=== PATIENT | male | born 2000 | race Caucasian/White ===

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

== ENCOUNTER 2019-03-16 20:12 | Emergency (ER) | payer MEDICAID ==
[2019-03-16 20:30] LABS: BILIRUBIN,URINE NEGATIVE (NEGATIVE); GLUCOSE, URINE (UA) NEGATIVE (NEGATIVE); KETONES,URINE (UA) TRACE mg/dL (NEGATIVE); LEUKOCYTE ESTERASE, URINE NEGATIVE (NEGATIVE); NITRITE,URINE NEGATIVE (NEGATIVE); OCCULT BLOOD,URINE NEGATIVE (NEGATIVE); PH,URINE 6.5 PH (5.0-7.5); PROTEIN,URINE TRACE mg/dL (NEGATIVE); UROBILINOGEN,URINE 0.2 (NORMAL) E.U./dL (NORMAL)
[2019-03-16 20:32] LABS: CLARITY,URINE CLEAR (CLEAR)
--- NOTE | 2019-03-16 20:47 | ED Physician Documentation ---
PD HPI BACK PAIN - Stated complaint Stated Complaint: BACK PX - Chief complaint Chief Complaint: Back Pain - History obtained from History obtained from: Patient - History of Present Illness Timing - onset: Other (Is a 18-year-old with 3 years of right flank pain. Is worse with motion. He thinks he has been losing weight with it and had a single episode of hematuria with it the other night. He has a lot of anxiety problems and it was only after significant coaxing that he sought medical attention for this. He is never seen a doctor for it before.) Review of Systems Constitutional: denies: Fever, Chills Nose: reports: Reviewed and negative Cardiac: reports: Reviewed and negative Respiratory: reports: Reviewed and negative GI: reports: Abdominal Pain. denies: Nausea, Vomiting, Constipation, Diarrhea PD PAST MEDICAL HISTORY - Past Medical History Past Medical History: No - Past Surgical History Past Surgical History: No - Present Medications Home Medications: Ambulatory Orders Medication Instructions Recorded Confirmed Cyclobenzaprine [Flexeril] 10 mg PO TID PRN #20 tablet 03/16/19 Ibuprofen [Motrin] 800 mg PO Q8H PRN #30 tablet 03/16/19 - Allergies Allergies/Adverse Reactions: Allergies Allergy/AdvReac Type Severity Reaction Status Date / Time No Known Drug Allergies Allergy Verified 03/16/19 20:17 - Social History Does the pt smoke?: Yes Smoking Status: Current every day smoker Does the pt drink ETOH?: No Does the pt have substance abuse?: No - Immunizations Immunizations are current?: Yes - POLST Patient has POLST: No PD ED PE NORMAL - Vitals Vital signs reviewed: Yes - General General: Alert and oriented X 3, No acute distress - Cardiac Cardiac: RRR, No murmur - Respiratory Respiratory: No respiratory distress, Clear bilaterally - Abdomen Abdomen: Normal bowel sounds, Soft, Non tender - Back Back: No spinal TTP, Other (Mod R flank TTP, no skin chgs) - Derm Derm: Normal color, Warm and dry - Extremities Extremities: No edema, No calf tenderness / cord - Neuro Neuro: Alert and oriented X 3, 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, Normal speech Results - Vitals Vitals: Vital Signs - 24 hr 03/16/19 03/16/19 03/16/19 20:15 20:17 21:37 Temperature 37.0 C Heart Rate 121 H 121 H 80 Respiratory 18 18 16 Rate Blood Pressure 137/78 H 137/78 H 119/68 O2 Saturation 98 98 97 Oxygen O2 Source Room air - Labs Labs: Laboratory Tests 03/16/19 03/16/19 03/16/19 20:20 20:50 20:50 WBC 7.7 RBC 4.68 L Hgb 14.7 Hct 42.5 MCV 90.8 MCH 31.4 H MCHC 34.6 RDW 13.0 Plt Count 252 MPV 9.0 Neut # (Auto) 4.4 Lymph # (Auto) 2.4 [place] # (Auto) 0.6 Eos # (Auto) 0.2 Baso # (Auto) 0.1 Absolute Nucleated RBC 0.00 Nucleated RBC % 0.0 Sodium 138 Potassium 3.6 Chloride 99 L Carbon Dioxide 31 Anion Gap 8.0 BUN 13 Creatinine 0.6 Estimated GFR (MDRD) 174 Glucose 116 H Calcium 9.3 Total Bilirubin 0.2 AST 19 ALT 15 Alkaline Phosphatase 75 Total Protein 7.0 Albumin 4.4 Globulin 2.6 Albumin/Globulin Ratio 1.7 Lipase 28 Urine Color YELLOW Urine Clarity CLEAR Urine pH 6.5 Ur Specific [place] 1.020 Urine Protein TRACE Urine Glucose (UA) NEGATIVE Urine Ketones TRACE Urine Occult Blood NEGATIVE Urine Nitrite NEGATIVE Urine Bilirubin NEGATIVE Urine Urobilinogen 0.2 (NORMAL) Ur Leukocyte Esterase NEGATIVE Ur Microscopic Review NOT INDICATED Urine Culture Comments NOT INDICATED - Rads (name of study) CT KUB Radiology: EMP read contemporaneously (Schmorls node low T spine. otherwise NAD) Departure - Departure Disposition: 01 Home, Self Care Clinical Impression: Back pain, Schmorl's node Condition: Good Record reviewed to determine appropriate education?: Yes Instructions: ED Neck Back Pain General Prescriptions: Cyclobenzaprine [Flexeril] 10 mg PO TID PRN #20 tablet PRN Reason: Spasms Ibuprofen [Motrin] 800 mg PO Q8H PRN #30 tablet PRN Reason: PAIN &/OR FEVER Comments: Your CAT scan does show Schmorl's nodes in the lower thoracic spine. These can cause pain and may be causing her chronic mid back pain. No other serious abnormalities were noted on the CAT scan or labs. Follow-up with your primary care physician, next available appointment for further evaluation and treatment. Return for new or worsening symptoms. Discharge Date/Time: 03/16/19 21:37
[2019-03-16 20:55] LABS: BASOPHILS # (AUTO) 0.1 10^3/uL (0.0-0.1); BASOPHILS % (AUTO) 0.8 %; EOSINOPHILS # (AUTO) 0.2 10^3/uL (0.0-0.7); EOSINOPHILS % (AUTO) 2.8 %; HGB - HEMOGLOBIN 14.7 g/dL (14.0-18.0); LYMPHOCYTES # (AUTO) 2.4 10^3/uL (1.5-3.5); LYMPHOCYTES % (AUTO) 31.4 %; MEAN CORPUSCULAR HEMOGLOBIN 31.4 pg (27.0-31.0); MEAN CORPUSCULAR HGB CONC 34.6 g/dL (32.0-36.0); MEAN CORPUSCULAR VOLUME 90.8 fL (80.0-94.0); MONOCYTES # (AUTO) 0.6 10^3/uL (0.0-1.0); MONOCYTES % (AUTO) 7.9 %; NEUTROPHILS # (AUTO) 4.4 10^3/uL (1.5-6.6); NEUTROPHILS % (AUTO) 57.1 %; PLT - PLATELET COUNT 252 10^3/uL (130-450); RED BLOOD COUNT 4.68 10^6/uL (4.70-6.10); WHITE BLOOD COUNT 7.7 x10^3/uL (4.8-10.8)
[2019-03-16 21:08] LABS: ALBUMIN 4.4 g/dL (3.2-5.5); ALBUMIN/GLOBULIN RATIO 1.7 (1.0-2.2); BILIRUBIN,TOTAL 0.2 mg/dL (0.2-1.0); CALCIUM 9.3 mg/dL (8.5-10.3); CREATININE 0.6 mg/dL (0.6-1.2)
--- NOTE | 2019-03-16 21:16 | CT Report ---
Reason: R flank pain Procedure Date: 03/16/2019 Accession Number: [id number] / [id number] Procedure: CT - Abdomen/Pelvis WO CPT Code: FULL RESULT: EXAM: CT ABDOMEN AND PELVIS (CT KUB) EXAM DATE: 03/16/2019 09:04 PM. CLINICAL HISTORY: R flank pain. Chronic lower back pain for multiple years. Blood in urine today. COMPARISONS: None. TECHNIQUE: Routine axial helical CT imaging was performed through the abdomen and pelvis without IV contrast. Reconstructions: Coronal and sagittal. In accordance with CT protocol optimization, one or more of the following dose reduction techniques were utilized for this exam: automated exposure control, adjustment of mA and/or KV based on patient size, or use of iterative reconstructive technique. FINDINGS: Lung Bases: Unremarkable. Right Kidney/Ureter: No stones, hydronephrosis, or hydroureter. No perinephric fat stranding. Left Kidney/Ureter: No stones, hydronephrosis, or hydroureter. No perinephric fat stranding. Other Solid Organs: Punctate right adrenal calcification. Remainder of abdominal organs are unremarkable on noncontrast imaging. Gallbladder/Bile Ducts: Contracted gallbladder. Peritoneal Cavity: Stomach is distended with ingested contents. Normal appendix inferior to cecum. Pelvic Organs: No bladder stones or wall thickening. Noncontrast images of the visualized pelvic organs are unremarkable. Vasculature: Unremarkable. Other: Lower thoracic spine Schmorl's nodes. IMPRESSION: 1. No urinary tract stones or obstruction. No source for hematuria demonstrated on noncontrast imaging. If persistent clinical concern, consider CT IVP. 2. Normal appendix. RADIA
[2019-03-16] MEDS ORDERED: CYCLOBENZAPRINE 10 MG TABLET PO STA (21:17)
[2019-03-16 21:38] VITALS: BP 119/68
== END 2019-03-16 21:37 | disposition home or self-care (01) ==
LOC: ED 20:12
DX: M54.9 Dorsalgia, unspecified (principal); M51.44 Schmorl's nodes, thoracic region; F41.9 Anxiety disorder, unspecified; F17.200 Nicotine dependence, unspecified, uncomplicated
CPT/HCPCS: 36415; 74176; 80053; 81003; 83690; 85025; 99283; A9270; 81001; 87086

== ENCOUNTER 2020-03-20 22:04 | Outpatient (CLI) | payer MEDICAID | END 2020-03-20 23:59 | disposition critical access hospital (66) | LOC: EMS 22:04 | PROVIDERS: ATTEND Surgery | DX: R45.851 Suicidal ideations (principal) | CPT/HCPCS: A0425; A0429; A0999 ==

== ENCOUNTER 2020-03-20 22:33 | Emergency (ER) | payer MEDICAID ==
[2020-03-20 22:51] LABS: MUDS CUTOFF CONCENTRATIONS CUTOFF CONC BELOW:
[2020-03-20 22:58] LABS: BILIRUBIN,URINE NEGATIVE (NEGATIVE); GLUCOSE, URINE (UA) NEGATIVE (NEGATIVE); KETONES,URINE (UA) TRACE mg/dL (NEGATIVE); LEUKOCYTE ESTERASE, URINE NEGATIVE (NEGATIVE); NITRITE,URINE NEGATIVE (NEGATIVE); OCCULT BLOOD,URINE NEGATIVE (NEGATIVE); PROTEIN,URINE 30 mg/dL (NEGATIVE); UROBILINOGEN,URINE 1 (NORMAL) E.U./dL (NORMAL)
[2020-03-20 22:59] LABS: BASOPHILS % (AUTO) 0.5 %; EOSINOPHILS # (AUTO) 0.1 10^3/uL (0.0-0.7); EOSINOPHILS % (AUTO) 1.2 %; HGB - HEMOGLOBIN 15.9 g/dL (14.0-18.0); LYMPHOCYTES # (AUTO) 2.1 10^3/uL (1.5-3.5); LYMPHOCYTES % (AUTO) 27.7 %; MEAN CORPUSCULAR HEMOGLOBIN 30.8 pg (27.0-31.0); MEAN CORPUSCULAR HGB CONC 34.3 g/dL (32.0-36.0); MEAN CORPUSCULAR VOLUME 89.7 fL (80.0-94.0); MEAN PLATELET VOLUME 10.5 fL (7.4-11.4); MONOCYTES # (AUTO) 0.6 10^3/uL (0.0-1.0); MONOCYTES % (AUTO) 8.4 %; NEUTROPHILS # (AUTO) 4.6 10^3/uL (1.5-6.6); NEUTROPHILS % (AUTO) 61.8 %; PLT - PLATELET COUNT 251 10^3/uL (130-450); RED BLOOD COUNT 5.16 10^6/uL (4.70-6.10); RED CELL DISTRIBUTION WIDTH 11.9 % (12.0-15.0); WHITE BLOOD COUNT 7.4 x10^3/uL (4.8-10.8)
[2020-03-20 23:02] LABS: AMPHETAMINE SCREEN,URINE NEGATIVE (NEGATIVE); BENZODIAZEPINES SCREEN, URINE NEGATIVE (NEGATIVE); COCAINE SCREEN URINE NEGATIVE (NEGATIVE); METHADONE SCREEN, URINE NEGATIVE (NEGATIVE); METHAMPHETAMINES SCREEN, URINE NEGATIVE (NEGATIVE); OPIATE SCREEN, URINE NEGATIVE (NEGATIVE); OXYCODONE SCREEN, URINE NEGATIVE (NEGATIVE); PROPOXYPHENE SCREEN, URINE NEGATIVE (NEGATIVE); TRICYCLIC ANTIDEPRESSANT,URINE NEGATIVE (NEGATIVE)
[2020-03-20 23:07] LABS: CLARITY,URINE CLEAR (CLEAR)
[2020-03-20 23:08] LABS: BACTERIA,URINE None Seen /HPF (None Seen); CASTS, URINE 3-5 Hyaline Casts /LPF; MUCUS,URINE Moderate Strands; RBC,URINE None Seen /HPF (0-5); SQUAMOUS EPITHELIAL CELL,UR NONE SEEN (<= Few)
[2020-03-20 23:15] LABS: ACETAMINOPHEN < 10 ug/mL (10-30); ALBUMIN 4.9 g/dL (3.2-5.5); ALKALINE PHOSPHATASE 83 IU/L (42-121); ALT ALANINE AMINOTRANSFERASE 15 IU/L (10-60); AST ASPARTATE AMINOTRANSFERASE 19 IU/L (10-42); BILIRUBIN,TOTAL 0.7 mg/dL (0.2-1.0); CALCIUM 9.8 mg/dL (8.5-10.3); CARBON DIOXIDE - CO2 26 mmol/L (21-32); CHLORIDE 104 mmol/L (101-111); CREATININE 0.7 mg/dL (0.6-1.2); GLUCOSE 122 mg/dL (70-100); LIPASE 22 U/L (22-51); SALICYLATE < 6.0 mg/dL; SODIUM 140 mmol/L (135-145); TOTAL PROTEIN 7.4 g/dL (6.7-8.2)
--- NOTE | 2020-03-20 23:30 | ED Physician Documentation ---
PD HPI MHE - Stated complaint Stated Complaint: SI - Chief complaint Chief Complaint: MHE - History obtained from History obtained from: Patient, Police - History of Present Illness Primary symptom: Suicidal ideation Timing - onset: Today (tonight) Pain level max: 0 Pain level now: 0 Contributing factors: Money Recently seen: Not recently seen - Additional information Additional information: brought to ED by police. Per written police report, patient approached the officer yelling "kill me, kill me". The report also indicates patient told the officer he feels his antidepressants "are not working", and "Rodolfo said he is tired of it all. Rodolfo said he is too scared to hurt himself." Patient is calm and cooperative in ED on my H+P. He says he is in a "new environment" and he feels that the friends he was with katherine did not recognize his distress and that they seemed indifferent to his increasing anxiety and stress. Patient tells me he has been more stressed recently because of being out of work (due to the COVID pandemic), which has caused him to have difficulty having money to feed himself. He says he has had to borrow from friends but recently has obtained some money but now his friends will not drive him to the [place] to buy food. Patient says he became increasingly upset about this tonight, began hyperventilating, and says he does not remember anything about running up to a police judge. He denies SI/HI/AH/VH at this time. He says he has been taking his antidepressant as prescribed. Review of Systems Cardiac: reports: Reviewed and negative Respiratory: reports: Reviewed and negative GI: reports: Reviewed and negative Psychiatric: reports: Anxiety. denies: Depressed, Suicidal (denies), Hallucinations, Delusions PD PAST MEDICAL HISTORY - Past Medical History Cardiovascular: None Respiratory: Asthma Neuro: None Endocrine/Autoimmune: None GI: None : None HEENT: None Psych: Depression, Anxiety Musculoskeletal: None Derm: None - Past Surgical History Past Surgical History: No - Present Medications Home Medications: Ambulatory Orders Medication Instructions Recorded Confirmed Duloxetine HCl 60 mg PO DAILY 03/21/20 03/21/20 - Allergies Allergies/Adverse Reactions: Allergies Allergy/AdvReac Type Severity Reaction Status Date / Time No Known Drug Allergies Allergy Verified 03/21/20 00:55 - Social History Does the pt smoke?: Yes Smoking Status: Current every day smoker Does the pt drink ETOH?: No Does the pt have substance abuse?: No Substance Use and Type: Marijuana - Immunizations Immunizations are current?: Yes - POLST Patient has POLST: No PD ED PE NORMAL - Vitals Vital signs reviewed: Yes - General General: Alert and oriented X 3, No acute distress, Well developed/nourished - HEENT HEENT: PERRL, EOMI - Neck Neck: Supple, no meningeal sign - Cardiac Cardiac: RRR, No murmur - Respiratory Respiratory: No respiratory distress, Clear bilaterally - Neuro Neuro: Alert and oriented X 3 Eye Opening: Spontaneous Motor: Obeys Commands Verbal: Oriented GCS Score: 15 - Psych Psych: Normal mood, Normal affect Results - Vitals Vitals: Vital Signs - 24 hr 03/20/20 03/20/20 03/21/20 22:43 22:46 00:46 Temperature 37.0 C 37.7 C H 36.8 C Heart Rate 104 H 120 H 92 Respiratory 20 16 Rate Blood Pressure 136/86 H 127/76 O2 Saturation 98 97 03/21/20 03:57 Temperature 36.7 C Heart Rate 90 Respiratory 16 Rate Blood Pressure 129/86 H O2 Saturation 100 Oxygen O2 Source Room air - Labs Labs: Laboratory Tests 03/20/20 03/20/20 03/20/20 21:44 21:44 22:53 WBC RBC Hgb Hct MCV MCH MCHC RDW Plt Count MPV Neut # (Auto) Lymph # (Auto) [place] # (Auto) Eos # (Auto) Baso # (Auto) Absolute Nucleated RBC Nucleated RBC % Sodium Potassium Chloride Carbon Dioxide Anion Gap BUN Creatinine Estimated GFR (MDRD) Glucose Calcium Total Bilirubin AST ALT Alkaline Phosphatase Total Protein Albumin Globulin Albumin/Globulin Ratio Lipase TSH Urine Color YELLOW Urine Clarity CLEAR Urine pH 7.0 Ur Specific [place] 1.025 Urine Protein 30 H Urine Glucose (UA) NEGATIVE Urine Ketones TRACE Urine Occult Blood NEGATIVE Urine Nitrite NEGATIVE Urine Bilirubin NEGATIVE Urine Urobilinogen 1 (NORMAL) Ur Leukocyte Esterase NEGATIVE Urine RBC None Seen Urine WBC 0-3 Ur Squamous Epith Cells NONE SEEN Urine Bacteria None Seen Urine Casts 3-5 Hyaline Casts Urine Mucus Moderate Strands Ur Microscopic Review INDICATED Urine Culture Comments NOT INDICATED Salicylates Urine Opiates Screen NEGATIVE Cancelled Ur Oxycodone Screen NEGATIVE Cancelled Urine Methadone Screen NEGATIVE Cancelled Ur Propoxyphene Screen NEGATIVE Cancelled Acetaminophen Ur Barbiturates Screen NEGATIVE Cancelled Ur Tricyclics Screen NEGATIVE Cancelled Ur Phencyclidine Scrn NEGATIVE Cancelled Ur Amphetamine Screen NEGATIVE Cancelled U Methamphetamines Scrn NEGATIVE Cancelled U Benzodiazepines Scrn NEGATIVE Cancelled Urine Cocaine Screen NEGATIVE Cancelled U Cannabinoids Screen POSITIVE H Cancelled Ethyl Alcohol < 5.0 03/20/20 03/20/20 03/20/20 22:53 22:53 22:53 WBC 7.4 RBC 5.16 Hgb 15.9 Hct 46.3 MCV 89.7 MCH 30.8 MCHC 34.3 RDW 11.9 L Plt Count 251 MPV 10.5 Neut # (Auto) 4.6 Lymph # (Auto) 2.1 [place] # (Auto) 0.6 Eos # (Auto) 0.1 Baso # (Auto) 0.0 Absolute Nucleated RBC 0.00 Nucleated RBC % 0.0 Sodium 140 Potassium 3.4 L Chloride 104 Carbon Dioxide 26 Anion Gap 10.0 BUN 12 Creatinine 0.7 Estimated GFR (MDRD) 144 Glucose 122 H Calcium 9.8 Total Bilirubin 0.7 AST 19 ALT 15 Alkaline Phosphatase 83 Total Protein 7.4 Albumin 4.9 Globulin 2.5 Albumin/Globulin Ratio 2.0 Lipase 22 TSH 1.19 Urine Color Urine Clarity Urine pH Ur Specific [place] Urine Protein Urine Glucose (UA) Urine Ketones Urine Occult Blood Urine Nitrite Urine Bilirubin Urine Urobilinogen Ur Leukocyte Esterase Urine RBC Urine WBC Ur Squamous Epith Cells Urine Bacteria Urine Casts Urine Mucus Ur Microscopic Review Urine Culture Comments Salicylates < 6.0 Urine Opiates Screen Ur Oxycodone Screen Urine Methadone Screen Ur Propoxyphene Screen Acetaminophen < 10 L Ur Barbiturates Screen Ur Tricyclics Screen Ur Phencyclidine Scrn Ur Amphetamine Screen U Methamphetamines Scrn U Benzodiazepines Scrn Urine Cocaine Screen U Cannabinoids Screen Ethyl Alcohol PD MEDICAL DECISION MAKING - ED course Complexity details: reviewed results, re-evaluated patient, considered differential, d/w patient ED course: MHP consulted and patient cleared for discharge home. He is able to contract for safety, demonstrates good insight regarding goals and need to return if he has thoughts of hurting self or others. Departure - Departure Disposition: 01 Home, Self Care Clinical Impression: Anxiety Condition: Good Instructions: ED Stress React Discharge Date/Time: 03/21/20 04:18
[2020-03-20 23:32] LABS: BUN - BLOOD UREA NITROGEN 12 mg/dL (6-20)
[2020-03-21 03:58] VITALS: BP 129/86
== END 2020-03-21 04:18 | disposition home or self-care (01) ==
LOC: EDUNIT# → ED 22:33
DX: F41.9 Anxiety disorder, unspecified (principal); F17.200 Nicotine dependence, unspecified, uncomplicated
CPT/HCPCS: 36415; 80048; 80053; 80306; 80307; 80320; 80329; 81001; 81003; 83690; 84443; 85025; 87086; 93005; 99283; 99284

== ENCOUNTER 2021-05-20 15:32 | Emergency (ER) | payer MEDICAID ==
[2021-05-20 15:44] VITALS: BP 122/85
--- NOTE | 2021-05-20 16:09 | ED Physician Documentation ---
History of Present Illness - Stated complaint Stated Complaint: UNABLE TO SLEEP - Chief complaint Chief Complaint: General - History obtained from History obtained from: Patient - Additonal information Additional information: 20-year-old gentleman is a homeless male with chronic back pain. He was referred to physical therapy for same but due to social determinants of health and lack of transportation he has never been able to go. He says he has chronic pain in his neck and back and it causes his legs to shake. Because of that he cannot sleep. States he has not slept in 4 days, thinks it is mostly because of the pain but also had a recent personal loss. No SI or HI. Review of Systems Constitutional: denies: Fever, Chills Eyes: reports: Reviewed and negative Ears: reports: Reviewed and negative Nose: reports: Reviewed and negative Throat: reports: Reviewed and negative Cardiac: reports: Reviewed and negative Respiratory: reports: Reviewed and negative PD PAST MEDICAL HISTORY - Past Medical History Respiratory: Asthma Psych: Depression, Anxiety - Past Surgical History Past Surgical History: No - Present Medications Home Medications: Ambulatory Orders Medication Instructions Recorded Confirmed DULoxetine [Cymbalta] 30 mg PO DAILY 05/20/21 05/20/21 Fluoxetine HCl [Prozac] 20 mg PO DAILY 05/20/21 05/20/21 HYDROcod/ACETAM 5/325 [[place] 5/325] 1 - 2 tab PO Q6H PRN #7 tablet 05/20/21 Propranolol [Inderal] 10 mg PO BID 05/20/21 05/20/21 hydrOXYzine HCL [Hydroxyzine HCl] 25 mg PO DAILY 05/20/21 05/20/21 - Allergies Allergies/Adverse Reactions: Allergies Allergy/AdvReac Type Severity Reaction Status Date / Time No Known Drug Allergies Allergy Verified 05/20/21 15:44 - Social History Does the pt smoke?: Yes Smoking Status: Current every day smoker Does the pt drink ETOH?: No Does the pt have substance abuse?: No - Immunizations Immunizations are current?: Yes - POLST Patient has POLST: No PD ED PE NORMAL - Vitals Vital signs reviewed: Yes - General General: Alert and oriented X 3, No acute distress - HEENT HEENT: Atraumatic, PERRL - Neck Neck: Supple, no meningeal sign, No bony TTP - Back Back: No CVA TTP, No spinal TTP - Derm Derm: Normal color, Warm and dry - Extremities Extremities: No edema, No calf tenderness / cord - Neuro Neuro: Alert and oriented X 3, No motor deficit, No sensory deficit, Normal speech Eye Opening: Spontaneous Motor: Obeys Commands Verbal: Oriented GCS Score: 15 - Psych Psych: Normal mood, Normal affect Results - Vitals Vitals: Vital Signs - 24 hr 05/20/21 15:35 Temperature 36.7 C Heart Rate 119 H Respiratory 18 Rate Blood Pressure 122/85 H O2 Saturation 95 Oxygen O2 Source Room air PD MEDICAL DECISION MAKING - ED course ED course: 20-year-old gentleman with insomnia due to chronic pain. 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 Discussed with him that I could give him either a few painkillers or some sleeping medicine. He asked for both. I discussed that standard of care is not to give both together and he is understanding. Offered to have him talk to the psychiatric social worker supervisor given his social issues which she declined. I am prescribing a short course of short-acting opioid pain medication for this patient. I have reviewed the patients HOUSE SUPERVISOR and no concerning findings were noted. I have discussed that the opioids are for short term therapy only, and will not be refilled from the ED. Departure - Departure Disposition: 01 Home, Self Care Clinical Impression: Back pain Qualifiers: Back pain location: low back pain Chronicity: chronic Back pain laterality: bilateral Sciatica presence: without sciatica Qualified Code(s): M54.5 - Low back pain Condition: Good Record reviewed to determine appropriate education?: Yes Instructions: ED Chronic Pain Management, ED Neck Back Pain General Prescriptions: HYDROcod/ACETAM 5/325 [[place] 5/325] 1 - 2 tab PO Q6H PRN #7 tablet PRN Reason: Pain Comments: I am prescribing a short course of narcotic pain medication for you. These are potentially dangerous and addictive medications that should be used carefully. These medications may constipate you. Take an [id number] stool softener (docusate) twice daily with plenty of water while taking these medications. If you go 24 hours without a bowel movement, take [id number] miralax, per package instructions. Do not drink or drive while taking these medications. If you received narcotic or sedating medications while in the emergency department, do not drive for 24 hours. Store this medication in a safe, secure place and out of reach of children. It is a violation of federal law to give or sell this medication to another person or to use in a manner other than prescribed. The ED will not refill narcotic prescriptions, including prescriptions lost or stolen. To dispose of unwanted medications: 1. [facility] at [address] in [place] has a medication drop box. They accept prescription medications (in pill form) Tuesday through Tuesday 9:00 a.m. to 5:00 p.m. 2. The [facility] accepts prescription medications (in pill form only) for disposal year round. Call for more information. 3. Contact the [facility] for the next [facility] sponsored prescription drug collection event. , [phone], or [phone]; Note that many narcotic pain relievers also contain Tylenol/acetaminophen. Please ensure that your total dose of acetaminophen from all sources does not exceed 3 g (3000 mg) per day.
== END 2021-05-20 16:12 | disposition home or self-care (01) ==
LOC: ED 15:32 → SUPCPDRO 15:32 → ED 16:12
DX: M54.5 Low back pain (principal); G89.29 Other chronic pain; F17.200 Nicotine dependence, unspecified, uncomplicated; Z59.0 Homelessness
CPT/HCPCS: 99282; 99283

== ENCOUNTER 2021-05-26 16:43 | Emergency (ER) | payer MEDICAID ==
[2021-05-26] MEDS ORDERED: BUPRENORPHINE 0.3 MG/ML VIAL IM ONE (20:01)
[2021-05-26] MEDS ORDERED: ONDANSETRON 4 MG/2 ML VIAL IM STA (20:02)
--- NOTE | 2021-05-26 20:05 | ED Physician Documentation ---
History of Present Illness - Stated complaint Stated Complaint: WITHDRAWLS - Chief complaint Chief Complaint: General - History obtained from History obtained from: Patient - History of Present Illness Timing: How many days ago (2) Pain level max: 6 Pain level now: 6 - Additonal information Additional information: 20-year-old male presents to the emergency department stating that he is going through narcotic withdrawals. He states he has been using fentanyl 4-5 times daily for the past several months. Last used 2 days ago. Nothing makes it better or worse. Has had some nausea and vomiting. No fevers. Some chills. Does have abdominal cramping. Patient states that he wants to go to detox tomorrow, but not tonight. He states that he will self refer to the crisis center in [place] tomorrow. Review of Systems Ten Systems: 10 systems reviewed and negative Constitutional: denies: Fever, Chills Nose: denies: Rhinorrhea / runny nose, Congestion Respiratory: denies: Cough, Wheezing GI: reports: Abdominal Pain (Crampy, diffuse), Nausea, Vomiting, Diarrhea Skin: denies: Rash Musculoskeletal: denies: Neck pain, Back pain Neurologic: denies: Headache PD PAST MEDICAL HISTORY - Past Medical History Cardiovascular: None Respiratory: Asthma Neuro: None Endocrine/Autoimmune: None GI: None : None HEENT: None Psych: Depression, Anxiety Musculoskeletal: None Derm: None - Past Surgical History Past Surgical History: No - Present Medications Home Medications: Ambulatory Orders Medication Instructions Recorded Confirmed DULoxetine [Cymbalta] 30 mg PO DAILY 05/20/21 05/20/21 Fluoxetine HCl [Prozac] 20 mg PO DAILY 05/20/21 05/20/21 HYDROcod/ACETAM 5/325 [[place] 5/325] 1 - 2 tab PO Q6H PRN #7 tablet 05/20/21 Propranolol [Inderal] 10 mg PO BID 05/20/21 05/20/21 hydrOXYzine HCL [Hydroxyzine HCl] 25 mg PO DAILY 05/20/21 05/20/21 - Allergies Allergies/Adverse Reactions: Allergies Allergy/AdvReac Type Severity Reaction Status Date / Time No Known Drug Allergies Allergy Verified 05/26/21 17:21 - Social History Does the pt smoke?: Yes Smoking Status: Current every day smoker Does the pt drink ETOH?: No Does the pt have substance abuse?: No - Immunizations Immunizations are current?: Yes - POLST Patient has POLST: No PD ED PE NORMAL - Vitals Vital signs reviewed: Yes - General General: Alert and oriented X 3, No acute distress, Well developed/nourished - HEENT HEENT: PERRL, Moist mucous membranes - Neck Neck: Supple, no meningeal sign - Cardiac Cardiac: RRR, Strong equal pulses - Respiratory Respiratory: No respiratory distress, Clear bilaterally - Abdomen Abdomen: Soft, Non tender, Non distended - Derm Derm: Warm and dry - Extremities Extremities: No edema - Neuro Neuro: Alert and oriented X 3 - Psych Psych: Normal mood, Normal affect Results - Vitals Vitals: Vital Signs - 24 hr 05/26/21 05/26/21 05/26/21 17:14 18:30 20:31 Temperature 36.9 C 36.6 C Heart Rate 108 H 86 86 Respiratory 20 16 12 Rate Blood Pressure 129/83 H 120/74 122/78 O2 Saturation 99 98 100 Oxygen O2 Source Room air PD MEDICAL DECISION MAKING - ED course Complexity details: considered differential, d/w patient ED course: Patient does not want any further work-up at this time. Given a dose of buprenorphine. Referred him to the detox facility in [place]. He does not want to go tonight. He has not suicidal or homicidal. Patient states that his family is supportive of him going to detox and he will call tomorrow. Patient counseled regarding signs and symptoms for which I believe and urgent re- evaluation would be necessary. Patient with good understanding of and agreement to plan and is comfortable going home at this time This document was made in part using voice recognition software. While efforts are made to proofread this document, sound alike and grammatical errors may occur. Departure - Departure Disposition: 01 Home, Self Care Clinical Impression: Narcotic withdrawal Condition: Good Instructions: ED Narcotic Abuse Follow-Up: LIT JORGENSEN PA-C [Primary Care Provider] - Comments: Please call the [facility] stabilization facility tomorrow for detox. They are [place] at [facility] [place] [address]. Their phone number is [phone]. Return if you worsen. Discharge Date/Time: 05/26/21 20:35
[2021-05-26 20:32] VITALS: BP 122/78
== END 2021-05-26 20:35 | disposition home or self-care (01) ==
LOC: ED 16:43
DX: F11.23 Opioid dependence with withdrawal (principal); F17.200 Nicotine dependence, unspecified, uncomplicated
CPT/HCPCS: 96372; 99283; 99284; J0592

== ENCOUNTER 2021-05-29 15:00 | Emergency (ER) | payer MEDICAID ==
[2021-05-29 15:07] VITALS: BP 170/99
== END 2021-05-29 18:02 | disposition left against medical advice (07) ==
LOC: ED 15:00
DX: Z53.21 Procedure and treatment not carried out due to patient leaving prior to being seen by health care provider (principal)

== ENCOUNTER 2021-06-03 17:56 | Emergency (ER) | payer MEDICAID ==
[2021-06-03 18:49] LABS: BASOPHILS # (AUTO) 0.1 10^3/uL (0.0-0.1); BASOPHILS % (AUTO) 0.7 %; EOSINOPHILS # (AUTO) 0.1 10^3/uL (0.0-0.7); EOSINOPHILS % (AUTO) 1.7 %; HGB - HEMOGLOBIN 14.1 g/dL (14.0-18.0); LYMPHOCYTES # (AUTO) 2.1 10^3/uL (1.5-3.5); LYMPHOCYTES % (AUTO) 28.6 %; MEAN CORPUSCULAR HEMOGLOBIN 31.1 pg (27.0-31.0); MEAN CORPUSCULAR HGB CONC 33.6 g/dL (32.0-36.0); MEAN CORPUSCULAR VOLUME 92.5 fL (80.0-94.0); MONOCYTES # (AUTO) 0.7 10^3/uL (0.0-1.0); MONOCYTES % (AUTO) 9.2 %; NEUTROPHILS # (AUTO) 4.3 10^3/uL (1.5-6.6); NEUTROPHILS % (AUTO) 59.7 %; PLT - PLATELET COUNT 250 10^3/uL (130-450); RED BLOOD COUNT 4.54 10^6/uL (4.70-6.10); RED CELL DISTRIBUTION WIDTH 12.3 % (12.0-15.0); WHITE BLOOD COUNT 7.2 x10^3/uL (4.8-10.8)
[2021-06-03] MEDS ORDERED: SODIUM CHLORIDE 0.9% 1,000 ML IV STA (18:58)
[2021-06-03 19:01] LABS: ALBUMIN 4.5 g/dL (3.2-5.5); BILIRUBIN,TOTAL 0.8 mg/dL (0.2-1.0); CALCIUM 9.1 mg/dL (8.5-10.3); CREATININE 0.7 mg/dL (0.6-1.2); POTASSIUM 3.4 mmol/L (3.5-5.0); TOTAL PROTEIN 6.8 g/dL (6.7-8.2)
--- NOTE | 2021-06-03 19:01 | XRAY Report ---
PROCEDURE: Chest 1 View X-Ray INDICATIONS: Chest pain TECHNIQUE: One view of the chest was acquired. COMPARISON: CT abdomen pelvis 03/16/2019. FINDINGS: Surgical changes and devices: None. Lungs and pleura: No acute consolidation. There is a small nodular opacity projecting over the later al left lung base measuring up to 1.9 cm. No pleural effusions or pneumothorax. Mediastinum: Mediastinal contours appear normal. Heart size is normal. Bones and chest wall: No suspicious bony lesions. Overlying soft tissues appear unremarkable. IMPRESSION: 1. No acute consolidation. 2. Small nodular opacity projecting laterally over the left lung base. The finding is nonspecific and may represent a possible nipple shadow but a pulmonary nodule cannot be excluded. No discrete correl ate visualized in the lung bases on the prior abdominal CT. Consider follow-up PA and lateral study w ith nipple markers for further evaluation. Reviewed by: Willem Torres MD on 06/03/2021 7:00 PM PDT Approved by: Willem Torres MD on 06/03/2021 7:00 PM PDT Station ID: [id number]
--- NOTE | 2021-06-03 19:16 | ED Physician Documentation ---
History of Present Illness - Stated complaint Stated Complaint: ELEVATED HEART RATE, HEADACHE,CP - Chief complaint Chief Complaint: General - Additonal information Additional information: 20-year-old male presents to the emergency department for evaluation of tachycardia. He reports that for much of the last 3 months he has noted that his heart rate is consistently higher than 100. He denies any has chest pain but sometimes has some shortness of air. He does have a history of fentanyl abuse and was seen in this ER for similar about 1 week ago. He did enter into a detox and was started on Suboxone. He is supposed to be take 1.5 strips daily sublingually. He states that he feels better now that he is on the Suboxone but his elevated heart rates are causing him to be anxious. Because he has restless leg syndrome and chronic low back pain he takes trazodone and methocarbamol. He read some literature that stated duloxetine should not be taken with trazodone so he has not taken that for a few days. He decided this afternoon to smoke some cannabis to see if it would relax him and improve his heart rate but his heart rate only got higher. He denies any fainting episodes, no leg pain or headaches. Review of Systems Constitutional: denies: Fever, Chills Eyes: reports: Reviewed and negative Ears: reports: Reviewed and negative Nose: reports: Reviewed and negative Throat: reports: Reviewed and negative Cardiac: reports: Palpitations. denies: Chest pain / pressure, Pedal edema, Calf pain Respiratory: denies: Dyspnea, Cough, Hemoptysis, Wheezing : reports: Reviewed and negative Skin: reports: Reviewed and negative Musculoskeletal: reports: Reviewed and negative Neurologic: reports: Reviewed and negative PD PAST MEDICAL HISTORY - Past Medical History Past Medical History: Yes Cardiovascular: None Respiratory: Asthma Neuro: None Endocrine/Autoimmune: None GI: None : None HEENT: None Psych: Depression, Anxiety, Panic attacks Musculoskeletal: None Derm: None - Past Surgical History Past Surgical History: No - Present Medications Home Medications: Ambulatory Orders Medication Instructions Recorded Confirmed DULoxetine [Cymbalta] 30 mg PO DAILY 05/20/21 06/03/21 hydrOXYzine HCL [Hydroxyzine HCl] 25 mg PO DAILY 05/20/21 06/03/21 Buprenorphine HCl/Naloxone HCl 2 film DAILY 06/03/21 06/03/21 [Suboxone 8 mg-2 mg Sl Film] Trazodone HCl 100 mg QPM 06/03/21 06/03/21 clonazePAM [Clonazepam] 0.5 mg PO DAILY 06/03/21 06/03/21 methocarbamoL [Methocarbamol] 500 mg Q8H PRN 06/03/21 06/03/21 - Allergies Allergies/Adverse Reactions: Allergies Allergy/AdvReac Type Severity Reaction Status Date / Time No Known Drug Allergies Allergy Verified 06/03/21 18:18 - Social History Does the pt smoke?: Yes Smoking Status: Current every day smoker Does the pt drink ETOH?: No Does the pt have substance abuse?: Yes Substance Use and Type: Marijuana, Other - Immunizations Immunizations are current?: Yes - POLST Patient has POLST: No PD ED PE EXPANDED - General General: Alert, No acute distress - Cardiac Cardiac: Tachy, Murmur Present, Radial strong equal, Pedal strong equal, Cap refill < 2 sec - Respiratory Respiratory: Clear to ausultation patrica. No: Distress, Labored - Abdomen Abdomen: Normal Bowel sounds. No: Tender to palpation - Neuro Neuro: Alert and Oriented X 3, CNII-XII intact - GCS Eye Opening: Spontaneous Motor: Obeys Commands Verbal: Oriented Total: 15 Results - Vitals Vitals: Vital Signs - 24 hr 06/03/21 06/03/21 06/03/21 18:18 18:56 19:36 Temperature 37.4 C Heart Rate 127 H 128 H 109 H Respiratory 18 24 15 Rate Blood Pressure 151/84 H 166/84 H 118/62 O2 Saturation 96 98 98 Oxygen O2 Source Room air - EKG (time done) 1821 Rate: Rate (enter#) (120) Rhythm: Sinus tachycardia [place]: Normal Intervals: Normal IL. No: Prolonged QT Ischemia: Non specific changes Compare to prior EKG: Changed from prior EKG (now showing sinus tachycardia) Computer interpretation: Agree with computer - Labs Labs: Laboratory Tests 06/03/21 06/03/21 06/03/21 18:40 18:40 18:40 WBC 7.2 RBC 4.54 L Hgb 14.1 Hct 42.0 MCV 92.5 MCH 31.1 H MCHC 33.6 RDW 12.3 Plt Count 250 MPV 10.0 Neut # (Auto) 4.3 Lymph # (Auto) 2.1 [place] # (Auto) 0.7 Eos # (Auto) 0.1 Baso # (Auto) 0.1 Absolute Nucleated RBC 0.00 Nucleated RBC % 0.0 D-Dimer Sodium 138 Potassium 3.4 L Chloride 98 L Carbon Dioxide 31 Anion Gap 9.0 BUN 11 Creatinine 0.7 Estimated GFR (MDRD) 142 Glucose 106 H Calcium 9.1 Total Bilirubin 0.8 AST 13 ALT 18 Alkaline Phosphatase 69 Troponin I High Sens < 2.3 L Total Protein 6.8 Albumin 4.5 Globulin 2.3 Albumin/Globulin Ratio 2.0 Lipase 35 06/03/21 19:23 WBC RBC Hgb Hct MCV MCH MCHC RDW Plt Count MPV Neut # (Auto) Lymph # (Auto) [place] # (Auto) Eos # (Auto) Baso # (Auto) Absolute Nucleated RBC Nucleated RBC % D-Dimer < 200.0 L Sodium Potassium Chloride Carbon Dioxide Anion Gap BUN Creatinine Estimated GFR (MDRD) Glucose Calcium Total Bilirubin AST ALT Alkaline Phosphatase Troponin I High Sens Total Protein Albumin Globulin Albumin/Globulin Ratio Lipase - Rads (name of study) CXR Radiology: Final report received (no acute process) PD MEDICAL DECISION MAKING - ED course Complexity details: reviewed results, re-evaluated patient, considered differential, d/w patient ED course: 20-year-old male presents the emergency department for evaluation of his elevated heart rate. He reports has been consistently elevated for a number of months. This gentleman does have a history of substance abuse including fentanyl for which she was recently started on Suboxone last week. He also endorses cannabis use today. He also unfortunately has a number of medications that he takes for various disorders that include insomnia, restless leg, anxiety and depression. Today his EKG does show sinus tachycardia. His screening labs are unrevealing. High-sensitivity troponin is negative. Chest x-ray is without any acute focal findings. I suspect a component of his tachycardia is related to anxiety. Certainly polypharmacy could be contributing as well. Patient will be discharged to follow-up with his primary care provider. I have encouraged him to discuss closely the number of medications that he takes and attempt to limit them. He may benefit from being placed on propanolol. He wou ld also benefit from an outpatient Holter monitor as well as an echocardiogram. Emergent return precautions were discussed for worsening symptoms. Departure - Departure Disposition: Home, Self Care Clinical Impression: Tachycardia, Polypharmacy Condition: Stable Record reviewed to determine appropriate education?: Yes Follow-Up: LIT JORGENSEN PA-C [Primary Care Provider] - Comments: Rodolfo you are seen in the ER today for concerns of an elevated heart rate. While your heart rate has been elevated it seems to vary between the high 90s in the low 120s. Your rhythm is what we call the sinus tachycardia. Your screening labs do not show any worrisome findings. You are not having a heart attack and your chest x-ray does not show a collapsed lung or pneumonia. I suspect that the cause of your elevated heart rate is due to substance use, smoking, anxiety as well as the number of medications that you take to control some of the symptoms. At this time it is important that you discuss your medications with your primary care provider. It may be helpful for you to have your medications tailored to you specifically. You would also benefit from an outpatient echocardiogram or a Holter monitor to monitor your heart rate and heart function over the long-term. At any point you develop fevers, have chest pain, shortness of air or have fainting episodes please return to the ER for a second look.
[2021-06-03] MEDS ORDERED: LORazepam 2 MG/ML VIAL IVP STA (19:18)
[2021-06-03 20:02] VITALS: BP 118/61
== END 2021-06-03 20:02 | disposition home or self-care (01) ==
LOC: ED 17:56
DX: R00.0 Tachycardia, unspecified (principal); F41.9 Anxiety disorder, unspecified; F19.90 Other psychoactive substance use, unspecified, uncomplicated; G25.81 Restless legs syndrome; M54.5 Low back pain; G89.29 Other chronic pain; F17.200 Nicotine dependence, unspecified, uncomplicated
CPT/HCPCS: 36415; 71045; 80053; 83690; 84484; 85025; 85379; 93005; 96374; 99284; J2060

== ENCOUNTER 2021-07-03 22:00 | Outpatient (CLI) | payer MEDICAID | END 2021-07-03 22:01 | disposition critical access hospital (66) | LOC: EMS 22:00 | DX: T14.90XA Injury, unspecified, initial encounter (principal); V47.5XXA Car driver injured in collision with fixed or stationary object in traffic accident, initial encounter; Y93.89 Activity, other specified; Y92.414 Local residential or business street as the place of occurrence of the external cause | CPT/HCPCS: A0425; A0427; A0999 ==

== ENCOUNTER 2021-07-03 22:28 | Emergency (ER) | payer MEDICAID ==
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
[2021-07-03] MEDS ORDERED: MORPHINE 2 MG/ML CARPUJECT IVP STA (22:46)
[2021-07-03] MEDS ORDERED: SODIUM CHLORIDE 0.9% 1,000 ML IV STA (22:46)
[2021-07-03 22:52] LABS: BASOPHILS # (AUTO) 0.1 10^3/uL (0.0-0.1); BASOPHILS % (AUTO) 0.6 %; EOSINOPHILS # (AUTO) 0.1 10^3/uL (0.0-0.7); HCT - HEMATOCRIT 42.8 % (42.0-52.0); HGB - HEMOGLOBIN 14.5 g/dL (14.0-18.0); LYMPHOCYTES # (AUTO) 1.8 10^3/uL (1.5-3.5); LYMPHOCYTES % (AUTO) 18.4 %; MEAN CORPUSCULAR HEMOGLOBIN 30.9 pg (27.0-31.0); MEAN CORPUSCULAR HGB CONC 33.9 g/dL (32.0-36.0); MEAN CORPUSCULAR VOLUME 91.3 fL (80.0-94.0); MEAN PLATELET VOLUME 10.5 fL (7.4-11.4); MONOCYTES # (AUTO) 0.8 10^3/uL (0.0-1.0); MONOCYTES % (AUTO) 7.9 %; NEUTROPHILS # (AUTO) 6.9 10^3/uL (1.5-6.6); NEUTROPHILS % (AUTO) 70.7 %; PLT - PLATELET COUNT 288 10^3/uL (130-450); RED BLOOD COUNT 4.69 10^6/uL (4.70-6.10); RED CELL DISTRIBUTION WIDTH 12.2 % (12.0-15.0); WHITE BLOOD COUNT 9.7 x10^3/uL (4.8-10.8)
[2021-07-03 23:02] LABS: ALBUMIN 4.5 g/dL (3.2-5.5); ALBUMIN/GLOBULIN RATIO 1.7 (1.0-2.2); ALKALINE PHOSPHATASE 69 IU/L (42-121); ALT ALANINE AMINOTRANSFERASE 16 IU/L (10-60); AST ASPARTATE AMINOTRANSFERASE 26 IU/L (10-42); BILIRUBIN,TOTAL 0.7 mg/dL (0.2-1.0); BUN - BLOOD UREA NITROGEN 14 mg/dL (6-20); CALCIUM 9.7 mg/dL (8.5-10.3); CARBON DIOXIDE - CO2 23 mmol/L (21-32); CHLORIDE 108 mmol/L (101-111); CREATININE 0.8 mg/dL (0.6-1.2); ETOH - ETHANOL < 5.0 mg/dL; GFR - MDRD 122 (>89); GLUCOSE 158 mg/dL (70-100); LIPASE 32 U/L (22-51); POTASSIUM 3.1 mmol/L (3.5-5.0); SODIUM 144 mmol/L (135-145); TOTAL PROTEIN 7.1 g/dL (6.7-8.2)
[2021-07-03] MEDS ORDERED: IOPAMIDOL-300 100 ML VIAL IVP ONE (23:31)
[2021-07-03] MEDS ORDERED: IOPAMIDOL-300 100 ML VIAL ONE (23:36)
[2021-07-04] MEDS ORDERED: TETANUS/DIPHTHERIA/PERTUSSIS 0.5 ML SYRINGE IM ONE (00:01)
[2021-07-04] MEDS ORDERED: HYDROmorphone 1 MG/ML CARPUJECT IVP STA ×2 (00:07→01:13)
[2021-07-04] MEDS ORDERED: BUFFERED LIDOCAINE 10 ML SYRINGE SUBQ STA (00:15)
[2021-07-04] MEDS ORDERED: SODIUM CHLORIDE 0.9% 500 ML IV STA (00:54)
[2021-07-04 01:06] VITALS: BP 138/82
[2021-07-04 02:07] LABS: B. PARAPERTUSSIS- RESP PCR PAN NOT DETECTED; B. PERTUSSIS- RESP PCR PANEL NOT DETECTED; C. PNEUMONIAE- RESP PCR PANEL NOT DETECTED; CORONAVIRUS 229E-RESP PCR NOT DETECTED; CORONAVIRUS HKU1-RESP PCR NOT DETECTED; CORONAVIRUS NL63-RESP PCR NOT DETECTED; CORONAVIRUS OC43-RESP PCR NOT DETECTED; HUMAN METAPNEUMOVIRUS NOT DETECTED; INFLUENZA A- RESP PCR PANEL NOT DETECTED; INFLUENZA B - RESP PCR PANEL NOT DETECTED; M. PNEUMONIAE- RESP PCR PANEL NOT DETECTED; PARAINFLUENZA VIRUS 1 NOT DETECTED; PARAINFLUENZA VIRUS 2 NOT DETECTED; PARAINFLUENZA VIRUS 3 NOT DETECTED; PARAINFLUENZA VIRUS 4 NOT DETECTED; RHINOVIRUS/ENTEROVIRUS NOT DETECTED; RSV- RESP PCR PANEL NOT DETECTED; SARS-CoV-2 -RESP PCR PANEL NOT DETECTED
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
== END 2021-07-04 01:30 | disposition short-term general hospital (02) ==
LOC: EDUNIT# → ED 22:28 → SUPCPDRO 22:28 → ED 07-04 01:30
DX: S12.490A Other displaced fracture of fifth cervical vertebra, initial encounter for closed fracture (principal); S12.691A Other nondisplaced fracture of seventh cervical vertebra, initial encounter for closed fracture; S51.022A Laceration with foreign body of left elbow, initial encounter; S20.219A Contusion of unspecified front wall of thorax, initial encounter; S30.1XXA Contusion of abdominal wall, initial encounter; V48.5XXA Car driver injured in noncollision transport accident in traffic accident, initial encounter; Y92.410 Unspecified street and highway as the place of occurrence of the external cause; Z23 Encounter for immunization; Z20.822 Contact with and (suspected) exposure to COVID-19; F17.200 Nicotine dependence, unspecified, uncomplicated
CPT/HCPCS: 0202U; 36415; 70450; 71260; 72125; 73080; 74177; 80053; 80320; 83690; 85025; 90471; 90715; 96374; 96375; 96376; 99284; 99285; J1170; Q9967

== ENCOUNTER 2021-11-17 10:46 | Emergency (ER) | payer MEDICAID ==
[2021-11-17 10:55] VITALS: BP 132/73
[2021-11-17 12:33] LABS: BASOPHILS # (AUTO) 0.1 10^3/uL (0.0-0.1); BASOPHILS % (AUTO) 0.7 %; EOSINOPHILS % (AUTO) 0.6 %; HCT - HEMATOCRIT 48.9 % (42.0-52.0); HGB - HEMOGLOBIN 16.6 g/dL (14.0-18.0); LYMPHOCYTES # (AUTO) 1.5 10^3/uL (1.5-3.5); LYMPHOCYTES % (AUTO) 22.7 %; MEAN CORPUSCULAR HEMOGLOBIN 30.4 pg (27.0-31.0); MEAN CORPUSCULAR HGB CONC 33.9 g/dL (32.0-36.0); MEAN CORPUSCULAR VOLUME 89.6 fL (80.0-94.0); MEAN PLATELET VOLUME 10.2 fL (7.4-11.4); MONOCYTES # (AUTO) 0.8 10^3/uL (0.0-1.0); MONOCYTES % (AUTO) 11.8 %; NEUTROPHILS # (AUTO) 4.3 10^3/uL (1.5-6.6); NEUTROPHILS % (AUTO) 64.1 %; PLT - PLATELET COUNT 346 10^3/uL (130-450); RED BLOOD COUNT 5.46 10^6/uL (4.70-6.10); RED CELL DISTRIBUTION WIDTH 12.3 % (12.0-15.0); WHITE BLOOD COUNT 6.8 x10^3/uL (4.8-10.8)
[2021-11-17 12:52] LABS: ACETAMINOPHEN < 10 ug/mL (10-30); ALBUMIN 4.9 g/dL (3.2-5.5); ALBUMIN/GLOBULIN RATIO 1.6 (1.0-2.2); ALKALINE PHOSPHATASE 81 IU/L (42-121); ALT ALANINE AMINOTRANSFERASE 14 IU/L (10-60); AST ASPARTATE AMINOTRANSFERASE 18 IU/L (10-42); BILIRUBIN,TOTAL 0.6 mg/dL (0.2-1.0); BUN - BLOOD UREA NITROGEN 12 mg/dL (6-20); CALCIUM 9.9 mg/dL (8.5-10.3); CARBON DIOXIDE - CO2 27 mmol/L (21-32); CHLORIDE 99 mmol/L (101-111); CREATININE 0.9 mg/dL (0.6-1.2); ETOH - ETHANOL < 5.0 mg/dL; GFR - MDRD 107 (>89); GLUCOSE 110 mg/dL (70-100); LIPASE 29 U/L (22-51); POTASSIUM 3.4 mmol/L (3.5-5.0); SALICYLATE < 6.0 mg/dL; SODIUM 139 mmol/L (135-145); TOTAL PROTEIN 7.9 g/dL (6.7-8.2)
== END 2021-11-17 13:28 | disposition left against medical advice (07) ==
LOC: ED 10:46
DX: Z53.21 Procedure and treatment not carried out due to patient leaving prior to being seen by health care provider (principal)
CPT/HCPCS: 36415; 80053; 80307; 80320; 80329; 83690; 84443; 85025

== ENCOUNTER 2021-11-30 21:20 | Outpatient (CLI) | payer MEDICAID | END 2021-11-30 21:21 | disposition critical access hospital (66) | LOC: EMS 21:20 | DX: T40.2X2A Poisoning by other opioids, intentional self-harm, initial encounter (principal) | CPT/HCPCS: A0425; A0427; A0999 ==

== ENCOUNTER 2021-11-30 21:49 | Emergency (ER) | payer MEDICAID ==
--- NOTE | 2021-11-30 22:16 | ED Physician Documentation ---
History of Present Illness - Stated complaint Stated Complaint: OVERDOSE - Chief complaint Chief Complaint: General - History obtained from History obtained from: Patient, EMS - Additonal information Additional information: Patient comes emergency department chief complaint of "I overdosed on fent- percs". The patient has history of opiate abuse and states that tonight, he does feel like sleeping. He states that he took 1 Fent-Perc (fentanyl+Percocet) tablet at 1500 and then another half tab at 1600. Patient states that by around 1999, he still had not gotten the effect he was aiming for, so he took another 1-1/2 tabs. Patient states that sometime after that he must have "passed out". Medics state that the father told them that the patient was unresponsive, and breathing shallowly. When they arrived, the patient was still breathing on his own, but respirations were slow and shallow and so they gave him Narcan. The patient responded very well and was awake and talking. The patient is able to answer questions, despite being drowsy, and states that he was not trying to commit suicide. He states that he actually does not use opiates as much as he used to, and that he used to take 10 Fent-Perc tabs per day, but now is down to 4-5. He has had 3 tablets this evening and no others earlier. Patient does note that he took his methocarbamol and antidepressant earlier in the day. No other drugs. No alcohol. No other complaints at this time. Review of Systems Ten Systems: 10 systems reviewed and negative Constitutional: reports: Reviewed and negative Eyes: reports: Reviewed and negative Ears: reports: Reviewed and negative Nose: reports: Reviewed and negative Throat: reports: Reviewed and negative Cardiac: reports: Reviewed and negative Respiratory: reports: Reviewed and negative GI: reports: Reviewed and negative : reports: Reviewed and negative Skin: reports: Reviewed and negative Musculoskeletal: reports: Reviewed and negative Neurologic: reports: Altered mental status, Unresponsive Psychiatric: reports: Reviewed and negative Endocrine: reports: Reviewed and negative Immunocompromised: reports: Reviewed and negative PD PAST MEDICAL HISTORY - Past Medical History Cardiovascular: None Respiratory: Asthma Neuro: None Endocrine/Autoimmune: None GI: None : None HEENT: None Psych: Depression, Anxiety, Panic attacks Musculoskeletal: None Derm: None - Past Surgical History Past Surgical History: No - Present Medications Home Medications: Ambulatory Orders Medication Instructions Recorded Confirmed DULoxetine [Cymbalta] 30 mg PO DAILY 05/20/21 07/03/21 hydrOXYzine HCL [Hydroxyzine HCl] 25 mg PO DAILY 05/20/21 07/03/21 Buprenorphine HCl/Naloxone HCl 2 film DAILY 06/03/21 07/03/21 [Suboxone 8 mg-2 mg Sl Film] Trazodone HCl 100 mg QPM 06/03/21 07/03/21 clonazePAM [Clonazepam] 0.5 mg PO DAILY 06/03/21 07/03/21 methocarbamoL [Methocarbamol] 500 mg Q8H PRN 06/03/21 07/03/21 - Allergies Allergies/Adverse Reactions: Allergies Allergy/AdvReac Type Severity Reaction Status Date / Time No Known Drug Allergies Allergy Verified 11/17/21 10:51 - Social History Does the pt smoke?: Yes Smoking Status: Current every day smoker Does the pt drink ETOH?: No Does the pt have substance abuse?: Yes - Immunizations Immunizations are current?: Yes - POLST Patient has POLST: No PD ED PE NORMAL - Vitals Vital signs reviewed: Yes - General General: No acute distress, Other (The patient is drowsy, and dozes off occasionally during conversation, but is actually able to answer questions coherently and fairly briskly. He gives a consistent history. 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 He gives a coherent and consistent history and answers questions appropriately.) - Psych Psych: Normal mood, Normal affect Results - Vitals Vitals: Oxygen O2 Source Room air PD MEDICAL DECISION MAKING - ED course Complexity details: considered differential, d/w patient ED course: The patient had been given Narcan in route and had responded fairly well. As he was still quite drowsy, we did observe him in the emergency department. However, by the time of arrival, it had already been 2 hours since his last ingestion of the Fent-Perc, and pt was easily arousable. Pt's condition steadily improved in the ED, and he was deemed stable for d/c. He was dispensed IN Narcan from the ED, and was counseled regarding its use, as well as the need to get help with his drug use and the availability of resources. We have discussed the usual indications for return. Departure - Departure Disposition: 01 Home, Self Care Clinical Impression: Opiate abuse, continuous Condition: Stable Instructions: ED Narcotic Abuse Comments: You have been observed in the emergency department tonight, and found to be heavily drowsy, but breathing well and able to be aroused. You have been treated with a dose of Narcan this evening by EMS, as well as when here in the emergency department. You have also been dispensed a Narcan nasal spray [facility], and should keep this on hand to use if you feel you have taken too much of the opiates. Friends or family should also know where you keep this medication in case you need it. However, most ideally would be for you to get help with your drug use and overcome the habit, as it is detrimental to your health and life, and also put you at risk of . Please consider seeking help in this regard. Discharge Date/Time: 12/01/21 01:06
[2021-11-30] MEDS ORDERED: NALOXONE 0.4 MG/ML VIAL IVP STA (22:43)
[2021-11-30] MEDS ORDERED: NALOXONE HCL NASAL SPRAY KIT NAS STA (23:47)
[2021-12-01] MEDS ORDERED: NALOXONE HCL NASAL SPRAY KIT NAS ONE (00:04)
[2021-12-01 00:59] VITALS: BP 123/81
== END 2021-12-01 01:06 | disposition home or self-care (01) ==
LOC: EDUNIT# → ED 21:49
DX: F11.188 Opioid abuse with other opioid-induced disorder (principal); T40.411A Poisoning by fentanyl or fentanyl analogs, accidental (unintentional), initial encounter; T40.2X1A Poisoning by other opioids, accidental (unintentional), initial encounter; R41.82 Altered mental status, unspecified; F17.200 Nicotine dependence, unspecified, uncomplicated
CPT/HCPCS: 96374; 99283; 99284; G2215

== ENCOUNTER 2022-11-22 15:45 | Outpatient (CLI) | payer MEDICAID | END 2022-11-22 15:46 | disposition critical access hospital (66) | LOC: EMS 15:45 | DX: R20.0 Anesthesia of skin (principal) | CPT/HCPCS: A0425; A0429; A0999 ==

== ENCOUNTER 2022-11-22 16:07 | Emergency (ER) | payer MEDICAID ==
[2022-11-22 16:19] VITALS: BP 144/91
--- OUTSIDE RECORDS SUMMARY | 2022-11-22 16:22 | EXTERNAL MEDICAL SUMMARY RPT | Continuity of Care Document ---
:2000 Author Organization [place] Address [address] [place] [address] Phone Care Team Providers Name Role Phone LienSilvia solis Unavailable Unavailable Allergies and Intolerances date description facility type (no date) No Known Drug Allergies [facility] ([facility] own) Encounters No information. Functional Status No information. Immunizations No information. Medications date description facility 2022-10-22 00:00 Sulfamethoxazole-Trimethoprim [facility] 2022-10-22 00:00 Amoxicillin-Pot Clavulanate [facility] Problems date description facility 2022-10-22 00:00 Cellulitis [facility] Procedures date description facility 2022-10-22 00:00 CT facial bones w [facility] Results/Labs test date author facility value unit interpret ation Result panel 1 (unknown) (no date[facility] Result panel 2 (unknown) (no date) (unknown[facility]) Result panel 3 (unknown) (no date) (unknown[facility]) Result panel 4 (unknown) (no date) (unknown[facility]) Result panel 5 (unknown) (no date) (unknown[facility]) Result panel 6 (unknown) (no date) (unknown[facility]) Result panel 7 (unknown) (no date) (unknown[facility]) Result panel 8 (unknown) (no date) (unknown[facility]) Result panel 9 (unknown) (no date) (unknown[facility]) Result panel 10 (unknown) (no date) (unknown[facility]) Result panel 11 (unknown) (no date) (unknown[facility]) Result panel 12 (unknown) (no date) (unknown[facility]) Result panel 13 (unknown) (no date) (unknown[facility]) Result panel 14 (unknown) (no date) (unknown[facility]) Result panel 15 (unknown) (no date) (unknown[facility]) Result panel 16 (unknown) (no date) (unknown[facility]) Result panel 17 (unknown) (no date) (unknown[facility]) Result panel 18 (unknown) (no date) (unknown[facility]) Result panel 19 (unknown) (no date) (unknown[facility]) Result panel 20 (unknown) (no date) (unknown[facility]) Result panel 21 (unknown) (no date) (unknown[facility]) Result panel 22 (unknown) (no date) (unknown[facility]) Result panel 23 (unknown) (no date) (unknown[facility]) Result panel 24 (unknown) (no date) (unknown[facility]) Result panel 25 (unknown) (no date) (unknown[facility]) Result panel 26 (unknown) (no date) (unknown[facility]) Result panel 27 (unknown) (no date) (unknown[facility]) Result panel 28 (unknown) (no date) (unknown[facility]) Result panel 29 (unknown) (no date) (unknown[facility]) Result panel 30 (unknown) (no date) (unknown[facility]) Result panel 31 (unknown) (no date) (unknown[facility]) Result panel 32 (unknown) (no date) (unknown[facility]) Result panel 33 (unknown) (no date) (unknown[facility]) Result panel 34 (unknown) (no date) (unknown[facility]) Result panel 35 (unknown) (no date) (unknown[facility]) Result panel 36 (unknown) (no date) (unknown[facility]) Result panel 37 (unknown) (no date) (unknown[facility]) Result panel 38 (unknown) (no date) (unknown[facility]) Result panel 39 (unknown) (no date) (unknown[facility]) Result panel 40 (unknown) (no date) (unknown[facility]) Result panel 41 (unknown) (no date) (unknown[facility]) Result panel 42 (unknown) (no date) (unknown[facility]) Result panel 43 (unknown) (no date) (unknown[facility]) Result panel 44 (unknown) (no date) (unknown[facility]) Result panel 45 (unknown) (no date) (unknown[facility]) Result panel 46 (unknown) (no date) (unknown[facility]) Result panel 47 (unknown) (no date) (unknown[facility]) Result panel 48 (unknown) (no date) (unknown[facility]) Result panel 49 (unknown) (no date) (unknown[facility]) Result panel 50 (unknown) (no date) (unknown[facility]) Result panel 51 (unknown) (no date) (unknown[facility]) Result panel 52 (unknown) (no date) (unknown[facility]) Result panel 53 (unknown) (no date) (unknown[facility]) Result panel 54 (unknown) (no date) (unknown[facility]) Result panel 55 (unknown) (no date) (unknown[facility]) Result panel 56 (unknown) (no date) (unknown[facility]) Result panel 57 (unknown) (no date) (unknown[facility]) Result panel 58 (unknown) (no date) (unknown[facility]) Result panel 59 (unknown) (no date) (unknown[facility]) Result panel 60 (unknown) (no date) (unknown[facility]) Result panel 61 (unknown) (no date) (unknown[facility]) Result panel 62 (unknown) (no date) (unknown[facility]) Result panel 63 (unknown) (no date) (unknown[facility]) Result panel 64 (unknown) (no date) (unknown[facility]) Result panel 65 (unknown) (no date) (unknown[facility]) Result panel 66 (unknown) (no date) (unknown[facility]) Result panel 67 (unknown) (no date) (unknown[facility]) Result panel 68 (unknown) (no date) (unknown[facility]) Result panel 69 (unknown) (no date) (unknown[facility]) Result panel 70 (unknown) (no date) (unknown[facility]) Result panel 71 (unknown) (no date) (unknown[facility]) Result panel 72 (unknown) (no date) (unknown[facility]) Result panel 73 (unknown) (no date) (unknown[facility]) Result panel 74 (unknown) (no date) (unknown[facility]) Result panel 75 (unknown) (no date) (unknown[facility]) Result panel 76 (unknown) (no date) (unknown[facility]) Result panel 77 (unknown) (no date) (unknown[facility]) Result panel 78 (unknown) (no date) (unknown[facility]) Result panel 79 (unknown) (no date) (unknown[facility]) Result panel 80 (unknown) (no date) (unknown[facility]) Result panel 81 (unknown) (no date) (unknown[facility]) Result panel 82 (unknown) (no date) (unknown[facility]) Result panel 83 (unknown) (no date) (unknown[facility]) Result panel 84 (unknown) (no (unknown) (unknown) (no value) (units (unk nown) date) unknown) (unknown) (no (unknown) (unknown) [id number] (units (unkno wn) date) unknown) (unknown) (no (unknown) (unknown) 10/22/22 (units (unkno wn) date) unknown) (unknown) (no (unknown) (unknown) [address] [place] [address] (units (unknown) date) unknown) (unknown) (no (unknown) (unknown) Accession (units (unkn own) date) Number: unknown) [id number] (unknown) (no (unknown) (unknown) After the (units (unkn own) date) administration of unknown) intravenous contrast, 2.5 mm axial sections (unknown) (no (unknown) (unknown) Age/Sex: 21 / M (units (unknown) date) Date of Service: unknown) (unknown) (no (unknown) (unknown) DEBBIE Martinez (units ( unknown) date) [id number] unknown) (unknown) (no (unknown) (unknown) Approved by: (units (u nknown) date) da Ballesteros M.D. on 10/22/2022 at 20:04 (unknown) (no (unknown) (unknown) Bones: Facial (units ( unknown) date) bones appear unknown) intact, without fractures, erosions, or (unknown) (no (unknown) (unknown) COMPARISON: (units (un known) date) None. unknown) (unknown) (no (unknown) (unknown) CT Scan Report (units (unknown) date) unknown) (unknown) (no (unknown) (unknown) : 2000 (units (unknown) date) Acct:[id number] unknown) (unknown) (no (unknown) (unknown) FINDINGS: (units (unkn own) date) unknown) (unknown) (no (unknown) (unknown) IMPRESSION: (units (un known) date) Nonspecific soft unknown) tissue edema in the right periorbital region. No (unknown) (no (unknown) (unknown) INDICATIONS: ? (units (unknown) date) donell orbital unknown) edema/ cellulitis, (unknown) (no (unknown) (unknown) Image quality: (units (unknown) date) Excellent. unknown) (unknown) (no (unknown) (unknown) [facility] (units (unknown) date) unknown) (unknown) (no (unknown) (unknown) Loc: ED (units (unkno wn) date) unknown) (unknown) (no (unknown) (unknown) Ordering (units (unkno wn) date) Provider: unknown) Cricket Carbajal MD (unknown) (no (unknown) (unknown) PROCEDURE: CT (units ( unknown) date) FACIAL BONES W unknown) CON (unknown) (no (unknown) (unknown) Patient: (units (unkno wn) date) Rodolfo Ackerman unknown) MR#: [id number] (unknown) (no (unknown) (unknown) Postsurgical (units (u nknown) date) changes in the unknown) cervical spine are partially imaged. Dental (unknown) (no (unknown) (unknown) Procedure: CT (units ( unknown) date) facial bones w unknown) con (unknown) (no (unknown) (unknown) Signed (units (unkno wn) date) unknown) (unknown) (no (unknown) (unknown) Sinuses: (units (unkno wn) date) Paranasal sinuses unknown) are aerated without fluid levels, mucosal (unknown) (no (unknown) (unknown) Soft tissues: (units ( unknown) date) Nonspecific soft unknown) tissue edema is seen in the subcutaneous (unknown) (no (unknown) (unknown) TECHNIQUE: (units (unk nown) date) unknown) (unknown) (no (unknown) (unknown) Vascular: (units (unkn own) date) Visualized unknown) vascular structures appear patent throughout. Bony (unknown) (no (unknown) (unknown) Visualized (units (unk nown) date) portions of the unknown) skull base and auditory canals also appear normal. (unknown) (no (unknown) (unknown) acquired from (units ( unknown) date) the unknown) (unknown) (no (unknown) (unknown) collection or (units ( unknown) date) abscess. No unknown) enlarged lymph nodes. (unknown) (no (unknown) (unknown) destruction. (units (u nknown) date) unknown) (unknown) (no (unknown) (unknown) disease is (units (unk nown) date) unknown) (unknown) (no (unknown) (unknown) fluid (units (unkno wn) date) unknown) (unknown) (no (unknown) (unknown) foramina and (units (u nknown) date) canals appear unknown) normal. (unknown) (no (unknown) (unknown) intraorbital (units (u nknown) date) edema. No focal unknown) fluid collection or abscess. (unknown) (no (unknown) (unknown) kV according to (units (unknown) date) patient size. unknown) (unknown) (no (unknown) (unknown) mA and/or (units (unkn own) date) unknown) (unknown) (no (unknown) (unknown) mid-neck to the (units (unknown) date) frontal sinuses, unknown) with coronal and sagittal reformats. For (unknown) (no (unknown) (unknown) mucoceles. (units (unk nown) date) Mastoid air cells unknown) are aerated. (unknown) (no (unknown) (unknown) noted. (units (unkno wn) date) unknown) (unknown) (no (unknown) (unknown) radiation dose (units (unknown) date) unknown) (unknown) (no (unknown) (unknown) reduction, the (units (unknown) date) following was unknown) used: automated exposure control, adjustment of (unknown) (no (unknown) (unknown) right face just (units (unknown) date) inferior to the unknown) orbit. No intraorbital edema is seen. No (unknown) (no (unknown) (unknown) thickening, or (units (unknown) date) unknown) (unknown) (no (unknown) (unknown) tissues at the (units (unknown) date) unknown) (unknown) (no (unknown) (unknown) vascular (units (unkno wn) date) unknown) Result panel 85 (unknown) (no date) (unknown) (unknown) 0 /ul (unkn own) (unknown) (no date) (unknown) (unknown) 0 /ul (unkn own) (unknown) (no date) (unknown) (unknown) 0.1 % (unkn own) (unknown) (no date) (unknown) (unknown) 0.3 % (unkn own) (unknown) (no date) (unknown) (unknown) 11.2 % (unkn own) (unknown) (no date) (unknown) (unknown) 11.2 x10 3/ul (unkn own) (unknown) (no date) (unknown) (unknown) 13.1 % (unkn own) (unknown) (no date) (unknown) (unknown) 13.7 g/dl (unkn own) (unknown) (no date) (unknown) (unknown) 1300 /ul (unkn own) (unknown) (no date) (unknown) (unknown) 246 x10 3/ul (unkn own) (unknown) (no date) (unknown) (unknown) 30.1 pg (unkn own) (unknown) (no date) (unknown) (unknown) 34.6 % (unkn own) (unknown) (no date) (unknown) (unknown) 39.7 % (unkn own) (unknown) (no date) (unknown) (unknown) 4.56 x10 6/ul (unkn own) (unknown) (no date) (unknown) (unknown) 7.2 % (unkn own) (unknown) (no date) (unknown) (unknown) 800 /ul (unkn own) (unknown) (no date) (unknown) (unknown) 81.2 % (unkn own) (unknown) (no date) (unknown) (unknown) 87.1 fl (unkn own) (unknown) (no date) (unknown) (unknown) 9100 /ul (unkn own) Result panel 86 (unknown) (no date) (unknown) (unknown) > 60 ml/min (unkn own) (unknown) (no date) (unknown) (unknown) > 60 ml/min (unkn own) (unknown) (no date) (unknown) (unknown) 0.55 mg/dl (unkn own) (unknown) (no date) (unknown) (unknown) 0.7 mg/dl (unkn own) (unknown) (no date) (unknown) (unknown) 1.3 (units unknown) (unknown) (unknown) (no date) (unknown) (unknown) 1.4 (units unknown) (unknown) (unknown) (no date) (unknown) (unknown) 104 u/l (unkn own) (unknown) (no date) (unknown) (unknown) 12 mg/dl (unkn own) (unknown) (no date) (unknown) (unknown) 133 mmol/l (unkn own) (unknown) (no date) (unknown) (unknown) 16.3 seconds (unkn own) (unknown) (no date) (unknown) (unknown) 169 mg/dl (unkn own) (unknown) (no date) (unknown) (unknown) 169 mg/dl (unkn own) (unknown) (no date) (unknown) (unknown) 2.8 mmol/l (unkn own) (unknown) (no date) (unknown) (unknown) 21.8 (units unknown) (unknown) (unknown) (no date) (unknown) (unknown) 22 iu/l (unkn own) (unknown) (no date) (unknown) (unknown) 26 mmol/l (unkn own) (unknown) (no date) (unknown) (unknown) 27 seconds (unkn own) (unknown) (no date) (unknown) (unknown) 27 seconds (unkn own) (unknown) (no date) (unknown) (unknown) 3.3 g/dl (unkn own) (unknown) (no date) (unknown) (unknown) 3.5 mmol/l (unkn own) (unknown) (no date) (unknown) (unknown) 32 iu/l (unkn own) (unknown) (no date) (unknown) (unknown) 4.3 g/dl (unkn own) (unknown) (no date) (unknown) (unknown) 7.6 g/dl (unkn own) (unknown) (no date) (unknown) (unknown) 77 u/l (unkn own) (unknown) (no date) (unknown) (unknown) 9.2 mg/dl (unkn own) (unknown) (no date) (unknown) (unknown) 95 mmol/l (unkn own) Result panel 87 (unknown) (no date) (unknown) (unknown) > 60 ml/min (unkn own) (unknown) (no date) (unknown) (unknown) > 60 ml/min (unkn own) (unknown) (no date) (unknown) (unknown) 0.13 ng/ml (unkn own) (unknown) (no date) (unknown) (unknown) 0.13 ng/ml (unkn own) (unknown) (no date) (unknown) (unknown) 0.55 mg/dl (unkn own) (unknown) (no date) (unknown) (unknown) 0.7 mg/dl (unkn own) (unknown) (no date) (unknown) (unknown) 1.3 (units unknown) (unknown) (unknown) (no date) (unknown) (unknown) 104 u/l (unkn own) (unknown) (no date) (unknown) (unknown) 12 mg/dl (unkn own) (unknown) (no date) (unknown) (unknown) 133 mmol/l (unkn own) (unknown) (no date) (unknown) (unknown) 169 mg/dl (unkn own) (unknown) (no date) (unknown) (unknown) 169 mg/dl (unkn own) (unknown) (no date) (unknown) (unknown) 21.8 (units unknown) (unknown) (unknown) (no date) (unknown) (unknown) 22 iu/l (unkn own) (unknown) (no date) (unknown) (unknown) 26 mmol/l (unkn own) (unknown) (no date) (unknown) (unknown) 3.3 g/dl (unkn own) (unknown) (no date) (unknown) (unknown) 3.5 mmol/l (unkn own) (unknown) (no date) (unknown) (unknown) 32 iu/l (unkn own) (unknown) (no date) (unknown) (unknown) 4.3 g/dl (unkn own) (unknown) (no date) (unknown) (unknown) 7.6 g/dl (unkn own) (unknown) (no date) (unknown) (unknown) 77 u/l (unkn own) (unknown) (no date) (unknown) (unknown) 9.2 mg/dl (unkn own) (unknown) (no date) (unknown) (unknown) 95 mmol/l (unkn own) Result panel 88 (unknown) (no (unknown) (unknown) (no value) (units (unk nown) date) unknown) (unknown) (no (unknown) (unknown) [id number] (units (unkno wn) date) unknown) (unknown) (no (unknown) (unknown) 10 mg PO BID Qty: (units (unknown) date) 30 0RF unknown) (unknown) (no (unknown) (unknown) 10/22/22 10/22/22 (units (unknown) date) 10/22/22 unknown) Range/Units (unknown) (no (unknown) (unknown) 10/22/22 17:00 (units (unknown) date) unknown) (unknown) (no (unknown) (unknown) 10/22/22 17:23 (units (unknown) date) unknown) (unknown) (no (unknown) (unknown) 10/22/22 19:16 (units (unknown) date) unknown) (unknown) (no (unknown) (unknown) 10/22/22 (units (unkno wn) date) Range/Units unknown) (unknown) (no (unknown) (unknown) 10/22/22 (units (unkno wn) date) unknown) (unknown) (no (unknown) (unknown) 16:46 (units (unkno wn) date) unknown) (unknown) (no (unknown) (unknown) 17:00 17:00 17:00 (units (unknown) date) unknown) (unknown) (no (unknown) (unknown) 17:00 (units (unkno wn) date) unknown) (unknown) (no (unknown) (unknown) 20 mg PO DAILY (units (unknown) date) Qty: 30 0RF unknown) (unknown) (no (unknown) (unknown) 8 point review of (units (unknown) date) systems is unknown) negative except for those stated above and HPI (unknown) (no (unknown) (unknown) ABDOMEN: Soft, (units (unknown) date) nontender. unknown) Normoactive bowel sounds all 4 quadrants. No (unknown) (no (unknown) (unknown) ALT (<50) IU/L (units (unknown) date) unknown) (unknown) (no (unknown) (unknown) ALT 22 (<50) IU/L (units (unknown) date) unknown) (unknown) (no (unknown) (unknown) APTT (26-36) (units (u nknown) date) SECONDS unknown) (unknown) (no (unknown) (unknown) APTT 27 (26-36) (units (unknown) date) SECONDS unknown) (unknown) (no (unknown) (unknown) AST (17-59) IU/L (units (unknown) date) unknown) (unknown) (no (unknown) (unknown) AST 32 (17-59) (units (unknown) date) IU/L unknown) (unknown) (no (unknown) (unknown) Age/Sex: 21 / M (units (unknown) date) unknown) (unknown) (no (unknown) (unknown) Albumin (3.5-5.0) (units (unknown) date) g/dL unknown) (unknown) (no (unknown) (unknown) Albumin 4.3 (units (un known) date) (3.5-5.0) g/dL unknown) (unknown) (no (unknown) (unknown) Albumin/Globulin (units (unknown) date) Ratio (1.0-2.8) unknown) (unknown) (no (unknown) (unknown) Albumin/Globulin (units (unknown) date) Ratio 1.3 unknown) (1.0-2.8) (unknown) (no (unknown) (unknown) Alkaline (units (unkno wn) date) Phosphatase unknown) (38-126) U/L (unknown) (no (unknown) (unknown) Alkaline (units (unkno wn) date) Phosphatase 104 unknown) (38-126) U/L (unknown) (no (unknown) (unknown) Allergies (units (unkn own) date) unknown) (unknown) (no (unknown) (unknown) Allergy/AdvReac (units (unknown) date) Type Severity unknown) Reaction Status Date / Time (unknown) (no (unknown) (unknown) Ampicillin (units (unk nown) date) Sodium/Sulbactam unknown) (Sodium 3 gm/ Sodium Chloride) 100 mls @ 200 mls/hr (unknown) (no (unknown) (unknown) Anxiety (units (unkno wn) date) unknown) (unknown) (no (unknown) (unknown) At this time (units (u nknown) date) differential unknown) includes orbital cellulitis although I think unlikely (unknown) (no (unknown) (unknown) BUN (9-20) mg/dL (units (unknown) date) unknown) (unknown) (no (unknown) (unknown) BUN 12 (9-20) (units ( unknown) date) mg/dL unknown) (unknown) (no (unknown) (unknown) BUN/Creatinine (units (unknown) date) Ratio (6-22) unknown) (unknown) (no (unknown) (unknown) BUN/Creatinine (units (unknown) date) Ratio 21.8 (6-22) unknown) (unknown) (no (unknown) (unknown) Baso # (Auto) (units ( unknown) date) (0-100) /uL unknown) (unknown) (no (unknown) (unknown) Baso # (Auto) 0 (units (unknown) date) (0-100) /uL unknown) (unknown) (no (unknown) (unknown) Baso % (Auto) (units ( unknown) date) (0-2) % unknown) (unknown) (no (unknown) (unknown) Baso % (Auto) 0.3 (units (unknown) date) (0-2) % unknown) (unknown) (no (unknown) (unknown) Blood Culture (units ( unknown) date) Stat unknown) (unknown) (no (unknown) (unknown) Blood Pressure (units (unknown) date) 130/59 L 10/22/22 unknown) 16:46 (unknown) (no (unknown) (unknown) Blood Pressure (units (unknown) date) 130/59 L unknown) (unknown) (no (unknown) (unknown) CARDIOVASCULAR: (units (unknown) date) Denies chest pain, unknown) palpitations (unknown) (no (unknown) (unknown) CARDIOVASCULAR: (units (unknown) date) Regular rate and unknown) rhythm without murmurs, rubs or gallops. (unknown) (no (unknown) (unknown) CT facial bones w (units (unknown) date) con Stat unknown) (unknown) (no (unknown) (unknown) Calcium (units (unkno wn) date) (8.4-10.2) mg/dL unknown) (unknown) (no (unknown) (unknown) Calcium 9.2 (units (un known) date) (8.4-10.2) mg/dL unknown) (unknown) (no (unknown) (unknown) Carbon Dioxide (units (unknown) date) (22-32) mmol/L unknown) (unknown) (no (unknown) (unknown) Carbon Dioxide 26 (units (unknown) date) (22-32) mmol/L unknown) (unknown) (no (unknown) (unknown) Chief complaint: (units (unknown) date) Skin/Abscess/Forei unknown) gn Body (unknown) (no (unknown) (unknown) Chloride (98-107) (units (unknown) date) mmol/L unknown) (unknown) (no (unknown) (unknown) Chloride 95 L (units ( unknown) date) (98-107) mmol/L unknown) (unknown) (no (unknown) (unknown) Complete Blood (units (unknown) date) Count AUTO DIFF unknown) Stat (unknown) (no (unknown) (unknown) Comprehensive (units ( unknown) date) Metabolic Panel unknown) Stat (unknown) (no (unknown) (unknown) Course (units (unkno wn) date) unknown) (unknown) (no (unknown) (unknown) Creatinine (units (unk nown) date) (0.66-1.25) mg/dL unknown) (unknown) (no (unknown) (unknown) Creatinine 0.55 L (units (unknown) date) (0.66-1.25) mg/dL unknown) (unknown) (no (unknown) (unknown) : 2000 (units (unknown) date) Acct:[id number] unknown) (unknown) (no (unknown) (unknown) Date of Service: (units (unknown) date) 10/22/22 unknown) (unknown) (no (unknown) (unknown) Departure (units (unkn own) date) unknown) (unknown) (no (unknown) (unknown) Depression (units (unk nown) date) unknown) (unknown) (no (unknown) (unknown) Discharge Plan (units (unknown) date) unknown) (unknown) (no (unknown) (unknown) Discontinued (units (u nknown) date) Medications unknown) (unknown) (no (unknown) (unknown) ED Orders (units (unkn own) date) unknown) (unknown) (no (unknown) (unknown) ER Physician: (units ( unknown) date) Silvia Langston unknown) D.O. (unknown) (no (unknown) (unknown) EXTREMITIES: (units (u nknown) date) Normal range of unknown) motion, no clubbing or edema. Neurovascularly (unknown) (no (unknown) (unknown) Emergency Report (units (unknown) date) unknown) (unknown) (no (unknown) (unknown) Eos # (Auto) (units (u nknown) date) (0-450) /uL unknown) (unknown) (no (unknown) (unknown) Eos # (Auto) 0 (units (unknown) date) (0-450) /uL unknown) (unknown) (no (unknown) (unknown) Eos % (Auto) (units (u nknown) date) (2-4) % unknown) (unknown) (no (unknown) (unknown) Eos % (Auto) 0.1 (units (unknown) date) L (2-4) % unknown) (unknown) (no (unknown) (unknown) Estimated GFR > (units (unknown) date) 60 (>60) mL/min unknown) (unknown) (no (unknown) (unknown) Estimated GFR (units ( unknown) date) (>60) mL/min unknown) (unknown) (no (unknown) (unknown) Exam (units (unkno wn) date) unknown) (unknown) (no (unknown) (unknown) GASTROINTESTINAL: (units (unknown) date) Denies nausea, unknown) vomiting (unknown) (no (unknown) (unknown) GENERAL: Alert (units (unknown) date) thin 21-year-old unknown) male (unknown) (no (unknown) (unknown) GENERAL: Denies (units (unknown) date) chills,fever unknown) (unknown) (no (unknown) (unknown) General (units (unkno wn) date) unknown) (unknown) (no (unknown) (unknown) Globulin (units (unkno wn) date) (1.7-4.1) g/dL unknown) (unknown) (no (unknown) (unknown) Globulin 3.3 (units (u nknown) date) (1.7-4.1) g/dL unknown) (unknown) (no (unknown) (unknown) Glucose (70-100) (units (unknown) date) mg/dL unknown) (unknown) (no (unknown) (unknown) Glucose 169 H (units ( unknown) date) (70-100) mg/dL unknown) (unknown) (no (unknown) (unknown) HEENT: Denies (units ( unknown) date) throat pain unknown) (unknown) (no (unknown) (unknown) HEENT: Head (units (un known) date) atraumatic,EOMI, unknown) pupils reactive, face symmetric, moist mucous (unknown) (no (unknown) (unknown) HPI - (units (unkno wn) date) Skin/Abscess/Forei unknown) gn Bdy (unknown) (no (unknown) (unknown) HPI narrative: (units (unknown) date) unknown) (unknown) (no (unknown) (unknown) Hct (41-53) % (units ( unknown) date) unknown) (unknown) (no (unknown) (unknown) Hct 39.7 L (units (unk nown) date) (41-53) % unknown) (unknown) (no (unknown) (unknown) He does not use (units (unknown) date) IV drugs. He has unknown) no difficulty breathing or speaking. Never (unknown) (no (unknown) (unknown) He is given IV (units (unknown) date) fluids antibiotics unknown) in the ED. CT confirms probable cellulitis. (unknown) (no (unknown) (unknown) Hgb (13.5-17.5) (units (unknown) date) g/dL unknown) (unknown) (no (unknown) (unknown) Hgb 13.7 (units (unkno wn) date) (13.5-17.5) g/dL unknown) (unknown) (no (unknown) (unknown) History of (units (unk nown) date) Present Illness unknown) (unknown) (no (unknown) (unknown) INR (0.9-1.3) (units ( unknown) date) unknown) (unknown) (no (unknown) (unknown) INR 1.4 H (units (unkn own) date) (0.9-1.3) unknown) (unknown) (no (unknown) (unknown) IV NOW ONE (units (unk nown) date) unknown) (unknown) (no (unknown) (unknown) Initial Vital (units ( unknown) date) Signs unknown) (unknown) (no (unknown) (unknown) Initial Vital (units ( unknown) date) Signs: unknown) (unknown) (no (unknown) (unknown) [facility] (units (unknown) date) [address] unknown) [place] [address] (unknown) (no (unknown) (unknown) Lab Data (units (unkno wn) date) unknown) (unknown) (no (unknown) (unknown) Lab Results (units (un known) date) unknown) (unknown) (no (unknown) (unknown) Labs: (units (unkno wn) date) unknown) (unknown) (no (unknown) (unknown) Lactate (0.7-2.1) (units (unknown) date) mmol/L unknown) (unknown) (no (unknown) (unknown) Lactate (Lactic (units (unknown) date) Acid) Stat unknown) (unknown) (no (unknown) (unknown) Lactate 2.8 H (units ( unknown) date) (0.7-2.1) mmol/L unknown) (unknown) (no (unknown) (unknown) Last Admin: (units (un known) date) 10/22/22 19:17 unknown) Dose: 1,000 mls/hr (unknown) (no (unknown) (unknown) Limitations: no (units (unknown) date) limitations unknown) (unknown) (no (unknown) (unknown) Lipase (23-300) (units (unknown) date) U/L unknown) (unknown) (no (unknown) (unknown) Lipase 77 (units (unkn own) date) (23-300) U/L unknown) (unknown) (no (unknown) (unknown) Lipase Stat (units (un known) date) unknown) (unknown) (no (unknown) (unknown) Lymph # (Auto) (units (unknown) date) (8807-9791) /uL unknown) (unknown) (no (unknown) (unknown) Lymph # (Auto) (units (unknown) date) 1300 ([id number]) unknown) /uL (unknown) (no (unknown) (unknown) Lymph % (Auto) (units (unknown) date) (25-40) % unknown) (unknown) (no (unknown) (unknown) Lymph % (Auto) (units (unknown) date) 11.2 L (25-40) % unknown) (unknown) (no (unknown) (unknown) MCH (26-34) PG (units (unknown) date) unknown) (unknown) (no (unknown) (unknown) MCH 30.1 (26-34) (units (unknown) date) PG unknown) (unknown) (no (unknown) (unknown) MCHC (30-36) % (units (unknown) date) unknown) (unknown) (no (unknown) (unknown) MCHC 34.6 (30-36) (units (unknown) date) % unknown) (unknown) (no (unknown) (unknown) MCV (80-100) fL (units (unknown) date) unknown) (unknown) (no (unknown) (unknown) MCV 87.1 (80-100) (units (unknown) date) fL unknown) (unknown) (no (unknown) (unknown) MDM - (units (unkno wn) date) Skin/Abscess/Forei unknown) gn Bdy (unknown) (no (unknown) (unknown) MDM Narrative (units ( unknown) date) unknown) (unknown) (no (unknown) (unknown) MUSCULOSKELETAL: (units (unknown) date) Denies extremity unknown) pain, injury (unknown) (no (unknown) (unknown) Medical History (units (unknown) date) (Reviewed 10/22/22 unknown) @ 19:27 by Silvia Langston DO) (unknown) (no (unknown) (unknown) Medical decision (units (unknown) date) making narrative: unknown) (unknown) (no (unknown) (unknown) Medication (units (unk nown) date) Instructions unknown) Recorded (unknown) (no (unknown) (unknown) Mode of arrival: (units (unknown) date) Ambulatory unknown) (unknown) (no (unknown) (unknown) [place] # (Auto) (units ( unknown) date) (0-900) /uL unknown) (unknown) (no (unknown) (unknown) [place] # (Auto) 800 (units (unknown) date) (0-900) /uL unknown) (unknown) (no (unknown) (unknown) [place] % (Auto) (units ( unknown) date) (3-14) % unknown) (unknown) (no (unknown) (unknown) [place] % (Auto) 7.2 (units (unknown) date) (3-14) % unknown) (unknown) (no (unknown) (unknown) NEUROLOGIC: (units (un known) date) Denies weakness, unknown) dizziness, headache, numbness (unknown) (no (unknown) (unknown) NEUROLOGICAL: (units ( unknown) date) Alert and oriented unknown) x4 (unknown) (no (unknown) (unknown) Narrative: (units (unk nown) date) unknown) (unknown) (no (unknown) (unknown) Neut # (Auto) (units ( unknown) date) (7938-0654) /uL unknown) (unknown) (no (unknown) (unknown) Neut # (Auto) (units ( unknown) date) 9100 H (1640-5393) unknown) /uL (unknown) (no (unknown) (unknown) Neut % (Auto) (units ( unknown) date) (50-75) % unknown) (unknown) (no (unknown) (unknown) Neut % (Auto) (units ( unknown) date) 81.2 H (50-75) % unknown) (unknown) (no (unknown) (unknown) No Action (units (unkn own) date) unknown) (unknown) (no (unknown) (unknown) No Known Drug (units ( unknown) date) Allergies Allergy unknown) Verified 04/07/21 19:37 (unknown) (no (unknown) (unknown) Ordered: (units (unkno wn) date) unknown) (unknown) (no (unknown) (unknown) Orders (units (unkno wn) date) unknown) (unknown) (no (unknown) (unknown) Oxygen Delivery (units (unknown) date) Method 10/22/22 unknown) 16:46 (unknown) (no (unknown) (unknown) Oxygen Delivery (units (unknown) date) Method Room Air unknown) (unknown) (no (unknown) (unknown) PT (10.1-12.7) (units (unknown) date) SECONDS unknown) (unknown) (no (unknown) (unknown) PT 16.3 H (units (unkn own) date) (10.1-12.7) unknown) SECONDS (unknown) (no (unknown) (unknown) Palpitations (units (u nknown) date) unknown) (unknown) (no (unknown) (unknown) Partial (units (unkno wn) date) Thromboplastin unknown) Time Stat (unknown) (no (unknown) (unknown) Patient History (units (unknown) date) unknown) (unknown) (no (unknown) (unknown) Patient has a (units ( unknown) date) mildly elevated unknown) lactate of 2.8 mildly cardiac of 102 of (unknown) (no (unknown) (unknown) Patient is a (units (u nknown) date) 21-year-old male unknown) history of ethanol abuse she smokes regularly (unknown) (no (unknown) (unknown) Patient: (units (unkno wn) date) Rodolfo Ackerman unknown) MR#: [id number] (unknown) (no (unknown) (unknown) Plt Count (units (unkn own) date) (150-400) X103/uL unknown) (unknown) (no (unknown) (unknown) Plt Count 246 (units ( unknown) date) (150-400) X103/uL unknown) (unknown) (no (unknown) (unknown) Potassium (units (unkn own) date) (3.4-5.1) mmol/L unknown) (unknown) (no (unknown) (unknown) Potassium 3.5 (units ( unknown) date) (3.4-5.1) mmol/L unknown) (unknown) (no (unknown) (unknown) Prescriptions: (units (unknown) date) unknown) (unknown) (no (unknown) (unknown) Previous Rx's (units ( unknown) date) unknown) (unknown) (no (unknown) (unknown) Procalcitonin (units ( unknown) date) (<0.5) ng/mL unknown) (unknown) (no (unknown) (unknown) Procalcitonin (units ( unknown) date) 0.13 (<0.5) ng/mL unknown) (unknown) (no (unknown) (unknown) Procalcitonin (units ( unknown) date) Stat unknown) (unknown) (no (unknown) (unknown) Prothrombin Time (units (unknown) date) INR Stat unknown) (unknown) (no (unknown) (unknown) Pulse Oximetry 97 (units (unknown) date) 10/22/22 16:46 unknown) (unknown) (no (unknown) (unknown) Pulse Oximetry 97 (units (unknown) date) unknown) (unknown) (no (unknown) (unknown) Pulse Rate 102 H (units (unknown) date) 10/22/22 16:46 unknown) (unknown) (no (unknown) (unknown) Pulse Rate 102 H (units (unknown) date) unknown) (unknown) (no (unknown) (unknown) RBC (4.5-5.9) (units ( unknown) date) X106/uL unknown) (unknown) (no (unknown) (unknown) RBC 4.56 (units (unkno wn) date) (4.5-5.9) X106/uL unknown) (unknown) (no (unknown) (unknown) RDW (11.6-14.8) % (units (unknown) date) unknown) (unknown) (no (unknown) (unknown) RDW 13.1 (units (unkno wn) date) (11.6-14.8) % unknown) (unknown) (no (unknown) (unknown) RESPIRATORY: (units (u nknown) date) Breath sounds unknown) equal bilaterally, no wheezes rales or rhonchi. (unknown) (no (unknown) (unknown) RESPIRATORY: (units (u nknown) date) Denies dyspnea, unknown) cough, wheezing (unknown) (no (unknown) (unknown) Related Data (units (u nknown) date) unknown) (unknown) (no (unknown) (unknown) Respiratory Rate (units (unknown) date) 18 10/22/22 16:46 unknown) (unknown) (no (unknown) (unknown) Respiratory Rate (units (unknown) date) 18 unknown) (unknown) (no (unknown) (unknown) Result diagrams: (units (unknown) date) unknown) (unknown) (no (unknown) (unknown) Review of Systems (units (unknown) date) unknown) (unknown) (no (unknown) (unknown) SKIN: Facial (units (u nknown) date) erythema over unknown) bridge of nose mostly on the right side inferior (unknown) (no (unknown) (unknown) SKIN: See HPI (units ( unknown) date) unknown) (unknown) (no (unknown) (unknown) Signed By: (units (unk nown) date) unknown) (unknown) (no (unknown) (unknown) Sinus tachycardia (units (unknown) date) unknown) (unknown) (no (unknown) (unknown) Smoking Status: (units (unknown) date) Current every day unknown) smoker (unknown) (no (unknown) (unknown) Social History (units (unknown) date) (Reviewed 10/22/22 unknown) @ 19:27 by Silvia Langston DO) (unknown) (no (unknown) (unknown) Sodium (137-145) (units (unknown) date) mmol/L unknown) (unknown) (no (unknown) (unknown) Sodium 133 L (units (u nknown) date) (137-145) mmol/L unknown) (unknown) (no (unknown) (unknown) Sodium Chloride (units (unknown) date) (Normal Saline unknown) 0.9%) 1,000 mls @ 1,000 mls/hr IV BOLUS ONE (unknown) (no (unknown) (unknown) Source: patient (units (unknown) date) unknown) (unknown) (no (unknown) (unknown) Stated complaint: (units (unknown) date) Facial swelling unknown) (unknown) (no (unknown) (unknown) Stop: 10/22/22 (units (unknown) date) 18:21 unknown) (unknown) (no (unknown) (unknown) Stop: 10/22/22 (units (unknown) date) 19:21 unknown) (unknown) (no (unknown) (unknown) Stop: 10/22/22 (units (unknown) date) 20:19 unknown) (unknown) (no (unknown) (unknown) Stop: 10/22/22 (units (unknown) date) 20:20 unknown) (unknown) (no (unknown) (unknown) Substance Use (units ( unknown) date) Type: marijuana, unknown) heroin, methamphetamine and other (unknown) (no (unknown) (unknown) Temperature 98.7 (units (unknown) date) F 10/22/22 16:46 unknown) (unknown) (no (unknown) (unknown) Temperature 98.7 (units (unknown) date) F unknown) (unknown) (no (unknown) (unknown) Time Seen by (units (u nknown) date) Provider: 10/22/22 unknown) 19:10 (unknown) (no (unknown) (unknown) Total Bilirubin (units (unknown) date) (0.2-1.3) mg/dL unknown) (unknown) (no (unknown) (unknown) Total Bilirubin (units (unknown) date) 0.7 (0.2-1.3) unknown) mg/dL (unknown) (no (unknown) (unknown) Total Protein (units ( unknown) date) (6.3-8.2) g/dL unknown) (unknown) (no (unknown) (unknown) Total Protein 7.6 (units (unknown) date) (6.3-8.2) g/dL unknown) (unknown) (no (unknown) (unknown) Vancomycin HCl (units (unknown) date) (Vancomycin) 750 unknown) mg in 150 mls @ 150 mls/hr IV NOW ONE (unknown) (no (unknown) (unknown) Vital Signs - 8 (units (unknown) date) hr unknown) (unknown) (no (unknown) (unknown) Vital Signs (units (un known) date) unknown) (unknown) (no (unknown) (unknown) Vital signs: (units (u nknown) date) unknown) (unknown) (no (unknown) (unknown) WBC (4.5-11.0) (units (unknown) date) X103/uL unknown) (unknown) (no (unknown) (unknown) WBC 11.2 H (units (unk nown) date) (4.5-11.0) X103/uL unknown) (unknown) (no (unknown) (unknown) [Embedded Image (units (unknown) date) Not Available] unknown) (unknown) (no (unknown) (unknown) alcohol intake (units (unknown) date) frequency: 0-2 unknown) drinks per day (unknown) (no (unknown) (unknown) at this time, (units ( unknown) date) sinusitis, unknown) (unknown) (no (unknown) (unknown) difficulty seeing (units (unknown) date) feels like his unknown) nose is congested. He denies any dental pain. (unknown) (no (unknown) (unknown) fluoxetine 20 mg (units (unknown) date) capsule 20 mg PO unknown) DAILY #30 caps 04/07/21 (unknown) (no (unknown) (unknown) fluoxetine 20 mg (units (unknown) date) capsule unknown) (unknown) (no (unknown) (unknown) guarding or (units (un known) date) rebound. unknown) (unknown) (no (unknown) (unknown) happened before. (units (unknown) date) unknown) (unknown) (no (unknown) (unknown) intact (units (unkno wn) date) unknown) (unknown) (no (unknown) (unknown) leukocytosis of (units (unknown) date) 11.2 an obvious unknown) cellulitis on his face. No airway compromise. (unknown) (no (unknown) (unknown) membranes (units (unkn own) date) unknown) (unknown) (no (unknown) (unknown) nose beginning to (units (unknown) date) go up into the unknown) orbital area and forehead. No eye pain no (unknown) (no (unknown) (unknown) orbital area does (units (unknown) date) not go around full unknown) periorbital region (unknown) (no (unknown) (unknown) presenting today (units (unknown) date) with facial unknown) redness and swelling. Mostly over the bridge of (unknown) (no (unknown) (unknown) propranolol 10 mg (units (unknown) date) tablet 10 mg PO unknown) BID #30 tabs 04/07/21 (unknown) (no (unknown) (unknown) propranolol 10 mg (units (unknown) date) tablet unknown) (unknown) (no (unknown) (unknown) tobacco type: (units ( unknown) date) cigarettes unknown) Result panel 89 (unknown) (no (unknown) (unknown) (no value) (units (unk nown) date) unknown) (unknown) (no (unknown) (unknown) *Continue to take (units (unknown) date) medications as unknown) directed (unknown) (no (unknown) (unknown) *Follow up with (units (unknown) date) your primary care unknown) provider in 2-3 days or call [phone] (unknown) (no (unknown) (unknown) *Return to ER if (units (unknown) date) you should have unknown) [such as] [or] any new, worsening or concerning (unknown) (no (unknown) (unknown) *What to do: (units (u nknown) date) unknown) (unknown) (no (unknown) (unknown) *You have been (units (unknown) date) diagnosed with unknown) cellulitis (unknown) (no (unknown) (unknown) [id number] (units (unkno wn) date) unknown) (unknown) (no (unknown) (unknown) 10 mg PO BID Qty: (units (unknown) date) 30 0RF unknown) (unknown) (no (unknown) (unknown) 10/22/22 10/22/22 (units (unknown) date) 10/22/22 unknown) Range/Units (unknown) (no (unknown) (unknown) 10/22/22 17:00 (units (unknown) date) unknown) (unknown) (no (unknown) (unknown) 10/22/22 17:23 (units (unknown) date) unknown) (unknown) (no (unknown) (unknown) 10/22/22 19:16 (units (unknown) date) unknown) (unknown) (no (unknown) (unknown) 10/22/22 (units (unkno wn) date) Range/Units unknown) (unknown) (no (unknown) (unknown) 10/22/22 (units (unkno wn) date) unknown) (unknown) (no (unknown) (unknown) 16:46 (units (unkno wn) date) unknown) (unknown) (no (unknown) (unknown) 17:00 17:00 17:00 (units (unknown) date) unknown) (unknown) (no (unknown) (unknown) 17:00 (units (unkno wn) date) unknown) (unknown) (no (unknown) (unknown) 20 mg PO DAILY (units (unknown) date) Qty: 30 0RF unknown) (unknown) (no (unknown) (unknown) 8 point review of (units (unknown) date) systems is unknown) negative except for those stated above and HPI (unknown) (no (unknown) (unknown) ? (units (unkno wn) date) unknown) (unknown) (no (unknown) (unknown) ABDOMEN: Soft, (units (unknown) date) nontender. unknown) Normoactive bowel sounds all 4 quadrants. No (unknown) (no (unknown) (unknown) ALT (<50) IU/L (units (unknown) date) unknown) (unknown) (no (unknown) (unknown) ALT 22 (<50) IU/L (units (unknown) date) unknown) (unknown) (no (unknown) (unknown) APTT (26-36) (units (u nknown) date) SECONDS unknown) (unknown) (no (unknown) (unknown) APTT 27 (26-36) (units (unknown) date) SECONDS unknown) (unknown) (no (unknown) (unknown) AST (17-59) IU/L (units (unknown) date) unknown) (unknown) (no (unknown) (unknown) AST 32 (17-59) (units (unknown) date) IU/L unknown) (unknown) (no (unknown) (unknown) Accession Number: (units (unknown) date) [id number] ?? unknown) (unknown) (no (unknown) (unknown) Acct:[id number] (units (unknown) date) unknown) (unknown) (no (unknown) (unknown) Activity (units (unkno wn) date) Restrictions/Addit unknown) ional Instructions: (unknown) (no (unknown) (unknown) After the (units (unkno wn) date) administration of unknown) intravenous contrast, 2.5 mm axial sections acquired (unknown) (no (unknown) (unknown) Age/Sex: 21 / M (units (unknown) date) unknown) (unknown) (no (unknown) (unknown) Albumin (3.5-5.0) (units (unknown) date) g/dL unknown) (unknown) (no (unknown) (unknown) Albumin 4.3 (units (un known) date) (3.5-5.0) g/dL unknown) (unknown) (no (unknown) (unknown) Albumin/Globulin (units (unknown) date) Ratio (1.0-2.8) unknown) (unknown) (no (unknown) (unknown) Albumin/Globulin (units (unknown) date) Ratio 1.3 unknown) (1.0-2.8) (unknown) (no (unknown) (unknown) Alkaline (units (unkno wn) date) Phosphatase unknown) (38-126) U/L (unknown) (no (unknown) (unknown) Alkaline (units (unkno wn) date) Phosphatase 104 unknown) (38-126) U/L (unknown) (no (unknown) (unknown) Allergies (units (unkn own) date) unknown) (unknown) (no (unknown) (unknown) Allergy/AdvReac (units (unknown) date) Type Severity unknown) Reaction Status Date / Time (unknown) (no (unknown) (unknown) Ampicillin (units (unk nown) date) Sodium/Sulbactam unknown) (Sodium 3 gm/ Sodium Chloride) 100 mls @ 200 mls/hr (unknown) (no (unknown) (unknown) Anxiety (units (unkno wn) date) unknown) (unknown) (no (unknown) (unknown) Approved by: (units (u nknown) date) Dylan Malik unknownAshlyn Perry on 10/22/2022 at 20:04? (unknown) (no (unknown) (unknown) At this time (units (u nknown) date) differential unknown) includes orbital cellulitis although I think unlikely (unknown) (no (unknown) (unknown) BUN (9-20) mg/dL (units (unknown) date) unknown) (unknown) (no (unknown) (unknown) BUN 12 (9-20) (units ( unknown) date) mg/dL unknown) (unknown) (no (unknown) (unknown) BUN/Creatinine (units (unknown) date) Ratio (6-22) unknown) (unknown) (no (unknown) (unknown) BUN/Creatinine (units (unknown) date) Ratio 21.8 (6-22) unknown) (unknown) (no (unknown) (unknown) Baso # (Auto) (units ( unknown) date) (0-100) /uL unknown) (unknown) (no (unknown) (unknown) Baso # (Auto) 0 (units (unknown) date) (0-100) /uL unknown) (unknown) (no (unknown) (unknown) Baso % (Auto) (units ( unknown) date) (0-2) % unknown) (unknown) (no (unknown) (unknown) Baso % (Auto) 0.3 (units (unknown) date) (0-2) % unknown) (unknown) (no (unknown) (unknown) Blood Culture (units ( unknown) date) Stat unknown) (unknown) (no (unknown) (unknown) Blood Pressure (units (unknown) date) 130/59 L 10/22/22 unknown) 16:46 (unknown) (no (unknown) (unknown) Blood Pressure (units (unknown) date) 130/59 L unknown) (unknown) (no (unknown) (unknown) Bones:? Facial (units (unknown) date) bones appear unknown) intact, without fractures, erosions, or (unknown) (no (unknown) (unknown) CARDIOVASCULAR: (units (unknown) date) Denies chest pain, unknown) palpitations (unknown) (no (unknown) (unknown) CARDIOVASCULAR: (units (unknown) date) Regular rate and unknown) rhythm without murmurs, rubs or gallops. (unknown) (no (unknown) (unknown) COMPARISON:? (units (u nknown) date) None. unknown) (unknown) (no (unknown) (unknown) CT Scan Report (units (unknown) date) unknown) (unknown) (no (unknown) (unknown) CT facial bones w (units (unknown) date) con Stat unknown) (unknown) (no (unknown) (unknown) CT facial: (units (unk nown) date) unknown) (unknown) (no (unknown) (unknown) Calcium (units (unkno wn) date) (8.4-10.2) mg/dL unknown) (unknown) (no (unknown) (unknown) Calcium 9.2 (units (un known) date) (8.4-10.2) mg/dL unknown) (unknown) (no (unknown) (unknown) Carbon Dioxide (units (unknown) date) (22-32) mmol/L unknown) (unknown) (no (unknown) (unknown) Carbon Dioxide 26 (units (unknown) date) (22-32) mmol/L unknown) (unknown) (no (unknown) (unknown) Cellulitis (units (unk nown) date) unknown) (unknown) (no (unknown) (unknown) Chief complaint: (units (unknown) date) Skin/Abscess/Forei unknown) gn Body (unknown) (no (unknown) (unknown) Chloride (98-107) (units (unknown) date) mmol/L unknown) (unknown) (no (unknown) (unknown) Chloride 95 L (units ( unknown) date) (98-107) mmol/L unknown) (unknown) (no (unknown) (unknown) Clinical (units (unkno wn) date) Impression: unknown) (unknown) (no (unknown) (unknown) Complete Blood (units (unknown) date) Count AUTO DIFF unknown) Stat (unknown) (no (unknown) (unknown) Comprehensive (units ( unknown) date) Metabolic Panel unknown) Stat (unknown) (no (unknown) (unknown) Course (units (unkno wn) date) unknown) (unknown) (no (unknown) (unknown) Creatinine (units (unk nown) date) (0.66-1.25) mg/dL unknown) (unknown) (no (unknown) (unknown) Creatinine 0.55 L (units (unknown) date) (0.66-1.25) mg/dL unknown) (unknown) (no (unknown) (unknown) : 2000 (units (unknown) date) Acct:[id number] unknown) (unknown) (no (unknown) (unknown) : 2000 (units (unknown) date) unknown) (unknown) (no (unknown) (unknown) Date of Service: (units (unknown) date) 10/22/22 unknown) (unknown) (no (unknown) (unknown) Departure (units (unkn own) date) unknown) (unknown) (no (unknown) (unknown) Depression (units (unk nown) date) unknown) (unknown) (no (unknown) (unknown) Discharge Plan (units (unknown) date) unknown) (unknown) (no (unknown) (unknown) Discontinued (units (u nknown) date) Medications unknown) (unknown) (no (unknown) (unknown) Documented By: (units (unknown) date) KLS unknown) (unknown) (no (unknown) (unknown) ED Orders (units (unkn own) date) unknown) (unknown) (no (unknown) (unknown) ER Physician: (units ( unknown) date) Silvia Langston unknown) D.O. (unknown) (no (unknown) (unknown) EXTREMITIES: (units (u nknown) date) Normal range of unknown) motion, no clubbing or edema. Neurovascularly (unknown) (no (unknown) (unknown) Emergency Report (units (unknown) date) unknown) (unknown) (no (unknown) (unknown) Eos # (Auto) (units (u nknown) date) (0-450) /uL unknown) (unknown) (no (unknown) (unknown) Eos # (Auto) 0 (units (unknown) date) (0-450) /uL unknown) (unknown) (no (unknown) (unknown) Eos % (Auto) (units (u nknown) date) (2-4) % unknown) (unknown) (no (unknown) (unknown) Eos % (Auto) 0.1 (units (unknown) date) L (2-4) % unknown) (unknown) (no (unknown) (unknown) Estimated GFR > (units (unknown) date) 60 (>60) mL/min unknown) (unknown) (no (unknown) (unknown) Estimated GFR (units ( unknown) date) (>60) mL/min unknown) (unknown) (no (unknown) (unknown) Exam (units (unkno wn) date) unknown) (unknown) (no (unknown) (unknown) FINDINGS:? (units (unk nown) date) unknown) (unknown) (no (unknown) (unknown) GASTROINTESTINAL: (units (unknown) date) Denies nausea, unknown) vomiting (unknown) (no (unknown) (unknown) GENERAL: Alert (units (unknown) date) thin 21-year-old unknown) male (unknown) (no (unknown) (unknown) GENERAL: Denies (units (unknown) date) chills,fever unknown) (unknown) (no (unknown) (unknown) General (units (unkno wn) date) unknown) (unknown) (no (unknown) (unknown) Globulin (units (unkno wn) date) (1.7-4.1) g/dL unknown) (unknown) (no (unknown) (unknown) Globulin 3.3 (units (u nknown) date) (1.7-4.1) g/dL unknown) (unknown) (no (unknown) (unknown) Glucose (70-100) (units (unknown) date) mg/dL unknown) (unknown) (no (unknown) (unknown) Glucose 169 H (units ( unknown) date) (70-100) mg/dL unknown) (unknown) (no (unknown) (unknown) HEENT: Denies (units ( unknown) date) throat pain unknown) (unknown) (no (unknown) (unknown) HEENT: Head (units (un known) date) atraumatic,EOMI, unknown) pupils reactive, face symmetric, moist mucous (unknown) (no (unknown) (unknown) HPI - (units (unkno wn) date) Skin/Abscess/Forei unknown) gn Bdy (unknown) (no (unknown) (unknown) HPI narrative: (units (unknown) date) unknown) (unknown) (no (unknown) (unknown) Hct (41-53) % (units ( unknown) date) unknown) (unknown) (no (unknown) (unknown) Hct 39.7 L (units (unk nown) date) (41-53) % unknown) (unknown) (no (unknown) (unknown) He does not use (units (unknown) date) IV drugs. He has unknown) no difficulty breathing or speaking. Never (unknown) (no (unknown) (unknown) He is given IV (units (unknown) date) fluids antibiotics unknown) in the ED. CT confirms probable cellulitis. (unknown) (no (unknown) (unknown) Hgb (13.5-17.5) (units (unknown) date) g/dL unknown) (unknown) (no (unknown) (unknown) Hgb 13.7 (units (unkno wn) date) (13.5-17.5) g/dL unknown) (unknown) (no (unknown) (unknown) History of (units (unk nown) date) Present Illness unknown) (unknown) (no (unknown) (unknown) IMPRESSION:? (units (u nknown) date) Nonspecific soft unknown) tissue edema in the right periorbital region.? No (unknown) (no (unknown) (unknown) INDICATIONS:? ? (units (unknown) date) donell orbital unknown) edema/ cellulitis, (unknown) (no (unknown) (unknown) INR (0.9-1.3) (units ( unknown) date) unknown) (unknown) (no (unknown) (unknown) INR 1.4 H (units (unkn own) date) (0.9-1.3) unknown) (unknown) (no (unknown) (unknown) IV NOW ONE (units (unk nown) date) unknown) (unknown) (no (unknown) (unknown) Image quality:? (units (unknown) date) Excellent.? unknown) (unknown) (no (unknown) (unknown) Imaging Data (units (u nknown) date) unknown) (unknown) (no (unknown) (unknown) Initial Vital (units ( unknown) date) Signs unknown) (unknown) (no (unknown) (unknown) Initial Vital (units ( unknown) date) Signs: unknown) (unknown) (no (unknown) (unknown) Instructions: DI (units (unknown) date) for Cellulitis -- unknown) Adult (unknown) (no (unknown) (unknown) [facility] (units (unknown) date) [address] unknown) [place] [address] (unknown) (no (unknown) (unknown) Lab Data (units (unkno wn) date) unknown) (unknown) (no (unknown) (unknown) Lab Results (units (un known) date) unknown) (unknown) (no (unknown) (unknown) Labs: (units (unkno wn) date) unknown) (unknown) (no (unknown) (unknown) Lactate (0.7-2.1) (units (unknown) date) mmol/L unknown) (unknown) (no (unknown) (unknown) Lactate (Lactic (units (unknown) date) Acid) Stat unknown) (unknown) (no (unknown) (unknown) Lactate 2.8 H (units ( unknown) date) (0.7-2.1) mmol/L unknown) (unknown) (no (unknown) (unknown) Last Admin: (units (un known) date) 10/22/22 19:17 unknown) Dose: 1,000 mls/hr (unknown) (no (unknown) (unknown) Last Admin: (units (un known) date) 10/22/22 19:41 unknown) Dose: 200 mls/hr (unknown) (no (unknown) (unknown) Limitations: no (units (unknown) date) limitations unknown) (unknown) (no (unknown) (unknown) Lipase (23-300) (units (unknown) date) U/L unknown) (unknown) (no (unknown) (unknown) Lipase 77 (units (unkn own) date) (23-300) U/L unknown) (unknown) (no (unknown) (unknown) Lipase Stat (units (un known) date) unknown) (unknown) (no (unknown) (unknown) Loc: ED (units (unkno wn) date) unknown) (unknown) (no (unknown) (unknown) Lymph # (Auto) (units (unknown) date) (3200-8965) /uL unknown) (unknown) (no (unknown) (unknown) Lymph # (Auto) (units (unknown) date) 1300 (1670-0895) unknown) /uL (unknown) (no (unknown) (unknown) Lymph % (Auto) (units (unknown) date) (25-40) % unknown) (unknown) (no (unknown) (unknown) Lymph % (Auto) (units (unknown) date) 11.2 L (25-40) % unknown) (unknown) (no (unknown) (unknown) MCH (26-34) PG (units (unknown) date) unknown) (unknown) (no (unknown) (unknown) MCH 30.1 (26-34) (units (unknown) date) PG unknown) (unknown) (no (unknown) (unknown) MCHC (30-36) % (units (unknown) date) unknown) (unknown) (no (unknown) (unknown) MCHC 34.6 (30-36) (units (unknown) date) % unknown) (unknown) (no (unknown) (unknown) MCV (80-100) fL (units (unknown) date) unknown) (unknown) (no (unknown) (unknown) MCV 87.1 (80-100) (units (unknown) date) fL unknown) (unknown) (no (unknown) (unknown) MDM - (units (unkno wn) date) Skin/Abscess/Forei unknown) gn Bdy (unknown) (no (unknown) (unknown) MDM Narrative (units ( unknown) date) unknown) (unknown) (no (unknown) (unknown) MR#: [id number] (units (unknown) date) unknown) (unknown) (no (unknown) (unknown) MUSCULOSKELETAL: (units (unknown) date) Denies extremity unknown) pain, injury (unknown) (no (unknown) (unknown) Medical History (units (unknown) date) (Reviewed 10/22/22 unknown) @ 19:27 by Silvia Langston DO) (unknown) (no (unknown) (unknown) Medical decision (units (unknown) date) making narrative: unknown) (unknown) (no (unknown) (unknown) Medication (units (unk nown) date) Instructions unknown) Recorded (unknown) (no (unknown) (unknown) Mode of arrival: (units (unknown) date) Ambulatory unknown) (unknown) (no (unknown) (unknown) [place] # (Auto) (units ( unknown) date) (0-900) /uL unknown) (unknown) (no (unknown) (unknown) [place] # (Auto) 800 (units (unknown) date) (0-900) /uL unknown) (unknown) (no (unknown) (unknown) [place] % (Auto) (units ( unknown) date) (3-14) % unknown) (unknown) (no (unknown) (unknown) [place] % (Auto) 7.2 (units (unknown) date) (3-14) % unknown) (unknown) (no (unknown) (unknown) NEUROLOGIC: (units (un known) date) Denies weakness, unknown) dizziness, headache, numbness (unknown) (no (unknown) (unknown) NEUROLOGICAL: (units ( unknown) date) Alert and oriented unknown) x4 (unknown) (no (unknown) (unknown) Narrative: (units (unk nown) date) unknown) (unknown) (no (unknown) (unknown) Neut # (Auto) (units ( unknown) date) (6391-9628) /uL unknown) (unknown) (no (unknown) (unknown) Neut # (Auto) (units ( unknown) date) 9100 H (3876-0180) unknown) /uL (unknown) (no (unknown) (unknown) Neut % (Auto) (units ( unknown) date) (50-75) % unknown) (unknown) (no (unknown) (unknown) Neut % (Auto) (units ( unknown) date) 81.2 H (50-75) % unknown) (unknown) (no (unknown) (unknown) No Action (units (unkn own) date) unknown) (unknown) (no (unknown) (unknown) No Known Drug (units ( unknown) date) Allergies Allergy unknown) Verified 04/07/21 19:37 (unknown) (no (unknown) (unknown) Ordered: (units (unkno wn) date) unknown) (unknown) (no (unknown) (unknown) Ordering (units (unkno wn) date) Provider: unknown) Cricket Carbajal MD (unknown) (no (unknown) (unknown) Orders (units (unkno wn) date) unknown) (unknown) (no (unknown) (unknown) Oxygen Delivery (units (unknown) date) Method 10/22/22 unknown) 16:46 (unknown) (no (unknown) (unknown) Oxygen Delivery (units (unknown) date) Method Room Air unknown) (unknown) (no (unknown) (unknown) PROCEDURE:? CT (units (unknown) date) FACIAL BONES W CON unknown) (unknown) (no (unknown) (unknown) PT (10.1-12.7) (units (unknown) date) SECONDS unknown) (unknown) (no (unknown) (unknown) PT 16.3 H (units (unkn own) date) (10.1-12.7) unknown) SECONDS (unknown) (no (unknown) (unknown) Palpitations (units (u nknown) date) unknown) (unknown) (no (unknown) (unknown) Partial (units (unkno wn) date) Thromboplastin unknown) Time Stat (unknown) (no (unknown) (unknown) Patient (units (unkno wn) date) Disposition: Home unknown) (unknown) (no (unknown) (unknown) Patient History (units (unknown) date) unknown) (unknown) (no (unknown) (unknown) Patient has a (units ( unknown) date) mildly elevated unknown) lactate of 2.8 mildly cardiac of 102 of (unknown) (no (unknown) (unknown) Patient is a (units (u nknown) date) 21-year-old male unknown) history of ethanol abuse she smokes regularly (unknown) (no (unknown) (unknown) Patient overall (units (unknown) date) is not septic unknown) obvious facial cellulitis. Given 1st dose of (unknown) (no (unknown) (unknown) Patient: (units (unkno wn) date) Rodolfo Ackerman unknown) MR#: [id number] (unknown) (no (unknown) (unknown) Patient: (units (unkno wn) date) Rodolfo Ackerman unknown) (unknown) (no (unknown) (unknown) Plt Count (units (unkn own) date) (150-400) X103/uL unknown) (unknown) (no (unknown) (unknown) Plt Count 246 (units ( unknown) date) (150-400) X103/uL unknown) (unknown) (no (unknown) (unknown) Postsurgical (units (un known) date) changes in the unknown) cervical spine are partially imaged.? Dental disease (unknown) (no (unknown) (unknown) Potassium (units (unkn own) date) (3.4-5.1) mmol/L unknown) (unknown) (no (unknown) (unknown) Potassium 3.5 (units ( unknown) date) (3.4-5.1) mmol/L unknown) (unknown) (no (unknown) (unknown) Prescriptions: (units (unknown) date) unknown) (unknown) (no (unknown) (unknown) Previous Rx's (units ( unknown) date) unknown) (unknown) (no (unknown) (unknown) Procalcitonin (units ( unknown) date) (<0.5) ng/mL unknown) (unknown) (no (unknown) (unknown) Procalcitonin (units ( unknown) date) 0.13 (<0.5) ng/mL unknown) (unknown) (no (unknown) (unknown) Procalcitonin (units ( unknown) date) Stat unknown) (unknown) (no (unknown) (unknown) Procedure: CT (units ( unknown) date) facial bones w con unknown) (unknown) (no (unknown) (unknown) Prothrombin Time (units (unknown) date) INR Stat unknown) (unknown) (no (unknown) (unknown) Pulse Oximetry 97 (units (unknown) date) 10/22/22 16:46 unknown) (unknown) (no (unknown) (unknown) Pulse Oximetry 97 (units (unknown) date) unknown) (unknown) (no (unknown) (unknown) Pulse Rate 102 H (units (unknown) date) 10/22/22 16:46 unknown) (unknown) (no (unknown) (unknown) Pulse Rate 102 H (units (unknown) date) unknown) (unknown) (no (unknown) (unknown) RBC (4.5-5.9) (units ( unknown) date) X106/uL unknown) (unknown) (no (unknown) (unknown) RBC 4.56 (units (unkno wn) date) (4.5-5.9) X106/uL unknown) (unknown) (no (unknown) (unknown) RDW (11.6-14.8) % (units (unknown) date) unknown) (unknown) (no (unknown) (unknown) RDW 13.1 (units (unkno wn) date) (11.6-14.8) % unknown) (unknown) (no (unknown) (unknown) RESPIRATORY: (units (u nknown) date) Breath sounds unknown) equal bilaterally, no wheezes rales or rhonchi. (unknown) (no (unknown) (unknown) RESPIRATORY: (units (u nknown) date) Denies dyspnea, unknown) cough, wheezing (unknown) (no (unknown) (unknown) Radiologist's (units ( unknown) date) Impression: unknown) (unknown) (no (unknown) (unknown) Related Data (units (u nknown) date) unknown) (unknown) (no (unknown) (unknown) Respiratory Rate (units (unknown) date) 18 10/22/22 16:46 unknown) (unknown) (no (unknown) (unknown) Respiratory Rate (units (unknown) date) 18 unknown) (unknown) (no (unknown) (unknown) Result diagrams: (units (unknown) date) unknown) (unknown) (no (unknown) (unknown) Review of Systems (units (unknown) date) unknown) (unknown) (no (unknown) (unknown) SKIN: Facial (units (u nknown) date) erythema over unknown) bridge of nose mostly on the right side inferior (unknown) (no (unknown) (unknown) SKIN: See HPI (units ( unknown) date) unknown) (unknown) (no (unknown) (unknown) Signed By: (units (unk nown) date) unknown) (unknown) (no (unknown) (unknown) Signed (units (unkno wn) date) unknown) (unknown) (no (unknown) (unknown) Sinus tachycardia (units (unknown) date) unknown) (unknown) (no (unknown) (unknown) Sinuses:? (units (unkn own) date) Paranasal sinuses unknown) are aerated without fluid levels, mucosal (unknown) (no (unknown) (unknown) Smoking Status: (units (unknown) date) Current every day unknown) smoker (unknown) (no (unknown) (unknown) Social History (units (unknown) date) (Reviewed 10/22/22 unknown) @ 19:27 by Silvia Langston DO) (unknown) (no (unknown) (unknown) Sodium (137-145) (units (unknown) date) mmol/L unknown) (unknown) (no (unknown) (unknown) Sodium 133 L (units (u nknown) date) (137-145) mmol/L unknown) (unknown) (no (unknown) (unknown) Sodium Chloride (units (unknown) date) (Normal Saline unknown) 0.9%) 1,000 mls @ 1,000 mls/hr IV BOLUS ONE (unknown) (no (unknown) (unknown) Soft tissues:? (units ( unknown) date) Nonspecific soft unknown) tissue edema is seen in the subcutaneous tissues (unknown) (no (unknown) (unknown) Source: patient (units (unknown) date) unknown) (unknown) (no (unknown) (unknown) Stated complaint: (units (unknown) date) Facial swelling unknown) (unknown) (no (unknown) (unknown) Stop: 10/22/22 (units (unknown) date) 18:21 unknown) (unknown) (no (unknown) (unknown) Stop: 10/22/22 (units (unknown) date) 19:21 unknown) (unknown) (no (unknown) (unknown) Stop: 10/22/22 (units (unknown) date) 20:19 unknown) (unknown) (no (unknown) (unknown) Stop: 10/22/22 (units (unknown) date) 20:20 unknown) (unknown) (no (unknown) (unknown) Substance Use (units ( unknown) date) Type: marijuana, unknown) heroin, methamphetamine and other (unknown) (no (unknown) (unknown) TECHNIQUE:? (units (un known) date) unknown) (unknown) (no (unknown) (unknown) Temperature 98.7 (units (unknown) date) F 10/22/22 16:46 unknown) (unknown) (no (unknown) (unknown) Temperature 98.7 (units (unknown) date) F unknown) (unknown) (no (unknown) (unknown) Time Seen by (units (u nknown) date) Provider: 10/22/22 unknown) 19:10 (unknown) (no (unknown) (unknown) Total Bilirubin (units (unknown) date) (0.2-1.3) mg/dL unknown) (unknown) (no (unknown) (unknown) Total Bilirubin (units (unknown) date) 0.7 (0.2-1.3) unknown) mg/dL (unknown) (no (unknown) (unknown) Total Protein (units ( unknown) date) (6.3-8.2) g/dL unknown) (unknown) (no (unknown) (unknown) Total Protein 7.6 (units (unknown) date) (6.3-8.2) g/dL unknown) (unknown) (no (unknown) (unknown) Unasyn and vanc (units (unknown) date) here. Will put him unknown) on Augmentin and Bactrim (unknown) (no (unknown) (unknown) Vancomycin HCl (units (unknown) date) (Vancomycin) 750 unknown) mg in 150 mls @ 150 mls/hr IV NOW ONE (unknown) (no (unknown) (unknown) Vascular:? (units (unk nown) date) Visualized unknown) vascular structures appear patent throughout.? Bony (unknown) (no (unknown) (unknown) Visualized (units (unk nown) date) portions of the unknown) skull base and auditory canals also appear normal.? (unknown) (no (unknown) (unknown) Vital Signs - 8 (units (unknown) date) hr unknown) (unknown) (no (unknown) (unknown) Vital Signs (units (un known) date) unknown) (unknown) (no (unknown) (unknown) Vital signs: (units (u nknown) date) unknown) (unknown) (no (unknown) (unknown) WBC (4.5-11.0) (units (unknown) date) X103/uL unknown) (unknown) (no (unknown) (unknown) WBC 11.2 H (units (unk nown) date) (4.5-11.0) X103/uL unknown) (unknown) (no (unknown) (unknown) [At your request (units (unknown) date) you're medications unknown) have been faxed to] (unknown) (no (unknown) (unknown) [Embedded Image (units (unknown) date) Not Available] unknown) (unknown) (no (unknown) (unknown) [and follow up (units (unknown) date) with ortho, unknown) urology etc] (unknown) (no (unknown) (unknown) alcohol intake (units (unknown) date) frequency: 0-2 unknown) drinks per day (unknown) (no (unknown) (unknown) and/or (units (unkno wn) date) unknown) (unknown) (no (unknown) (unknown) at the (units (unkno wn) date) unknown) (unknown) (no (unknown) (unknown) at this time, (units ( unknown) date) sinusitis, unknown) (unknown) (no (unknown) (unknown) collection or (units ( unknown) date) abscess.? No unknown) enlarged lymph nodes.? (unknown) (no (unknown) (unknown) destruction.? (units ( unknown) date) unknown) (unknown) (no (unknown) (unknown) difficulty seeing (units (unknown) date) feels like his unknown) nose is congested. He denies any dental pain. (unknown) (no (unknown) (unknown) fluoxetine 20 mg (units (unknown) date) capsule 20 mg PO unknown) DAILY #30 caps 04/07/21 (unknown) (no (unknown) (unknown) fluoxetine 20 mg (units (unknown) date) capsule unknown) (unknown) (no (unknown) (unknown) foramina and (units (u nknown) date) canals appear unknown) normal.? (unknown) (no (unknown) (unknown) from the (units (unkno wn) date) unknown) (unknown) (no (unknown) (unknown) guarding or (units (un known) date) rebound. unknown) (unknown) (no (unknown) (unknown) happened before. (units (unknown) date) unknown) (unknown) (no (unknown) (unknown) intact (units (unkno wn) date) unknown) (unknown) (no (unknown) (unknown) intraorbital (units (u nknown) date) edema.? No focal unknown) fluid collection or abscess. (unknown) (no (unknown) (unknown) is (units (unkno wn) date) unknown) (unknown) (no (unknown) (unknown) kV according to (units (unknown) date) patient size.? unknown) (unknown) (no (unknown) (unknown) leukocytosis of (units (unknown) date) 11.2 an obvious unknown) cellulitis on his face. No airway compromise. (unknown) (no (unknown) (unknown) membranes (units (unkn own) date) unknown) (unknown) (no (unknown) (unknown) mid-neck to the (units (unknown) date) frontal sinuses, unknown) with coronal and sagittal reformats.? For (unknown) (no (unknown) (unknown) mucoceles.? (units (un known) date) Mastoid air cells unknown) are aerated.? (unknown) (no (unknown) (unknown) nose beginning to (units (unknown) date) go up into the unknown) orbital area and forehead. No eye pain no (unknown) (no (unknown) (unknown) noted. (units (unkno wn) date) unknown) (unknown) (no (unknown) (unknown) orbital area does (units (unknown) date) not go around full unknown) periorbital region (unknown) (no (unknown) (unknown) presenting today (units (unknown) date) with facial unknown) redness and swelling. Mostly over the bridge of (unknown) (no (unknown) (unknown) propranolol 10 mg (units (unknown) date) tablet 10 mg PO unknown) BID #30 tabs 04/07/21 (unknown) (no (unknown) (unknown) propranolol 10 mg (units (unknown) date) tablet unknown) (unknown) (no (unknown) (unknown) radiation dose (units (unknown) date) unknown) (unknown) (no (unknown) (unknown) reduction, the (units ( unknown) date) following was unknown) used:? automated exposure control, adjustment of mA (unknown) (no (unknown) (unknown) right face just (units (unknown) date) inferior to the unknown) orbit.? No intraorbital edema is seen.? No fluid (unknown) (no (unknown) (unknown) symptoms (units (unkno wn) date) unknown) (unknown) (no (unknown) (unknown) thickening, or (units (unknown) date) unknown) (unknown) (no (unknown) (unknown) tobacco type: (units ( unknown) date) cigarettes unknown) (unknown) (no (unknown) (unknown) vascular (units (unkno wn) date) unknown) Result panel 90 (unknown) (no (unknown) (unknown) (no value) (units (unk nown) date) unknown) (unknown) (no (unknown) (unknown) *Continue to take (units (unknown) date) medications as unknown) directed (unknown) (no (unknown) (unknown) *Follow up with (units (unknown) date) your primary care unknown) provider in 2-3 days or call [phone] (unknown) (no (unknown) (unknown) *Return to ER if (units (unknown) date) you should have unknown) [such as] [or] any new, worsening or concerning (unknown) (no (unknown) (unknown) *What to do: (units (u nknown) date) unknown) (unknown) (no (unknown) (unknown) *You have been (units (unknown) date) diagnosed with unknown) cellulitis (unknown) (no (unknown) (unknown) [id number] (units (unkno wn) date) unknown) (unknown) (no (unknown) (unknown) 10 mg PO BID Qty: (units (unknown) date) 30 0RF unknown) (unknown) (no (unknown) (unknown) 10/22/22 10/22/22 (units (unknown) date) 10/22/22 unknown) Range/Units (unknown) (no (unknown) (unknown) 10/22/22 17:00 (units (unknown) date) unknown) (unknown) (no (unknown) (unknown) 10/22/22 17:23 (units (unknown) date) unknown) (unknown) (no (unknown) (unknown) 10/22/22 19:16 (units (unknown) date) unknown) (unknown) (no (unknown) (unknown) 10/22/22 (units (unkno wn) date) Range/Units unknown) (unknown) (no (unknown) (unknown) 10/22/22 (units (unkno wn) date) unknown) (unknown) (no (unknown) (unknown) 16:46 (units (unkno wn) date) unknown) (unknown) (no (unknown) (unknown) 17:00 17:00 17:00 (units (unknown) date) unknown) (unknown) (no (unknown) (unknown) 17:00 (units (unkno wn) date) unknown) (unknown) (no (unknown) (unknown) 20 mg PO DAILY (units (unknown) date) Qty: 30 0RF unknown) (unknown) (no (unknown) (unknown) 8 point review of (units (unknown) date) systems is unknown) negative except for those stated above and HPI (unknown) (no (unknown) (unknown) ? (units (unkno wn) date) unknown) (unknown) (no (unknown) (unknown) ABDOMEN: Soft, (units (unknown) date) nontender. unknown) Normoactive bowel sounds all 4 quadrants. No (unknown) (no (unknown) (unknown) ALT (<50) IU/L (units (unknown) date) unknown) (unknown) (no (unknown) (unknown) ALT 22 (<50) IU/L (units (unknown) date) unknown) (unknown) (no (unknown) (unknown) APTT (26-36) (units (u nknown) date) SECONDS unknown) (unknown) (no (unknown) (unknown) APTT 27 (26-36) (units (unknown) date) SECONDS unknown) (unknown) (no (unknown) (unknown) AST (17-59) IU/L (units (unknown) date) unknown) (unknown) (no (unknown) (unknown) AST 32 (17-59) (units (unknown) date) IU/L unknown) (unknown) (no (unknown) (unknown) Accession Number: (units (unknown) date) [id number] ?? unknown) (unknown) (no (unknown) (unknown) Acct:[id number] (units (unknown) date) unknown) (unknown) (no (unknown) (unknown) Activity (units (unkno wn) date) Restrictions/Addit unknown) ional Instructions: (unknown) (no (unknown) (unknown) After the (units (unkno wn) date) administration of unknown) intravenous contrast, 2.5 mm axial sections acquired (unknown) (no (unknown) (unknown) Age/Sex: 21 / M (units (unknown) date) unknown) (unknown) (no (unknown) (unknown) Albumin (3.5-5.0) (units (unknown) date) g/dL unknown) (unknown) (no (unknown) (unknown) Albumin 4.3 (units (un known) date) (3.5-5.0) g/dL unknown) (unknown) (no (unknown) (unknown) Albumin/Globulin (units (unknown) date) Ratio (1.0-2.8) unknown) (unknown) (no (unknown) (unknown) Albumin/Globulin (units (unknown) date) Ratio 1.3 unknown) (1.0-2.8) (unknown) (no (unknown) (unknown) Alkaline (units (unkno wn) date) Phosphatase unknown) (38-126) U/L (unknown) (no (unknown) (unknown) Alkaline (units (unkno wn) date) Phosphatase 104 unknown) (38-126) U/L (unknown) (no (unknown) (unknown) Allergies (units (unkn own) date) unknown) (unknown) (no (unknown) (unknown) Allergy/AdvReac (units (unknown) date) Type Severity unknown) Reaction Status Date / Time (unknown) (no (unknown) (unknown) Ampicillin (units (unk nown) date) Sodium/Sulbactam unknown) (Sodium 3 gm/ Sodium Chloride) 100 mls @ 200 mls/hr (unknown) (no (unknown) (unknown) Anxiety (units (unkno wn) date) unknown) (unknown) (no (unknown) (unknown) Approved by: (units (u nknown) date) Dylan Malik unknownAshlyn Perry on 10/22/2022 at 20:04? (unknown) (no (unknown) (unknown) At this time (units (u nknown) date) differential unknown) includes orbital cellulitis although I think unlikely (unknown) (no (unknown) (unknown) BUN (9-20) mg/dL (units (unknown) date) unknown) (unknown) (no (unknown) (unknown) BUN 12 (9-20) (units ( unknown) date) mg/dL unknown) (unknown) (no (unknown) (unknown) BUN/Creatinine (units (unknown) date) Ratio (6-22) unknown) (unknown) (no (unknown) (unknown) BUN/Creatinine (units (unknown) date) Ratio 21.8 (6-22) unknown) (unknown) (no (unknown) (unknown) Baso # (Auto) (units ( unknown) date) (0-100) /uL unknown) (unknown) (no (unknown) (unknown) Baso # (Auto) 0 (units (unknown) date) (0-100) /uL unknown) (unknown) (no (unknown) (unknown) Baso % (Auto) (units ( unknown) date) (0-2) % unknown) (unknown) (no (unknown) (unknown) Baso % (Auto) 0.3 (units (unknown) date) (0-2) % unknown) (unknown) (no (unknown) (unknown) Blood Culture (units ( unknown) date) Stat unknown) (unknown) (no (unknown) (unknown) Blood Pressure (units (unknown) date) 130/59 L 10/22/22 unknown) 16:46 (unknown) (no (unknown) (unknown) Blood Pressure (units (unknown) date) 130/59 L unknown) (unknown) (no (unknown) (unknown) Bones:? Facial (units (unknown) date) bones appear unknown) intact, without fractures, erosions, or (unknown) (no (unknown) (unknown) CARDIOVASCULAR: (units (unknown) date) Denies chest pain, unknown) palpitations (unknown) (no (unknown) (unknown) CARDIOVASCULAR: (units (unknown) date) Regular rate and unknown) rhythm without murmurs, rubs or gallops. (unknown) (no (unknown) (unknown) COMPARISON:? (units (u nknown) date) None. unknown) (unknown) (no (unknown) (unknown) CT Scan Report (units (unknown) date) unknown) (unknown) (no (unknown) (unknown) CT facial bones w (units (unknown) date) con Stat unknown) (unknown) (no (unknown) (unknown) CT facial: (units (unk nown) date) unknown) (unknown) (no (unknown) (unknown) Calcium (units (unkno wn) date) (8.4-10.2) mg/dL unknown) (unknown) (no (unknown) (unknown) Calcium 9.2 (units (un known) date) (8.4-10.2) mg/dL unknown) (unknown) (no (unknown) (unknown) Carbon Dioxide (units (unknown) date) (22-32) mmol/L unknown) (unknown) (no (unknown) (unknown) Carbon Dioxide 26 (units (unknown) date) (22-32) mmol/L unknown) (unknown) (no (unknown) (unknown) Cellulitis (units (unk n) date) unknown) (unknown) (no (unknown) (unknown) Chief complaint: (units (unknown) date) Skin/Abscess/Forei unknown) gn Body (unknown) (no (unknown) (unknown) Chloride (98-107) (units (unknown) date) mmol/L unknown) (unknown) (no (unknown) (unknown) Chloride 95 L (units ( unknown) date) (98-107) mmol/L unknown) (unknown) (no (unknown) (unknown) Clinical (units (unkno wn) date) Impression: unknown) (unknown) (no (unknown) (unknown) Complete Blood (units (unknown) date) Count AUTO DIFF unknown) Stat (unknown) (no (unknown) (unknown) Comprehensive (units ( unknown) date) Metabolic Panel unknown) Stat (unknown) (no (unknown) (unknown) Course (units (o wn) date) unknown) (unknown) (no (unknown) (unknown) Creatinine (units (k ) date) (0.66-1.25) mg/dL unknown) (unknown) (no (unknown) (unknown) Creatinine 0.55 L (units (unknown) date) (0.66-1.25) mg/dL unknown) (unknown) (no (unknown) (unknown) : 2000 (units (unknown) date) Acct:[id number] unknown) (unknown) (no (unknown) (unknown) : 2000 (units (unknown) date) unknown) (unknown) (no (unknown) (unknown) Date of Service: (units (unknown) date) 10/22/22 unknown) (unknown) (no (unknown) (unknown) Departure (units (unkn own) date) unknown) (unknown) (no (unknown) (unknown) Depression (units (unk nown) date) unknown) (unknown) (no (unknown) (unknown) Discharge Plan (units (unknown) date) unknown) (unknown) (no (unknown) (unknown) Discontinued (units (u nknown) date) Medications unknown) (unknown) (no (unknown) (unknown) Documented By: (units (unknown) date) KLS unknown) (unknown) (no (unknown) (unknown) ED Orders (units (unkn own) date) unknown) (unknown) (no (unknown) (unknown) ER Physician: (units ( unknown) date) Silvia Langston unknown) D.O. (unknown) (no (unknown) (unknown) EXTREMITIES: (units (u nknown) date) Normal range of unknown) motion, no clubbing or edema. Neurovascularly (unknown) (no (unknown) (unknown) Emergency Report (units (unknown) date) unknown) (unknown) (no (unknown) (unknown) Eos # (Auto) (units (u nknown) date) (0-450) /uL unknown) (unknown) (no (unknown) (unknown) Eos # (Auto) 0 (units (unknown) date) (0-450) /uL unknown) (unknown) (no (unknown) (unknown) Eos % (Auto) (units (u nknown) date) (2-4) % unknown) (unknown) (no (unknown) (unknown) Eos % (Auto) 0.1 (units (unknown) date) L (2-4) % unknown) (unknown) (no (unknown) (unknown) Estimated GFR > (units (unknown) date) 60 (>60) mL/min unknown) (unknown) (no (unknown) (unknown) Estimated GFR (units ( unknown) date) (>60) mL/min unknown) (unknown) (no (unknown) (unknown) Exam (units (unkno wn) date) unknown) (unknown) (no (unknown) (unknown) FINDINGS:? (units (unk nown) date) unknown) (unknown) (no (unknown) (unknown) GASTROINTESTINAL: (units (unknown) date) Denies nausea, unknown) vomiting (unknown) (no (unknown) (unknown) GENERAL: Alert (units (unknown) date) thin 21-year-old unknown) male (unknown) (no (unknown) (unknown) GENERAL: Denies (units (unknown) date) chills,fever unknown) (unknown) (no (unknown) (unknown) General (units (unkno wn) date) unknown) (unknown) (no (unknown) (unknown) Globulin (units (unkno wn) date) (1.7-4.1) g/dL unknown) (unknown) (no (unknown) (unknown) Globulin 3.3 (units (u nknown) date) (1.7-4.1) g/dL unknown) (unknown) (no (unknown) (unknown) Glucose (70-100) (units (unknown) date) mg/dL unknown) (unknown) (no (unknown) (unknown) Glucose 169 H (units ( unknown) date) (70-100) mg/dL unknown) (unknown) (no (unknown) (unknown) HEENT: Denies (units ( unknown) date) throat pain unknown) (unknown) (no (unknown) (unknown) HEENT: Head (units (un known) date) atraumatic,EOMI, unknown) pupils reactive, face symmetric, moist mucous (unknown) (no (unknown) (unknown) HPI - (units (unkno wn) date) Skin/Abscess/Forei unknown) gn Bdy (unknown) (no (unknown) (unknown) HPI narrative: (units (unknown) date) unknown) (unknown) (no (unknown) (unknown) Hct (41-53) % (units ( unknown) date) unknown) (unknown) (no (unknown) (unknown) Hct 39.7 L (units (unk nown) date) (41-53) % unknown) (unknown) (no (unknown) (unknown) He does not use (units (unknown) date) IV drugs. He has unknown) no difficulty breathing or speaking. Never (unknown) (no (unknown) (unknown) He is given IV (units (unknown) date) fluids antibiotics unknown) in the ED. CT confirms probable cellulitis. (unknown) (no (unknown) (unknown) Hgb (13.5-17.5) (units (unknown) date) g/dL unknown) (unknown) (no (unknown) (unknown) Hgb 13.7 (units (unkno wn) date) (13.5-17.5) g/dL unknown) (unknown) (no (unknown) (unknown) History of (units (unk nown) date) Present Illness unknown) (unknown) (no (unknown) (unknown) IMPRESSION:? (units (u nknown) date) Nonspecific soft unknown) tissue edema in the right periorbital region.? No (unknown) (no (unknown) (unknown) INDICATIONS:? ? (units (unknown) date) donell orbital unknown) edema/ cellulitis, (unknown) (no (unknown) (unknown) INR (0.9-1.3) (units ( unknown) date) unknown) (unknown) (no (unknown) (unknown) INR 1.4 H (units (unkn own) date) (0.9-1.3) unknown) (unknown) (no (unknown) (unknown) IV NOW ONE (units (unk nown) date) unknown) (unknown) (no (unknown) (unknown) Image quality:? (units (unknown) date) Excellent.? unknown) (unknown) (no (unknown) (unknown) Imaging Data (units (u nknown) date) unknown) (unknown) (no (unknown) (unknown) Initial Vital (units ( unknown) date) Signs unknown) (unknown) (no (unknown) (unknown) Initial Vital (units ( unknown) date) Signs: unknown) (unknown) (no (unknown) (unknown) Instructions: DI (units (unknown) date) for Cellulitis -- unknown) Adult (unknown) (no (unknown) (unknown) [facility] (units (unknown) date) [address] unknown) [place] [address] (unknown) (no (unknown) (unknown) Lab Data (units (unkno wn) date) unknown) (unknown) (no (unknown) (unknown) Lab Results (units (un known) date) unknown) (unknown) (no (unknown) (unknown) Labs: (units (unkno wn) date) unknown) (unknown) (no (unknown) (unknown) Lactate (0.7-2.1) (units (unknown) date) mmol/L unknown) (unknown) (no (unknown) (unknown) Lactate (Lactic (units (unknown) date) Acid) Stat unknown) (unknown) (no (unknown) (unknown) Lactate 2.8 H (units ( unknown) date) (0.7-2.1) mmol/L unknown) (unknown) (no (unknown) (unknown) Last Admin: (units (un known) date) 10/22/22 19:17 unknown) Dose: 1,000 mls/hr (unknown) (no (unknown) (unknown) Last Admin: (units (un known) date) 10/22/22 19:41 unknown) Dose: 200 mls/hr (unknown) (no (unknown) (unknown) Limitations: no (units (unknown) date) limitations unknown) (unknown) (no (unknown) (unknown) Lipase (23-300) (units (unknown) date) U/L unknown) (unknown) (no (unknown) (unknown) Lipase 77 (units (unkn own) date) (23-300) U/L unknown) (unknown) (no (unknown) (unknown) Lipase Stat (units (un known) date) unknown) (unknown) (no (unknown) (unknown) Loc: ED (units (unkno wn) date) unknown) (unknown) (no (unknown) (unknown) Lymph # (Auto) (units (unknown) date) (0027-9436) /uL unknown) (unknown) (no (unknown) (unknown) Lymph # (Auto) (units (unknown) date) 1300 (3919-4236) unknown) /uL (unknown) (no (unknown) (unknown) Lymph % (Auto) (units (unknown) date) (25-40) % unknown) (unknown) (no (unknown) (unknown) Lymph % (Auto) (units (unknown) date) 11.2 L (25-40) % unknown) (unknown) (no (unknown) (unknown) MCH (26-34) PG (units (unknown) date) unknown) (unknown) (no (unknown) (unknown) MCH 30.1 (26-34) (units (unknown) date) PG unknown) (unknown) (no (unknown) (unknown) MCHC (30-36) % (units (unknown) date) unknown) (unknown) (no (unknown) (unknown) MCHC 34.6 (30-36) (units (unknown) date) % unknown) (unknown) (no (unknown) (unknown) MCV (80-100) fL (units (unknown) date) unknown) (unknown) (no (unknown) (unknown) MCV 87.1 (80-100) (units (unknown) date) fL unknown) (unknown) (no (unknown) (unknown) MDM - (units (unkno wn) date) Skin/Abscess/Forei unknown) gn Bdy (unknown) (no (unknown) (unknown) MDM Narrative (units ( unknown) date) unknown) (unknown) (no (unknown) (unknown) MR#: [id number] (units (unknown) date) unknown) (unknown) (no (unknown) (unknown) MUSCULOSKELETAL: (units (unknown) date) Denies extremity unknown) pain, injury (unknown) (no (unknown) (unknown) Medical History (units (unknown) date) (Reviewed 10/22/22 unknown) @ 19:27 by Silvia Langston DO) (unknown) (no (unknown) (unknown) Medical decision (units (unknown) date) making narrative: unknown) (unknown) (no (unknown) (unknown) Medication (units (unk nown) date) Instructions unknown) Recorded (unknown) (no (unknown) (unknown) Mode of arrival: (units (unknown) date) Ambulatory unknown) (unknown) (no (unknown) (unknown) [place] # (Auto) (units ( unknown) date) (0-900) /uL unknown) (unknown) (no (unknown) (unknown) [place] # (Auto) 800 (units (unknown) date) (0-900) /uL unknown) (unknown) (no (unknown) (unknown) [place] % (Auto) (units ( unknown) date) (3-14) % unknown) (unknown) (no (unknown) (unknown) [place] % (Auto) 7.2 (units (unknown) date) (3-14) % unknown) (unknown) (no (unknown) (unknown) NEUROLOGIC: (units (un known) date) Denies weakness, unknown) dizziness, headache, numbness (unknown) (no (unknown) (unknown) NEUROLOGICAL: (units ( unknown) date) Alert and oriented unknown) x4 (unknown) (no (unknown) (unknown) Narrative: (units (unk nown) date) unknown) (unknown) (no (unknown) (unknown) Neut # (Auto) (units ( unknown) date) (5546-3139) /uL unknown) (unknown) (no (unknown) (unknown) Neut # (Auto) (units ( unknown) date) 9100 H (2718-7193) unknown) /uL (unknown) (no (unknown) (unknown) Neut % (Auto) (units ( unknown) date) (50-75) % unknown) (unknown) (no (unknown) (unknown) Neut % (Auto) (units ( unknown) date) 81.2 H (50-75) % unknown) (unknown) (no (unknown) (unknown) No Action (units (unkn own) date) unknown) (unknown) (no (unknown) (unknown) No Known Drug (units ( unknown) date) Allergies Allergy unknown) Verified 04/07/21 19:37 (unknown) (no (unknown) (unknown) Ordered: (units (unkno wn) date) unknown) (unknown) (no (unknown) (unknown) Ordering (units (unkno wn) date) Provider: unknown) Cricket Carbajal MD (unknown) (no (unknown) (unknown) Orders (units (unkno wn) date) unknown) (unknown) (no (unknown) (unknown) Oxygen Delivery (units (unknown) date) Method 10/22/22 unknown) 16:46 (unknown) (no (unknown) (unknown) Oxygen Delivery (units (unknown) date) Method Room Air unknown) (unknown) (no (unknown) (unknown) PROCEDURE:? CT (units (unknown) date) FACIAL BONES W CON unknown) (unknown) (no (unknown) (unknown) PT (10.1-12.7) (units (unknown) date) SECONDS unknown) (unknown) (no (unknown) (unknown) PT 16.3 H (units (unkn own) date) (10.1-12.7) unknown) SECONDS (unknown) (no (unknown) (unknown) Palpitations (units (u nknown) date) unknown) (unknown) (no (unknown) (unknown) Partial (units (unkno wn) date) Thromboplastin unknown) Time Stat (unknown) (no (unknown) (unknown) Patient (units (unkno wn) date) Disposition: Home unknown) (unknown) (no (unknown) (unknown) Patient History (units (unknown) date) unknown) (unknown) (no (unknown) (unknown) Patient has a (units ( unknown) date) mildly elevated unknown) lactate of 2.8 mildly cardiac of 102 of (unknown) (no (unknown) (unknown) Patient is a (units (u nknown) date) 21-year-old male unknown) history of ethanol abuse she smokes regularly (unknown) (no (unknown) (unknown) Patient overall (units (unknown) date) is not septic unknown) obvious facial cellulitis. Given 1st dose of (unknown) (no (unknown) (unknown) Patient: (units (unkno wn) date) Rodolfo Ackerman unknown) MR#: [id number] (unknown) (no (unknown) (unknown) Patient: (units (unkno wn) date) Rodolfo Ackerman unknown) (unknown) (no (unknown) (unknown) Plt Count (units (unkn own) date) (150-400) X103/uL unknown) (unknown) (no (unknown) (unknown) Plt Count 246 (units ( unknown) date) (150-400) X103/uL unknown) (unknown) (no (unknown) (unknown) Postsurgical (units (un known) date) changes in the unknown) cervical spine are partially imaged.? Dental disease (unknown) (no (unknown) (unknown) Potassium (units (unkn own) date) (3.4-5.1) mmol/L unknown) (unknown) (no (unknown) (unknown) Potassium 3.5 (units ( unknown) date) (3.4-5.1) mmol/L unknown) (unknown) (no (unknown) (unknown) Prescriptions: (units (unknown) date) unknown) (unknown) (no (unknown) (unknown) Previous Rx's (units ( unknown) date) unknown) (unknown) (no (unknown) (unknown) Procalcitonin (units ( unknown) date) (<0.5) ng/mL unknown) (unknown) (no (unknown) (unknown) Procalcitonin (units ( unknown) date) 0.13 (<0.5) ng/mL unknown) (unknown) (no (unknown) (unknown) Procalcitonin (units ( unknown) date) Stat unknown) (unknown) (no (unknown) (unknown) Procedure: CT (units ( unknown) date) facial bones w con unknown) (unknown) (no (unknown) (unknown) Prothrombin Time (units (unknown) date) INR Stat unknown) (unknown) (no (unknown) (unknown) Pulse Oximetry 97 (units (unknown) date) 10/22/22 16:46 unknown) (unknown) (no (unknown) (unknown) Pulse Oximetry 97 (units (unknown) date) unknown) (unknown) (no (unknown) (unknown) Pulse Rate 102 H (units (unknown) date) 10/22/22 16:46 unknown) (unknown) (no (unknown) (unknown) Pulse Rate 102 H (units (unknown) date) unknown) (unknown) (no (unknown) (unknown) RBC (4.5-5.9) (units ( unknown) date) X106/uL unknown) (unknown) (no (unknown) (unknown) RBC 4.56 (units (unkno wn) date) (4.5-5.9) X106/uL unknown) (unknown) (no (unknown) (unknown) RDW (11.6-14.8) % (units (unknown) date) unknown) (unknown) (no (unknown) (unknown) RDW 13.1 (units (unkno wn) date) (11.6-14.8) % unknown) (unknown) (no (unknown) (unknown) RESPIRATORY: (units (u nknown) date) Breath sounds unknown) equal bilaterally, no wheezes rales or rhonchi. (unknown) (no (unknown) (unknown) RESPIRATORY: (units (u nknown) date) Denies dyspnea, unknown) cough, wheezing (unknown) (no (unknown) (unknown) Radiologist's (units ( unknown) date) Impression: unknown) (unknown) (no (unknown) (unknown) Related Data (units (u nknown) date) unknown) (unknown) (no (unknown) (unknown) Respiratory Rate (units (unknown) date) 18 10/22/22 16:46 unknown) (unknown) (no (unknown) (unknown) Respiratory Rate (units (unknown) date) 18 unknown) (unknown) (no (unknown) (unknown) Result diagrams: (units (unknown) date) unknown) (unknown) (no (unknown) (unknown) Review of Systems (units (unknown) date) unknown) (unknown) (no (unknown) (unknown) SKIN: Facial (units (u nknown) date) erythema over unknown) bridge of nose mostly on the right side inferior (unknown) (no (unknown) (unknown) SKIN: See HPI (units ( unknown) date) unknown) (unknown) (no (unknown) (unknown) Signed By: (units (unk nown) date) unknown) (unknown) (no (unknown) (unknown) Signed (units (unkno wn) date) unknown) (unknown) (no (unknown) (unknown) Sinus tachycardia (units (unknown) date) unknown) (unknown) (no (unknown) (unknown) Sinuses:? (units (unkn own) date) Paranasal sinuses unknown) are aerated without fluid levels, mucosal (unknown) (no (unknown) (unknown) Smoking Status: (units (unknown) date) Current every day unknown) smoker (unknown) (no (unknown) (unknown) Social History (units (unknown) date) (Reviewed 10/22/22 unknown) @ 19:27 by Silvia Langston DO) (unknown) (no (unknown) (unknown) Sodium (137-145) (units (unknown) date) mmol/L unknown) (unknown) (no (unknown) (unknown) Sodium 133 L (units (u nknown) date) (137-145) mmol/L unknown) (unknown) (no (unknown) (unknown) Sodium Chloride (units (unknown) date) (Normal Saline unknown) 0.9%) 1,000 mls @ 1,000 mls/hr IV BOLUS ONE (unknown) (no (unknown) (unknown) Soft tissues:? (units ( unknown) date) Nonspecific soft unknown) tissue edema is seen in the subcutaneous tissues (unknown) (no (unknown) (unknown) Source: patient (units (unknown) date) unknown) (unknown) (no (unknown) (unknown) Stated complaint: (units (unknown) date) Facial swelling unknown) (unknown) (no (unknown) (unknown) Stop: 10/22/22 (units (unknown) date) 18:21 unknown) (unknown) (no (unknown) (unknown) Stop: 10/22/22 (units (unknown) date) 19:21 unknown) (unknown) (no (unknown) (unknown) Stop: 10/22/22 (units (unknown) date) 20:19 unknown) (unknown) (no (unknown) (unknown) Stop: 10/22/22 (units (unknown) date) 20:20 unknown) (unknown) (no (unknown) (unknown) Substance Use (units ( unknown) date) Type: marijuana, unknown) heroin, methamphetamine and other (unknown) (no (unknown) (unknown) TECHNIQUE:? (units (un known) date) unknown) (unknown) (no (unknown) (unknown) Temperature 98.7 (units (unknown) date) F 10/22/22 16:46 unknown) (unknown) (no (unknown) (unknown) Temperature 98.7 (units (unknown) date) F unknown) (unknown) (no (unknown) (unknown) Time Seen by (units (u nknown) date) Provider: 10/22/22 unknown) 19:10 (unknown) (no (unknown) (unknown) Total Bilirubin (units (unknown) date) (0.2-1.3) mg/dL unknown) (unknown) (no (unknown) (unknown) Total Bilirubin (units (unknown) date) 0.7 (0.2-1.3) unknown) mg/dL (unknown) (no (unknown) (unknown) Total Protein (units ( unknown) date) (6.3-8.2) g/dL unknown) (unknown) (no (unknown) (unknown) Total Protein 7.6 (units (unknown) date) (6.3-8.2) g/dL unknown) (unknown) (no (unknown) (unknown) Unasyn and vanc (units (unknown) date) here. Will put him unknown) on Augmentin and Bactrim (unknown) (no (unknown) (unknown) Vancomycin HCl (units (unknown) date) (Vancomycin) 750 unknown) mg in 150 mls @ 150 mls/hr IV NOW ONE (unknown) (no (unknown) (unknown) Vascular:? (units (unk nown) date) Visualized unknown) vascular structures appear patent throughout.? Bony (unknown) (no (unknown) (unknown) Visualized (units (unk nown) date) portions of the unknown) skull base and auditory canals also appear normal.? (unknown) (no (unknown) (unknown) Vital Signs - 8 (units (unknown) date) hr unknown) (unknown) (no (unknown) (unknown) Vital Signs (units (un known) date) unknown) (unknown) (no (unknown) (unknown) Vital signs: (units (u nknown) date) unknown) (unknown) (no (unknown) (unknown) WBC (4.5-11.0) (units (unknown) date) X103/uL unknown) (unknown) (no (unknown) (unknown) WBC 11.2 H (units (unk nown) date) (4.5-11.0) X103/uL unknown) (unknown) (no (unknown) (unknown) [At your request (units (unknown) date) you're medications unknown) have been faxed to] (unknown) (no (unknown) (unknown) [Embedded Image (units (unknown) date) Not Available] unknown) (unknown) (no (unknown) (unknown) [and follow up (units (unknown) date) with ortho, unknown) urology etc] (unknown) (no (unknown) (unknown) alcohol intake (units (unknown) date) frequency: 0-2 unknown) drinks per day (unknown) (no (unknown) (unknown) and/or (units (unkno wn) date) unknown) (unknown) (no (unknown) (unknown) at the (units (unkno wn) date) unknown) (unknown) (no (unknown) (unknown) at this time, (units ( unknown) date) sinusitis, unknown) (unknown) (no (unknown) (unknown) collection or (units ( unknown) date) abscess.? No unknown) enlarged lymph nodes.? (unknown) (no (unknown) (unknown) destruction.? (units ( unknown) date) unknown) (unknown) (no (unknown) (unknown) difficulty seeing (units (unknown) date) feels like his unknown) nose is congested. He denies any dental pain. (unknown) (no (unknown) (unknown) fluoxetine 20 mg (units (unknown) date) capsule 20 mg PO unknown) DAILY #30 caps 04/07/21 (unknown) (no (unknown) (unknown) fluoxetine 20 mg (units (unknown) date) capsule unknown) (unknown) (no (unknown) (unknown) foramina and (units (u nknown) date) canals appear unknown) normal.? (unknown) (no (unknown) (unknown) from the (units (unkno wn) date) unknown) (unknown) (no (unknown) (unknown) guarding or (units (un known) date) rebound. unknown) (unknown) (no (unknown) (unknown) happened before. (units (unknown) date) unknown) (unknown) (no (unknown) (unknown) intact (units (unkno wn) date) unknown) (unknown) (no (unknown) (unknown) intraorbital (units (u nknown) date) edema.? No focal unknown) fluid collection or abscess. (unknown) (no (unknown) (unknown) is (units (unkno wn) date) unknown) (unknown) (no (unknown) (unknown) kV according to (units (unknown) date) patient size.? unknown) (unknown) (no (unknown) (unknown) leukocytosis of (units (unknown) date) 11.2 an obvious unknown) cellulitis on his face. No airway compromise. (unknown) (no (unknown) (unknown) membranes (units (unkn own) date) unknown) (unknown) (no (unknown) (unknown) mid-neck to the (units (unknown) date) frontal sinuses, unknown) with coronal and sagittal reformats.? For (unknown) (no (unknown) (unknown) mucoceles.? (units (un known) date) Mastoid air cells unknown) are aerated.? (unknown) (no (unknown) (unknown) nose beginning to (units (unknown) date) go up into the unknown) orbital area and forehead. No eye pain no (unknown) (no (unknown) (unknown) noted. (units (unkno wn) date) unknown) (unknown) (no (unknown) (unknown) orbital area does (units (unknown) date) not go around full unknown) periorbital region (unknown) (no (unknown) (unknown) presenting today (units (unknown) date) with facial unknown) redness and swelling. Mostly over the bridge of (unknown) (no (unknown) (unknown) propranolol 10 mg (units (unknown) date) tablet 10 mg PO unknown) BID #30 tabs 04/07/21 (unknown) (no (unknown) (unknown) propranolol 10 mg (units (unknown) date) tablet unknown) (unknown) (no (unknown) (unknown) radiation dose (units (unknown) date) unknown) (unknown) (no (unknown) (unknown) reduction, the (units ( unknown) date) following was unknown) used:? automated exposure control, adjustment of mA (unknown) (no (unknown) (unknown) right face just (units (unknown) date) inferior to the unknown) orbit.? No intraorbital edema is seen.? No fluid (unknown) (no (unknown) (unknown) symptoms (units (unkno wn) date) unknown) (unknown) (no (unknown) (unknown) thickening, or (units (unknown) date) unknown) (unknown) (no (unknown) (unknown) tobacco type: (units ( unknown) date) cigarettes unknown) (unknown) (no (unknown) (unknown) vascular (units (unkno wn) date) unknown) Result panel 91 (unknown) (no (unknown) (unknown) (no value) (units (unk nown) date) unknown) (unknown) (no (unknown) (unknown) (Bactrim DS) (units (u nknown) date) unknown) (unknown) (no (unknown) (unknown) *Continue to take (units (unknown) date) medications as unknown) directed--> sent to [facility] (unknown) (no (unknown) (unknown) *Follow up with (units (unknown) date) your primary care unknown) provider in 2-3 days or call [phone] (unknown) (no (unknown) (unknown) *Return to ER if (units (unknown) date) you should have unknown) increasing redness eye pain inability to open (unknown) (no (unknown) (unknown) *What to do: Try (units (unknown) date) to stay elevated or unknown) help with the swelling, may keep some ice (unknown) (no (unknown) (unknown) *You have been (units (unknown) date) diagnosed with unknown) cellulitis (unknown) (no (unknown) (unknown) [id number] (units (unkno wn) date) unknown) (unknown) (no (unknown) (unknown) 1 tab PO BID 7 (units (unknown) date) Days Qty: 14 0RF unknown) (unknown) (no (unknown) (unknown) 1 tab PO BID Qty: (units (unknown) date) 14 0RF unknown) (unknown) (no (unknown) (unknown) 10 mg PO BID Qty: (units (unknown) date) 30 0RF unknown) (unknown) (no (unknown) (unknown) 10/22/22 10/22/22 (units (unknown) date) 10/22/22 unknown) Range/Units (unknown) (no (unknown) (unknown) 10/22/22 17:00 (units (unknown) date) unknown) (unknown) (no (unknown) (unknown) 10/22/22 17:23 (units (unknown) date) unknown) (unknown) (no (unknown) (unknown) 10/22/22 19:16 (units (unknown) date) unknown) (unknown) (no (unknown) (unknown) 10/22/22 (units (unkno wn) date) Range/Units unknown) (unknown) (no (unknown) (unknown) 10/22/22 (units (unkno wn) date) unknown) (unknown) (no (unknown) (unknown) 16:46 (units (unkno wn) date) unknown) (unknown) (no (unknown) (unknown) 17:00 17:00 17:00 (units (unknown) date) unknown) (unknown) (no (unknown) (unknown) 17:00 (units (unkno wn) date) unknown) (unknown) (no (unknown) (unknown) 20 mg PO DAILY (units (unknown) date) Qty: 30 0RF unknown) (unknown) (no (unknown) (unknown) 8 point review of (units (unknown) date) systems is negative unknown) except for those stated above and HPI (unknown) (no (unknown) (unknown) ? (units (unkno wn) date) unknown) (unknown) (no (unknown) (unknown) ABDOMEN: Soft, (units (unknown) date) nontender. unknown) Normoactive bowel sounds all 4 quadrants. No (unknown) (no (unknown) (unknown) ALT (<50) IU/L (units (unknown) date) unknown) (unknown) (no (unknown) (unknown) ALT 22 (<50) IU/L (units (unknown) date) unknown) (unknown) (no (unknown) (unknown) APTT (26-36) (units (u nknown) date) SECONDS unknown) (unknown) (no (unknown) (unknown) APTT 27 (26-36) (units (unknown) date) SECONDS unknown) (unknown) (no (unknown) (unknown) AST (17-59) IU/L (units (unknown) date) unknown) (unknown) (no (unknown) (unknown) AST 32 (17-59) (units (unknown) date) IU/L unknown) (unknown) (no (unknown) (unknown) Accession Number: (units (unknown) date) [id number] ?? unknown) (unknown) (no (unknown) (unknown) Acct:[id number] (units (unknown) date) unknown) (unknown) (no (unknown) (unknown) Activity (units (unkno wn) date) Restrictions/Additi unknown) onal Instructions: (unknown) (no (unknown) (unknown) After the (units (unkno wn) date) administration of unknown) intravenous contrast, 2.5 mm axial sections acquired (unknown) (no (unknown) (unknown) Age/Sex: 21 / M (units (unknown) date) unknown) (unknown) (no (unknown) (unknown) Albumin (3.5-5.0) (units (unknown) date) g/dL unknown) (unknown) (no (unknown) (unknown) Albumin 4.3 (units (un known) date) (3.5-5.0) g/dL unknown) (unknown) (no (unknown) (unknown) Albumin/Globulin (units (unknown) date) Ratio (1.0-2.8) unknown) (unknown) (no (unknown) (unknown) Albumin/Globulin (units (unknown) date) Ratio 1.3 (1.0-2.8) unknown) (unknown) (no (unknown) (unknown) Alkaline (units (unkno wn) date) Phosphatase unknown) (38-126) U/L (unknown) (no (unknown) (unknown) Alkaline (units (unkno wn) date) Phosphatase 104 unknown) (38-126) U/L (unknown) (no (unknown) (unknown) Allergies (units (unkn own) date) unknown) (unknown) (no (unknown) (unknown) Allergy/AdvReac (units (unknown) date) Type Severity unknown) Reaction Status Date / Time (unknown) (no (unknown) (unknown) Ampicillin (units (unk nown) date) Sodium/Sulbactam unknown) (Sodium 3 gm/ Sodium Chloride) 100 mls @ 200 mls/hr (unknown) (no (unknown) (unknown) Anxiety (units (unkno wn) date) unknown) (unknown) (no (unknown) (unknown) Approved by: (units (u nknown) date) Dylan Malik unknownAshlyn Perry on 10/22/2022 at 20:04? (unknown) (no (unknown) (unknown) At this time (units (u nknown) date) differential unknown) includes orbital cellulitis although I think unlikely (unknown) (no (unknown) (unknown) Augmentin 875 (units ( unknown) date) twice a day for 7 unknown) days (unknown) (no (unknown) (unknown) BUN (9-20) mg/dL (units (unknown) date) unknown) (unknown) (no (unknown) (unknown) BUN 12 (9-20) (units ( unknown) date) mg/dL unknown) (unknown) (no (unknown) (unknown) BUN/Creatinine (units (unknown) date) Ratio (6-22) unknown) (unknown) (no (unknown) (unknown) BUN/Creatinine (units (unknown) date) Ratio 21.8 (6-22) unknown) (unknown) (no (unknown) (unknown) Bactrim 1 tablet (units (unknown) date) twice a day for 7 unknown) days (unknown) (no (unknown) (unknown) Baso # (Auto) (units ( unknown) date) (0-100) /uL unknown) (unknown) (no (unknown) (unknown) Baso # (Auto) 0 (units (unknown) date) (0-100) /uL unknown) (unknown) (no (unknown) (unknown) Baso % (Auto) (units ( unknown) date) (0-2) % unknown) (unknown) (no (unknown) (unknown) Baso % (Auto) 0.3 (units (unknown) date) (0-2) % unknown) (unknown) (no (unknown) (unknown) Blood Culture Stat (units (unknown) date) unknown) (unknown) (no (unknown) (unknown) Blood Pressure (units (unknown) date) 130/59 L 10/22/22 unknown) 16:46 (unknown) (no (unknown) (unknown) Blood Pressure (units (unknown) date) 130/59 L unknown) (unknown) (no (unknown) (unknown) Bones:? Facial (units (unknown) date) bones appear unknown) intact, without fractures, erosions, or (unknown) (no (unknown) (unknown) CARDIOVASCULAR: (units (unknown) date) Denies chest pain, unknown) palpitations (unknown) (no (unknown) (unknown) CARDIOVASCULAR: (units (unknown) date) Regular rate and unknown) rhythm without murmurs, rubs or gallops. (unknown) (no (unknown) (unknown) COMPARISON:? None. (units (unknown) date) unknown) (unknown) (no (unknown) (unknown) CT Scan Report (units (unknown) date) unknown) (unknown) (no (unknown) (unknown) CT facial bones w (units (unknown) date) con Stat unknown) (unknown) (no (unknown) (unknown) CT facial: (units (unk nown) date) unknown) (unknown) (no (unknown) (unknown) Calcium (8.4-10.2) (units (unknown) date) mg/dL unknown) (unknown) (no (unknown) (unknown) Calcium 9.2 (units (un known) date) (8.4-10.2) mg/dL unknown) (unknown) (no (unknown) (unknown) Carbon Dioxide (units (unknown) date) (22-32) mmol/L unknown) (unknown) (no (unknown) (unknown) Carbon Dioxide 26 (units (unknown) date) (22-32) mmol/L unknown) (unknown) (no (unknown) (unknown) Cellulitis (units (unk nown) date) unknown) (unknown) (no (unknown) (unknown) Chief complaint: (units (unknown) date) Skin/Abscess/Foreig unknown) n Body (unknown) (no (unknown) (unknown) Chloride (98-107) (units (unknown) date) mmol/L unknown) (unknown) (no (unknown) (unknown) Chloride 95 L (units ( unknown) date) (98-107) mmol/L unknown) (unknown) (no (unknown) (unknown) Clinical (units (unkno wn) date) Impression: unknown) (unknown) (no (unknown) (unknown) Complete Blood (units (unknown) date) Count AUTO DIFF unknown) Stat (unknown) (no (unknown) (unknown) Comprehensive (units ( unknown) date) Metabolic Panel unknown) Stat (unknown) (no (unknown) (unknown) Course (units (unkno wn) date) unknown) (unknown) (no (unknown) (unknown) Creatinine (units (unk nown) date) (0.66-1.25) mg/dL unknown) (unknown) (no (unknown) (unknown) Creatinine 0.55 L (units (unknown) date) (0.66-1.25) mg/dL unknown) (unknown) (no (unknown) (unknown) : 2000 (units (unknown) date) Acct:[id number] unknown) (unknown) (no (unknown) (unknown) : 2000 (units (unknown) date) unknown) (unknown) (no (unknown) (unknown) Date of Service: (units (unknown) date) 10/22/22 unknown) (unknown) (no (unknown) (unknown) Departure (units (unkn own) date) unknown) (unknown) (no (unknown) (unknown) Depression (units (unk nown) date) unknown) (unknown) (no (unknown) (unknown) Discharge Plan (units (unknown) date) unknown) (unknown) (no (unknown) (unknown) Discontinued (units (u nknown) date) Medications unknown) (unknown) (no (unknown) (unknown) Documented By: KLS (units (unknown) date) unknown) (unknown) (no (unknown) (unknown) ED Orders (units (unkn own) date) unknown) (unknown) (no (unknown) (unknown) ER Physician: (units ( unknown) date) Silvia Langston D.O. unknown) (unknown) (no (unknown) (unknown) EXTREMITIES: (units (u nknown) date) Normal range of unknown) motion, no clubbing or edema. Neurovascularly (unknown) (no (unknown) (unknown) Emergency Report (units (unknown) date) unknown) (unknown) (no (unknown) (unknown) Eos # (Auto) (units (u nknown) date) (0-450) /uL unknown) (unknown) (no (unknown) (unknown) Eos # (Auto) 0 (units (unknown) date) (0-450) /uL unknown) (unknown) (no (unknown) (unknown) Eos % (Auto) (2-4) (units (unknown) date) % unknown) (unknown) (no (unknown) (unknown) Eos % (Auto) 0.1 L (units (unknown) date) (2-4) % unknown) (unknown) (no (unknown) (unknown) Estimated GFR > 60 (units (unknown) date) (>60) mL/min unknown) (unknown) (no (unknown) (unknown) Estimated GFR (units ( unknown) date) (>60) mL/min unknown) (unknown) (no (unknown) (unknown) Exam (units (unkno wn) date) unknown) (unknown) (no (unknown) (unknown) FINDINGS:? (units (unk nown) date) unknown) (unknown) (no (unknown) (unknown) GASTROINTESTINAL: (units (unknown) date) Denies nausea, unknown) vomiting (unknown) (no (unknown) (unknown) GENERAL: Alert (units (unknown) date) thin 21-year-old unknown) male (unknown) (no (unknown) (unknown) GENERAL: Denies (units (unknown) date) chills,fever unknown) (unknown) (no (unknown) (unknown) General (units (unkno wn) date) unknown) (unknown) (no (unknown) (unknown) Globulin (1.7-4.1) (units (unknown) date) g/dL unknown) (unknown) (no (unknown) (unknown) Globulin 3.3 (units (u nknown) date) (1.7-4.1) g/dL unknown) (unknown) (no (unknown) (unknown) Glucose (70-100) (units (unknown) date) mg/dL unknown) (unknown) (no (unknown) (unknown) Glucose 169 H (units ( unknown) date) (70-100) mg/dL unknown) (unknown) (no (unknown) (unknown) HEENT: Denies (units ( unknown) date) throat pain unknown) (unknown) (no (unknown) (unknown) HEENT: Head (units (un known) date) atraumatic,EOMI, unknown) pupils reactive, face symmetric, moist mucous (unknown) (no (unknown) (unknown) HPI - (units (unkno wn) date) Skin/Abscess/Foreig unknown) n Bdy (unknown) (no (unknown) (unknown) HPI narrative: (units (unknown) date) unknown) (unknown) (no (unknown) (unknown) Hct (41-53) % (units ( unknown) date) unknown) (unknown) (no (unknown) (unknown) Hct 39.7 L (41-53) (units (unknown) date) % unknown) (unknown) (no (unknown) (unknown) He does not use IV (units (unknown) date) drugs. He has no unknown) difficulty breathing or speaking. Never (unknown) (no (unknown) (unknown) He is given IV (units (unknown) date) fluids antibiotics unknown) in the ED. CT confirms probable cellulitis. (unknown) (no (unknown) (unknown) Hgb (13.5-17.5) (units (unknown) date) g/dL unknown) (unknown) (no (unknown) (unknown) Hgb 13.7 (units (unkno wn) date) (13.5-17.5) g/dL unknown) (unknown) (no (unknown) (unknown) History of Present (units (unknown) date) Illness unknown) (unknown) (no (unknown) (unknown) IMPRESSION:? (units (u nknown) date) Nonspecific soft unknown) tissue edema in the right periorbital region.? No (unknown) (no (unknown) (unknown) INDICATIONS:? ? (units (unknown) date) donell orbital edema/ unknown) cellulitis, (unknown) (no (unknown) (unknown) INR (0.9-1.3) (units ( unknown) date) unknown) (unknown) (no (unknown) (unknown) INR 1.4 H (units (unkn own) date) (0.9-1.3) unknown) (unknown) (no (unknown) (unknown) IV NOW ONE (units (unk nown) date) unknown) (unknown) (no (unknown) (unknown) Image quality:? (units (unknown) date) Excellent.? unknown) (unknown) (no (unknown) (unknown) Imaging Data (units (u nknown) date) unknown) (unknown) (no (unknown) (unknown) Initial Vital (units ( unknown) date) Signs unknown) (unknown) (no (unknown) (unknown) Initial Vital (units ( unknown) date) Signs: unknown) (unknown) (no (unknown) (unknown) Instructions: DI (units (unknown) date) for Cellulitis -- unknown) Adult (unknown) (no (unknown) (unknown) [facility] (units (unknown) date) [address] [place] [address] unknown) [place] [address] (unknown) (no (unknown) (unknown) Lab Data (units (unkno wn) date) unknown) (unknown) (no (unknown) (unknown) Lab Results (units (un known) date) unknown) (unknown) (no (unknown) (unknown) Labs: (units (unkno wn) date) unknown) (unknown) (no (unknown) (unknown) Lactate (0.7-2.1) (units (unknown) date) mmol/L unknown) (unknown) (no (unknown) (unknown) Lactate (Lactic (units (unknown) date) Acid) Stat unknown) (unknown) (no (unknown) (unknown) Lactate 2.8 H (units ( unknown) date) (0.7-2.1) mmol/L unknown) (unknown) (no (unknown) (unknown) Last Admin: (units (un known) date) 10/22/22 19:17 unknown) Dose: 1,000 mls/hr (unknown) (no (unknown) (unknown) Last Admin: (units (un known) date) 10/22/22 19:41 unknown) Dose: 200 mls/hr (unknown) (no (unknown) (unknown) Limitations: no (units (unknown) date) limitations unknown) (unknown) (no (unknown) (unknown) Lipase (23-300) (units (unknown) date) U/L unknown) (unknown) (no (unknown) (unknown) Lipase 77 (23-300) (units (unknown) date) U/L unknown) (unknown) (no (unknown) (unknown) Lipase Stat (units (un known) date) unknown) (unknown) (no (unknown) (unknown) Loc: ED (units (unkno wn) date) unknown) (unknown) (no (unknown) (unknown) Lymph # (Auto) (units (unknown) date) (9335-0838) /uL unknown) (unknown) (no (unknown) (unknown) Lymph # (Auto) (units (unknown) date) 1300 (0336-2825) unknown) /uL (unknown) (no (unknown) (unknown) Lymph % (Auto) (units (unknown) date) (25-40) % unknown) (unknown) (no (unknown) (unknown) Lymph % (Auto) (units (unknown) date) 11.2 L (25-40) % unknown) (unknown) (no (unknown) (unknown) MCH (26-34) PG (units (unknown) date) unknown) (unknown) (no (unknown) (unknown) MCH 30.1 (26-34) (units (unknown) date) PG unknown) (unknown) (no (unknown) (unknown) MCHC (30-36) % (units (unknown) date) unknown) (unknown) (no (unknown) (unknown) MCHC 34.6 (30-36) (units (unknown) date) % unknown) (unknown) (no (unknown) (unknown) MCV (80-100) fL (units (unknown) date) unknown) (unknown) (no (unknown) (unknown) MCV 87.1 (80-100) (units (unknown) date) fL unknown) (unknown) (no (unknown) (unknown) MDM - (units (unkno wn) date) Skin/Abscess/Foreig unknown) n Bdy (unknown) (no (unknown) (unknown) MDM Narrative (units ( unknown) date) unknown) (unknown) (no (unknown) (unknown) MR#: [id number] (units (unknown) date) unknown) (unknown) (no (unknown) (unknown) MUSCULOSKELETAL: (units (unknown) date) Denies extremity unknown) pain, injury (unknown) (no (unknown) (unknown) Medical History (units (unknown) date) (Reviewed 10/22/22 unknown) @ 19:27 by Silvia Langston DO) (unknown) (no (unknown) (unknown) Medical decision (units (unknown) date) making narrative: unknown) (unknown) (no (unknown) (unknown) Medication (units (unk nown) date) Instructions unknown) Recorded (unknown) (no (unknown) (unknown) Mode of arrival: (units (unknown) date) Ambulatory unknown) (unknown) (no (unknown) (unknown) [place] # (Auto) (units ( unknown) date) (0-900) /uL unknown) (unknown) (no (unknown) (unknown) [place] # (Auto) 800 (units (unknown) date) (0-900) /uL unknown) (unknown) (no (unknown) (unknown) [place] % (Auto) (units ( unknown) date) (3-14) % unknown) (unknown) (no (unknown) (unknown) [place] % (Auto) 7.2 (units (unknown) date) (3-14) % unknown) (unknown) (no (unknown) (unknown) NEUROLOGIC: Denies (units (unknown) date) weakness, unknown) dizziness, headache, numbness (unknown) (no (unknown) (unknown) NEUROLOGICAL: (units ( unknown) date) Alert and oriented unknown) x4 (unknown) (no (unknown) (unknown) Narrative: (units (unk nown) date) unknown) (unknown) (no (unknown) (unknown) Neut # (Auto) (units ( unknown) date) (4901-7773) /uL unknown) (unknown) (no (unknown) (unknown) Neut # (Auto) 9100 (units (unknown) date) H (5911-9024) /uL unknown) (unknown) (no (unknown) (unknown) Neut % (Auto) (units ( unknown) date) (50-75) % unknown) (unknown) (no (unknown) (unknown) Neut % (Auto) 81.2 (units (unknown) date) H (50-75) % unknown) (unknown) (no (unknown) (unknown) New (units (unkno wn) date) unknown) (unknown) (no (unknown) (unknown) No Action (units (unkn own) date) unknown) (unknown) (no (unknown) (unknown) No Known Drug (units ( unknown) date) Allergies Allergy unknown) Verified 04/07/21 19:37 (unknown) (no (unknown) (unknown) ONE (units (unkno wn) date) unknown) (unknown) (no (unknown) (unknown) Ordered: (units (unkno wn) date) unknown) (unknown) (no (unknown) (unknown) Ordering Provider: (units (unknown) date) Cricket Carbajal MD unknown) (unknown) (no (unknown) (unknown) Orders (units (unkno wn) date) unknown) (unknown) (no (unknown) (unknown) Oxygen Delivery (units (unknown) date) Method 10/22/22 unknown) 16:46 (unknown) (no (unknown) (unknown) Oxygen Delivery (units (unknown) date) Method Room Air unknown) (unknown) (no (unknown) (unknown) PROCEDURE:? CT (units (unknown) date) FACIAL BONES W CON unknown) (unknown) (no (unknown) (unknown) PT (10.1-12.7) (units (unknown) date) SECONDS unknown) (unknown) (no (unknown) (unknown) PT 16.3 H (units (unkn own) date) (10.1-12.7) SECONDS unknown) (unknown) (no (unknown) (unknown) Palpitations (units (u nknown) date) unknown) (unknown) (no (unknown) (unknown) Partial (units (unkno wn) date) Thromboplastin Time unknown) Stat (unknown) (no (unknown) (unknown) Patient (units (unkno wn) date) Disposition: Home unknown) (unknown) (no (unknown) (unknown) Patient History (units (unknown) date) unknown) (unknown) (no (unknown) (unknown) Patient has a (units ( unknown) date) mildly elevated unknown) lactate of 2.8 mildly cardiac of 102 of (unknown) (no (unknown) (unknown) Patient is a (units (u nknown) date) 21-year-old male unknown) history of ethanol abuse she smokes regularly (unknown) (no (unknown) (unknown) Patient overall is (units (unknown) date) not septic obvious unknown) facial cellulitis. Given 1st dose of (unknown) (no (unknown) (unknown) Patient: (units (unkno wn) date) Rodolfo Ackerman unknown) MR#: [id number] (unknown) (no (unknown) (unknown) Patient: (units (unkno wn) date) Rodolfo Ackerman unknown) (unknown) (no (unknown) (unknown) Plt Count (units (unkn own) date) (150-400) X103/uL unknown) (unknown) (no (unknown) (unknown) Plt Count 246 (units ( unknown) date) (150-400) X103/uL unknown) (unknown) (no (unknown) (unknown) Postsurgical (units (un known) date) changes in the unknown) cervical spine are partially imaged.? Dental disease (unknown) (no (unknown) (unknown) Potassium (units (unkn own) date) (3.4-5.1) mmol/L unknown) (unknown) (no (unknown) (unknown) Potassium 3.5 (units ( unknown) date) (3.4-5.1) mmol/L unknown) (unknown) (no (unknown) (unknown) Prescriptions: (units (unknown) date) unknown) (unknown) (no (unknown) (unknown) Previous Rx's (units ( unknown) date) unknown) (unknown) (no (unknown) (unknown) Procalcitonin (units ( unknown) date) (<0.5) ng/mL unknown) (unknown) (no (unknown) (unknown) Procalcitonin 0.13 (units (unknown) date) (<0.5) ng/mL unknown) (unknown) (no (unknown) (unknown) Procalcitonin Stat (units (unknown) date) unknown) (unknown) (no (unknown) (unknown) Procedure: CT (units ( unknown) date) facial bones w con unknown) (unknown) (no (unknown) (unknown) Prothrombin Time (units (unknown) date) INR Stat unknown) (unknown) (no (unknown) (unknown) Pulse Oximetry 97 (units (unknown) date) 10/22/22 16:46 unknown) (unknown) (no (unknown) (unknown) Pulse Oximetry 97 (units (unknown) date) unknown) (unknown) (no (unknown) (unknown) Pulse Rate 102 H (units (unknown) date) 10/22/22 16:46 unknown) (unknown) (no (unknown) (unknown) Pulse Rate 102 H (units (unknown) date) unknown) (unknown) (no (unknown) (unknown) RBC (4.5-5.9) (units ( unknown) date) X106/uL unknown) (unknown) (no (unknown) (unknown) RBC 4.56 (4.5-5.9) (units (unknown) date) X106/uL unknown) (unknown) (no (unknown) (unknown) RDW (11.6-14.8) % (units (unknown) date) unknown) (unknown) (no (unknown) (unknown) RDW 13.1 (units (unkno wn) date) (11.6-14.8) % unknown) (unknown) (no (unknown) (unknown) RESPIRATORY: (units (u nknown) date) Breath sounds equal unknown) bilaterally, no wheezes rales or rhonchi. (unknown) (no (unknown) (unknown) RESPIRATORY: (units (u nknown) date) Denies dyspnea, unknown) cough, wheezing (unknown) (no (unknown) (unknown) Radiologist's (units ( unknown) date) Impression: unknown) (unknown) (no (unknown) (unknown) Related Data (units (u nknown) date) unknown) (unknown) (no (unknown) (unknown) Respiratory Rate (units (unknown) date) 18 10/22/22 16:46 unknown) (unknown) (no (unknown) (unknown) Respiratory Rate (units (unknown) date) 18 unknown) (unknown) (no (unknown) (unknown) Result diagrams: (units (unknown) date) unknown) (unknown) (no (unknown) (unknown) Review of Systems (units (unknown) date) unknown) (unknown) (no (unknown) (unknown) SKIN: Facial (units (u nknown) date) erythema over unknown) bridge of nose mostly on the right side inferior (unknown) (no (unknown) (unknown) SKIN: See HPI (units ( unknown) date) unknown) (unknown) (no (unknown) (unknown) Signed By: (units (unk nown) date) unknown) (unknown) (no (unknown) (unknown) Signed (units (unkno wn) date) unknown) (unknown) (no (unknown) (unknown) Sinus tachycardia (units (unknown) date) unknown) (unknown) (no (unknown) (unknown) Sinuses:? (units (unkn own) date) Paranasal sinuses unknown) are aerated without fluid levels, mucosal (unknown) (no (unknown) (unknown) Smoking Status: (units (unknown) date) Current every day unknown) smoker (unknown) (no (unknown) (unknown) Social History (units (unknown) date) (Reviewed 10/22/22 unknown) @ 19:27 by Silvia Langston DO) (unknown) (no (unknown) (unknown) Sodium (137-145) (units (unknown) date) mmol/L unknown) (unknown) (no (unknown) (unknown) Sodium 133 L (units (u nknown) date) (137-145) mmol/L unknown) (unknown) (no (unknown) (unknown) Sodium Chloride (units (unknown) date) (Normal Saline unknown) 0.9%) 1,000 mls @ 1,000 mls/hr IV BOLUS ONE (unknown) (no (unknown) (unknown) Soft tissues:? (units ( unknown) date) Nonspecific soft unknown) tissue edema is seen in the subcutaneous tissues (unknown) (no (unknown) (unknown) Source: patient (units (unknown) date) unknown) (unknown) (no (unknown) (unknown) Stated complaint: (units (unknown) date) Facial swelling unknown) (unknown) (no (unknown) (unknown) Stop: 10/22/22 (units (unknown) date) 18:21 unknown) (unknown) (no (unknown) (unknown) Stop: 10/22/22 (units (unknown) date) 19:21 unknown) (unknown) (no (unknown) (unknown) Stop: 10/22/22 (units (unknown) date) 20:19 unknown) (unknown) (no (unknown) (unknown) Stop: 10/22/22 (units (unknown) date) 20:20 unknown) (unknown) (no (unknown) (unknown) Substance Use (units ( unknown) date) Type: marijuana, unknown) heroin, methamphetamine and other (unknown) (no (unknown) (unknown) TECHNIQUE:? (units (un known) date) unknown) (unknown) (no (unknown) (unknown) Temperature 98.7 F (units (unknown) date) 10/22/22 16:46 unknown) (unknown) (no (unknown) (unknown) Temperature 98.7 F (units (unknown) date) unknown) (unknown) (no (unknown) (unknown) Time Seen by (units (u nknown) date) Provider: 10/22/22 unknown) 19:10 (unknown) (no (unknown) (unknown) Total Bilirubin (units (unknown) date) (0.2-1.3) mg/dL unknown) (unknown) (no (unknown) (unknown) Total Bilirubin (units (unknown) date) 0.7 (0.2-1.3) mg/dL unknown) (unknown) (no (unknown) (unknown) Total Protein (units ( unknown) date) (6.3-8.2) g/dL unknown) (unknown) (no (unknown) (unknown) Total Protein 7.6 (units (unknown) date) (6.3-8.2) g/dL unknown) (unknown) (no (unknown) (unknown) Trimethoprim/Sulfa (units (unknown) date) methoxazole unknown) (Trimeth/Sulfa 160/800 (Ds) Tablet) 1 tab PO NOW (unknown) (no (unknown) (unknown) Unasyn, however he (units (unknown) date) does not want to unknown) stay for the vancomycin. He is not septic (unknown) (no (unknown) (unknown) Vancomycin HCl (units (unknown) date) (Vancomycin) 750 mg unknown) in 150 mls @ 150 mls/hr IV NOW ONE (unknown) (no (unknown) (unknown) Vascular:? (units (unk nown) date) Visualized vascular unknown) structures appear patent throughout.? Bony (unknown) (no (unknown) (unknown) Visualized (units (unk nown) date) portions of the unknown) skull base and auditory canals also appear normal.? (unknown) (no (unknown) (unknown) Vital Signs - 8 hr (units (unknown) date) unknown) (unknown) (no (unknown) (unknown) Vital Signs (units (un known) date) unknown) (unknown) (no (unknown) (unknown) Vital signs: (units (u nknown) date) unknown) (unknown) (no (unknown) (unknown) WBC (4.5-11.0) (units (unknown) date) X103/uL unknown) (unknown) (no (unknown) (unknown) WBC 11.2 H (units (unk nown) date) (4.5-11.0) X103/uL unknown) (unknown) (no (unknown) (unknown) Will put him on (units (unknown) date) Augmentin and unknown) Bactrim. (unknown) (no (unknown) (unknown) [Embedded Image (units (unknown) date) Not Available] unknown) (unknown) (no (unknown) (unknown) alcohol intake (units (unknown) date) frequency: 0-2 unknown) drinks per day (unknown) (no (unknown) (unknown) amoxicillin 875 (units (unknown) date) mg-potassium 1 tab unknown) PO BID #14 tabs 10/22/22 (unknown) (no (unknown) (unknown) amoxicillin-pot (units (unknown) date) clavulanate 875-125 unknown) mg tablet (unknown) (no (unknown) (unknown) and/or (units (unkno wn) date) unknown) (unknown) (no (unknown) (unknown) at the (units (unkno wn) date) unknown) (unknown) (no (unknown) (unknown) at this time, (units ( unknown) date) sinusitis, unknown) (unknown) (no (unknown) (unknown) awake alert. Do (units (unknown) date) not think orbital unknown) cellulitis at this time he has minimal pain. (unknown) (no (unknown) (unknown) clavulanate 125 mg (units (unknown) date) tablet unknown) (unknown) (no (unknown) (unknown) collection or (units ( unknown) date) abscess.? No unknown) enlarged lymph nodes.? (unknown) (no (unknown) (unknown) destruction.? (units ( unknown) date) unknown) (unknown) (no (unknown) (unknown) difficulty seeing (units (unknown) date) feels like his nose unknown) is congested. He denies any dental pain. (unknown) (no (unknown) (unknown) eye fever or any (units (unknown) date) new, worsening or unknown) concerning symptoms (unknown) (no (unknown) (unknown) fluoxetine 20 mg (units (unknown) date) capsule 20 mg PO unknown) DAILY #30 caps 04/07/21 (unknown) (no (unknown) (unknown) fluoxetine 20 mg (units (unknown) date) capsule unknown) (unknown) (no (unknown) (unknown) foramina and (units (u nknown) date) canals appear unknown) normal.? (unknown) (no (unknown) (unknown) from the (units (unkno wn) date) unknown) (unknown) (no (unknown) (unknown) guarding or (units (un known) date) rebound. unknown) (unknown) (no (unknown) (unknown) happened before. (units (unknown) date) unknown) (unknown) (no (unknown) (unknown) intact (units (unkno wn) date) unknown) (unknown) (no (unknown) (unknown) intraorbital (units (u nknown) date) edema.? No focal unknown) fluid collection or abscess. (unknown) (no (unknown) (unknown) is (units (unkno wn) date) unknown) (unknown) (no (unknown) (unknown) kV according to (units (unknown) date) patient size.? unknown) (unknown) (no (unknown) (unknown) leukocytosis of (units (unknown) date) 11.2 an obvious unknown) cellulitis on his face. No airway compromise. (unknown) (no (unknown) (unknown) membranes (units (unkn own) date) unknown) (unknown) (no (unknown) (unknown) mg-trimethoprim (units (unknown) date) 160 mg tablet unknown) (unknown) (no (unknown) (unknown) mid-neck to the (units (unknown) date) frontal sinuses, unknown) with coronal and sagittal reformats.? For (unknown) (no (unknown) (unknown) mucoceles.? (units (un known) date) Mastoid air cells unknown) are aerated.? (unknown) (no (unknown) (unknown) nose beginning to (units (unknown) date) go up into the unknown) orbital area and forehead. No eye pain no (unknown) (no (unknown) (unknown) noted. (units (unkno wn) date) unknown) (unknown) (no (unknown) (unknown) on the area that (units (unknown) date) will also help. 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 Mostly over the bridge of (unknown) (no (unknown) (unknown) propranolol 10 mg (units (unknown) date) tablet 10 mg PO BID unknown) #30 tabs 04/07/21 (unknown) (no (unknown) (unknown) propranolol 10 mg (units (unknown) date) tablet unknown) (unknown) (no (unknown) (unknown) radiation dose (units (unknown) date) unknown) (unknown) (no (unknown) (unknown) reduction, the (units ( unknown) date) following was unknown) used:? automated exposure control, adjustment of mA (unknown) (no (unknown) (unknown) right face just (units (unknown) date) inferior to the unknown) orbit.? No intraorbital edema is seen.? No fluid (unknown) (no (unknown) (unknown) sulfamethoxazole (units (unknown) date) 800 1 tab PO BID 7 unknown) days #14 tabs 10/22/22 (unknown) (no (unknown) (unknown) sulfamethoxazole-t (units (unknown) date) rimethoprim unknown) [Bactrim DS] 800-160 mg tablet (unknown) (no (unknown) (unknown) thickening, or (units (unknown) date) unknown) (unknown) (no (unknown) (unknown) tobacco type: (units ( unknown) date) cigarettes unknown) (unknown) (no (unknown) (unknown) tomorrow. (units (unkn own) date) unknown) (unknown) (no (unknown) (unknown) vascular (units (unkno wn) date) unknown) Result panel 92 (unknown) (no (unknown) (unknown) (no value) (units (unk nown) date) unknown) (unknown) (no (unknown) (unknown) <Electronically (units (unknown) date) signed by Silvia Langston D.O.> (unknown) (no (unknown) (unknown) (Bactrim DS) (units (u nknown) date) unknown) (unknown) (no (unknown) (unknown) *Continue to take (units (unknown) date) medications as unknown) directed--> sent to [facility] (unknown) (no (unknown) (unknown) *Follow up with (units (unknown) date) your primary care unknown) provider in 2-3 days or call [phone] (unknown) (no (unknown) (unknown) *Return to ER if (units (unknown) date) you should have unknown) increasing redness eye pain inability to open (unknown) (no (unknown) (unknown) *What to do: Try (units (unknown) date) to stay elevated or unknown) help with the swelling, may keep some ice (unknown) (no (unknown) (unknown) *You have been (units (unknown) date) diagnosed with unknown) cellulitis (unknown) (no (unknown) (unknown) [id number] (units (unkno wn) date) unknown) (unknown) (no (unknown) (unknown) 1 tab PO BID 7 (units (unknown) date) Days Qty: 14 0RF unknown) (unknown) (no (unknown) (unknown) 1 tab PO BID Qty: (units (unknown) date) 14 0RF unknown) (unknown) (no (unknown) (unknown) 10 mg PO BID Qty: (units (unknown) date) 30 0RF unknown) (unknown) (no (unknown) (unknown) 10/22/22 10/22/22 (units (unknown) date) 10/22/22 unknown) Range/Units (unknown) (no (unknown) (unknown) 10/22/22 17:00 (units (unknown) date) unknown) (unknown) (no (unknown) (unknown) 10/22/22 19:16 (units (unknown) date) unknown) (unknown) (no (unknown) (unknown) 10/22/22 (units (unkno wn) date) Range/Units unknown) (unknown) (no (unknown) (unknown) 10/22/22 (units (unkno wn) date) unknown) (unknown) (no (unknown) (unknown) 10/23/22 0324 (units ( unknown) date) unknown) (unknown) (no (unknown) (unknown) 16:46 (units (unkno wn) date) unknown) (unknown) (no (unknown) (unknown) 17:00 17:00 17:00 (units (unknown) date) unknown) (unknown) (no (unknown) (unknown) 17:00 (units (unkno wn) date) unknown) (unknown) (no (unknown) (unknown) 20 mg PO DAILY (units (unknown) date) Qty: 30 0RF unknown) (unknown) (no (unknown) (unknown) 8 point review of (units (unknown) date) systems is negative unknown) except for those stated above and HPI (unknown) (no (unknown) (unknown) ? (units (unkno wn) date) unknown) (unknown) (no (unknown) (unknown) ABDOMEN: Soft, (units (unknown) date) nontender. unknown) Normoactive bowel sounds all 4 quadrants. No (unknown) (no (unknown) (unknown) ALT (<50) IU/L (units (unknown) date) unknown) (unknown) (no (unknown) (unknown) ALT 22 (<50) IU/L (units (unknown) date) unknown) (unknown) (no (unknown) (unknown) APTT (26-36) (units (u nknown) date) SECONDS unknown) (unknown) (no (unknown) (unknown) APTT 27 (26-36) (units (unknown) date) SECONDS unknown) (unknown) (no (unknown) (unknown) AST (17-59) IU/L (units (unknown) date) unknown) (unknown) (no (unknown) (unknown) AST 32 (17-59) (units (unknown) date) IU/L unknown) (unknown) (no (unknown) (unknown) Accession Number: (units (unknown) date) [id number] ?? unknown) (unknown) (no (unknown) (unknown) Acct:[id number] (units (unknown) date) unknown) (unknown) (no (unknown) (unknown) Activity (units (unkno wn) date) Restrictions/Additi unknown) onal Instructions: (unknown) (no (unknown) (unknown) Admin: 10/22/22 (units (unknown) date) 19:17 Dose: 1,000 unknown) mls/hr (unknown) (no (unknown) (unknown) Admin: 10/22/22 (units (unknown) date) 19:41 Dose: 200 unknown) mls/hr (unknown) (no (unknown) (unknown) After the (units (unkno wn) date) administration of unknown) intravenous contrast, 2.5 mm axial sections acquired (unknown) (no (unknown) (unknown) Age/Sex: 21 / M (units (unknown) date) unknown) (unknown) (no (unknown) (unknown) Albumin (3.5-5.0) (units (unknown) date) g/dL unknown) (unknown) (no (unknown) (unknown) Albumin 4.3 (units (un known) date) (3.5-5.0) g/dL unknown) (unknown) (no (unknown) (unknown) Albumin/Globulin (units (unknown) date) Ratio (1.0-2.8) unknown) (unknown) (no (unknown) (unknown) Albumin/Globulin (units (unknown) date) Ratio 1.3 (1.0-2.8) unknown) (unknown) (no (unknown) (unknown) Alkaline (units (unkno wn) date) Phosphatase unknown) (38-126) U/L (unknown) (no (unknown) (unknown) Alkaline (units (unkno wn) date) Phosphatase 104 unknown) (38-126) U/L (unknown) (no (unknown) (unknown) Allergies (units (unkn own) date) unknown) (unknown) (no (unknown) (unknown) Allergy/AdvReac (units (unknown) date) Type Severity unknown) Reaction Status Date / Time (unknown) (no (unknown) (unknown) Ampicillin (units (unk nown) date) Sodium/Sulbactam unknown) (Sodium 3 gm/ Sodium Chloride) 100 mls @ 200 mls/hr (unknown) (no (unknown) (unknown) Anxiety (units (unkno wn) date) unknown) (unknown) (no (unknown) (unknown) Approved by: (units (u nknown) date) da Ballesteros M.D. on 10/22/2022 at 20:04? (unknown) (no (unknown) (unknown) At this time (units (u nknown) date) differential unknown) includes orbital cellulitis , preseptal cellulitis (unknown) (no (unknown) (unknown) Augmentin 875 (units ( unknown) date) twice a day for 7 unknown) days (unknown) (no (unknown) (unknown) BUN (9-20) mg/dL (units (unknown) date) unknown) (unknown) (no (unknown) (unknown) BUN 12 (9-20) (units ( unknown) date) mg/dL unknown) (unknown) (no (unknown) (unknown) BUN/Creatinine (units (unknown) date) Ratio (6-22) unknown) (unknown) (no (unknown) (unknown) BUN/Creatinine (units (unknown) date) Ratio 21.8 (6-22) unknown) (unknown) (no (unknown) (unknown) Bactrim 1 tablet (units (unknown) date) twice a day for 7 unknown) days (unknown) (no (unknown) (unknown) Baso # (Auto) (units ( unknown) date) (0-100) /uL unknown) (unknown) (no (unknown) (unknown) Baso # (Auto) 0 (units (unknown) date) (0-100) /uL unknown) (unknown) (no (unknown) (unknown) Baso % (Auto) (units ( unknown) date) (0-2) % unknown) (unknown) (no (unknown) (unknown) Baso % (Auto) 0.3 (units (unknown) date) (0-2) % unknown) (unknown) (no (unknown) (unknown) Blood Culture Stat (units (unknown) date) unknown) (unknown) (no (unknown) (unknown) Blood Pressure (units (unknown) date) 130/59 L 10/22/22 unknown) 16:46 (unknown) (no (unknown) (unknown) Blood Pressure (units (unknown) date) 130/59 L unknown) (unknown) (no (unknown) (unknown) Bones:? Facial (units (unknown) date) bones appear unknown) intact, without fractures, erosions, or (unknown) (no (unknown) (unknown) CARDIOVASCULAR: (units (unknown) date) Denies chest pain, unknown) palpitations (unknown) (no (unknown) (unknown) CARDIOVASCULAR: (units (unknown) date) Regular rate and unknown) rhythm without murmurs, rubs or gallops. (unknown) (no (unknown) (unknown) COMPARISON:? None. (units (unknown) date) unknown) (unknown) (no (unknown) (unknown) CT Scan Report (units (unknown) date) unknown) (unknown) (no (unknown) (unknown) CT facial: (units (unk nown) date) unknown) (unknown) (no (unknown) (unknown) Calcium (8.4-10.2) (units (unknown) date) mg/dL unknown) (unknown) (no (unknown) (unknown) Calcium 9.2 (units (un known) date) (8.4-10.2) mg/dL unknown) (unknown) (no (unknown) (unknown) Carbon Dioxide (units (unknown) date) (22-32) mmol/L unknown) (unknown) (no (unknown) (unknown) Carbon Dioxide 26 (units (unknown) date) (22-32) mmol/L unknown) (unknown) (no (unknown) (unknown) Cellulitis (units (unk nown) date) unknown) (unknown) (no (unknown) (unknown) Chief complaint: (units (unknown) date) Skin/Abscess/Foreig unknown) n Body (unknown) (no (unknown) (unknown) Chloride (98-107) (units (unknown) date) mmol/L unknown) (unknown) (no (unknown) (unknown) Chloride 95 L (units ( unknown) date) (98-107) mmol/L unknown) (unknown) (no (unknown) (unknown) Clinical (units (unkno wn) date) Impression: unknown) (unknown) (no (unknown) (unknown) Course (units (unkno wn) date) unknown) (unknown) (no (unknown) (unknown) Creatinine (units (unk nown) date) (0.66-1.25) mg/dL unknown) (unknown) (no (unknown) (unknown) Creatinine 0.55 L (units (unknown) date) (0.66-1.25) mg/dL unknown) (unknown) (no (unknown) (unknown) : 2000 (units (unknown) date) Acct:[id number] unknown) (unknown) (no (unknown) (unknown) : 2000 (units (unknown) date) unknown) (unknown) (no (unknown) (unknown) Date of Service: (units (unknown) date) 10/22/22 unknown) (unknown) (no (unknown) (unknown) Departure (units (unkn own) date) unknown) (unknown) (no (unknown) (unknown) Depression (units (unk nown) date) unknown) (unknown) (no (unknown) (unknown) Discharge Plan (units (unknown) date) unknown) (unknown) (no (unknown) (unknown) Discontinued (units (u nknown) date) Medications unknown) (unknown) (no (unknown) (unknown) Documented By: KH (units (unknown) date) unknown) (unknown) (no (unknown) (unknown) Documented By: KLS (units (unknown) date) unknown) (unknown) (no (unknown) (unknown) ED Orders (units (unkn own) date) unknown) (unknown) (no (unknown) (unknown) ER Physician: (units ( unknown) date) Silvia Langston D.O. unknown) (unknown) (no (unknown) (unknown) EXTREMITIES: (units (u nknown) date) Normal range of unknown) motion, no clubbing or edema. Neurovascularly (unknown) (no (unknown) (unknown) Emergency Report (units (unknown) date) unknown) (unknown) (no (unknown) (unknown) Eos # (Auto) (units (u nknown) date) (0-450) /uL unknown) (unknown) (no (unknown) (unknown) Eos # (Auto) 0 (units (unknown) date) (0-450) /uL unknown) (unknown) (no (unknown) (unknown) Eos % (Auto) (2-4) (units (unknown) date) % unknown) (unknown) (no (unknown) (unknown) Eos % (Auto) 0.1 L (units (unknown) date) (2-4) % unknown) (unknown) (no (unknown) (unknown) Estimated GFR > 60 (units (unknown) date) (>60) mL/min unknown) (unknown) (no (unknown) (unknown) Estimated GFR (units ( unknown) date) (>60) mL/min unknown) (unknown) (no (unknown) (unknown) Exam (units (unkno wn) date) unknown) (unknown) (no (unknown) (unknown) FINDINGS:? (units (unk nown) date) unknown) (unknown) (no (unknown) (unknown) GASTROINTESTINAL: (units (unknown) date) Denies nausea, unknown) vomiting (unknown) (no (unknown) (unknown) GENERAL: Alert (units (unknown) date) thin 21-year-old unknown) male (unknown) (no (unknown) (unknown) GENERAL: Denies (units (unknown) date) chills,fever unknown) (unknown) (no (unknown) (unknown) General (units (unkno wn) date) unknown) (unknown) (no (unknown) (unknown) Globulin (1.7-4.1) (units (unknown) date) g/dL unknown) (unknown) (no (unknown) (unknown) Globulin 3.3 (units (u nknown) date) (1.7-4.1) g/dL unknown) (unknown) (no (unknown) (unknown) Glucose (70-100) (units (unknown) date) mg/dL unknown) (unknown) (no (unknown) (unknown) Glucose 169 H (units ( unknown) date) (70-100) mg/dL unknown) (unknown) (no (unknown) (unknown) HEENT: Denies (units ( unknown) date) throat pain unknown) (unknown) (no (unknown) (unknown) HEENT: Head (units (un known) date) atraumatic,EOMI, unknown) pupils reactive, face symmetric, moist mucous (unknown) (no (unknown) (unknown) HPI - (units (unkno wn) date) Skin/Abscess/Foreig unknown) n Bdy (unknown) (no (unknown) (unknown) HPI narrative: (units (unknown) date) unknown) (unknown) (no (unknown) (unknown) Hct (41-53) % (units ( unknown) date) unknown) (unknown) (no (unknown) (unknown) Hct 39.7 L (41-53) (units (unknown) date) % unknown) (unknown) (no (unknown) (unknown) He does not use IV (units (unknown) date) drugs. He has no unknown) difficulty breathing or speaking. Never (unknown) (no (unknown) (unknown) He is given IV (units (unknown) date) fluids antibiotics unknown) in the ED. CT confirms probable cellulitis. (unknown) (no (unknown) (unknown) Hgb (13.5-17.5) (units (unknown) date) g/dL unknown) (unknown) (no (unknown) (unknown) Hgb 13.7 (units (unkno wn) date) (13.5-17.5) g/dL unknown) (unknown) (no (unknown) (unknown) History of Present (units (unknown) date) Illness unknown) (unknown) (no (unknown) (unknown) IMPRESSION:? (units (u nknown) date) Nonspecific soft unknown) tissue edema in the right periorbital region.? No (unknown) (no (unknown) (unknown) INDICATIONS:? ? (units (unknown) date) donell orbital edema/ unknown) cellulitis, (unknown) (no (unknown) (unknown) INR (0.9-1.3) (units ( unknown) date) unknown) (unknown) (no (unknown) (unknown) INR 1.4 H (units (unkn own) date) (0.9-1.3) unknown) (unknown) (no (unknown) (unknown) IV NOW ONE (units (unk nown) date) unknown) (unknown) (no (unknown) (unknown) Image quality:? (units (unknown) date) Excellent.? unknown) (unknown) (no (unknown) (unknown) Imaging Data (units (u nknown) date) unknown) (unknown) (no (unknown) (unknown) Initial Vital (units ( unknown) date) Signs unknown) (unknown) (no (unknown) (unknown) Initial Vital (units ( unknown) date) Signs: unknown) (unknown) (no (unknown) (unknown) Instructions: DI (units (unknown) date) for Cellulitis -- unknown) Adult (unknown) (no (unknown) (unknown) [facility] (units (unknown) date) [address] unknown) [place] [address] (unknown) (no (unknown) (unknown) Lab Data (units (unkno wn) date) unknown) (unknown) (no (unknown) (unknown) Lab Results (units (un known) date) unknown) (unknown) (no (unknown) (unknown) Labs: (units (unkno wn) date) unknown) (unknown) (no (unknown) (unknown) Lactate (0.7-2.1) (units (unknown) date) mmol/L unknown) (unknown) (no (unknown) (unknown) Lactate 2.8 H (units ( unknown) date) (0.7-2.1) mmol/L unknown) (unknown) (no (unknown) (unknown) Last Admin: (units (un known) date) 10/22/22 20:30 unknown) Dose: Not Given (unknown) (no (unknown) (unknown) Last Admin: (units (un known) date) 10/22/22 20:32 unknown) Dose: 1 tab (unknown) (no (unknown) (unknown) Last Infusion: (units (unknown) date) 10/22/22 20:31 unknown) Dose: 0 mls/hr (unknown) (no (unknown) (unknown) Limitations: no (units (unknown) date) limitations unknown) (unknown) (no (unknown) (unknown) Lipase (23-300) (units (unknown) date) U/L unknown) (unknown) (no (unknown) (unknown) Lipase 77 (23-300) (units (unknown) date) U/L unknown) (unknown) (no (unknown) (unknown) Loc: ED (units (unkno wn) date) unknown) (unknown) (no (unknown) (unknown) Lymph # (Auto) (units (unknown) date) (4074-2697) /uL unknown) (unknown) (no (unknown) (unknown) Lymph # (Auto) (units (unknown) date) 1300 (6126-1887) unknown) /uL (unknown) (no (unknown) (unknown) Lymph % (Auto) (units (unknown) date) (25-40) % unknown) (unknown) (no (unknown) (unknown) Lymph % (Auto) (units (unknown) date) 11.2 L (25-40) % unknown) (unknown) (no (unknown) (unknown) MCH (26-34) PG (units (unknown) date) unknown) (unknown) (no (unknown) (unknown) MCH 30.1 (26-34) (units (unknown) date) PG unknown) (unknown) (no (unknown) (unknown) MCHC (30-36) % (units (unknown) date) unknown) (unknown) (no (unknown) (unknown) MCHC 34.6 (30-36) (units (unknown) date) % unknown) (unknown) (no (unknown) (unknown) MCV (80-100) fL (units (unknown) date) unknown) (unknown) (no (unknown) (unknown) MCV 87.1 (80-100) (units (unknown) date) fL unknown) (unknown) (no (unknown) (unknown) MDM - (units (unkno wn) date) Skin/Abscess/Foreig unknown) n Bdy (unknown) (no (unknown) (unknown) MDM Narrative (units ( unknown) date) unknown) (unknown) (no (unknown) (unknown) MR#: [id number] (units (unknown) date) unknown) (unknown) (no (unknown) (unknown) MUSCULOSKELETAL: (units (unknown) date) Denies extremity unknown) pain, injury (unknown) (no (unknown) (unknown) Medical History (units (unknown) date) (Reviewed 10/22/22 unknown) @ 19:27 by Silvia Langston DO) (unknown) (no (unknown) (unknown) Medical decision (units (unknown) date) making narrative: unknown) (unknown) (no (unknown) (unknown) Medication (units (unk nown) date) Instructions unknown) Recorded (unknown) (no (unknown) (unknown) Mode of arrival: (units (unknown) date) Ambulatory unknown) (unknown) (no (unknown) (unknown) [place] # (Auto) (units ( unknown) date) (0-900) /uL unknown) (unknown) (no (unknown) (unknown) [place] # (Auto) 800 (units (unknown) date) (0-900) /uL unknown) (unknown) (no (unknown) (unknown) [place] % (Auto) (units ( unknown) date) (3-14) % unknown) (unknown) (no (unknown) (unknown) [place] % (Auto) 7.2 (units (unknown) date) (3-14) % unknown) (unknown) (no (unknown) (unknown) NEUROLOGIC: Denies (units (unknown) date) weakness, unknown) dizziness, headache, numbness (unknown) (no (unknown) (unknown) NEUROLOGICAL: (units ( unknown) date) Alert and oriented unknown) x4 (unknown) (no (unknown) (unknown) Narrative: (units (unk nown) date) unknown) (unknown) (no (unknown) (unknown) Neut # (Auto) (units ( unknown) date) (5564-7149) /uL unknown) (unknown) (no (unknown) (unknown) Neut # (Auto) 9100 (units (unknown) date) H (4560-9218) /uL unknown) (unknown) (no (unknown) (unknown) Neut % (Auto) (units ( unknown) date) (50-75) % unknown) (unknown) (no (unknown) (unknown) Neut % (Auto) 81.2 (units (unknown) date) H (50-75) % unknown) (unknown) (no (unknown) (unknown) New (units (unkno wn) date) unknown) (unknown) (no (unknown) (unknown) No Action (units (unkn own) date) unknown) (unknown) (no (unknown) (unknown) No Known Drug (units ( unknown) date) Allergies Allergy unknown) Verified 04/07/21 19:37 (unknown) (no (unknown) (unknown) ONE (units (unkno wn) date) unknown) (unknown) (no (unknown) (unknown) Ordered: (units (unkno wn) date) unknown) (unknown) (no (unknown) (unknown) Ordering Provider: (units (unknown) date) Cricket Carbajal MD unknown) (unknown) (no (unknown) (unknown) Orders (units (unkno wn) date) unknown) (unknown) (no (unknown) (unknown) Oxygen Delivery (units (unknown) date) Method 12/02/22 unknown) 16:46 (unknown) (no (unknown) (unknown) Oxygen Delivery (units (unknown) date) Method Room Air unknown) (unknown) (no (unknown) (unknown) PROCEDURE:? CT (units (unknown) date) FACIAL BONES W CON unknown) (unknown) (no (unknown) (unknown) PT (10.1-12.7) (units (unknown) date) SECONDS unknown) (unknown) (no (unknown) (unknown) PT 16.3 H (units (unkn own) date) (10.1-12.7) SECONDS unknown) (unknown) (no (unknown) (unknown) Palpitations (units (u nknown) date) unknown) (unknown) (no (unknown) (unknown) Patient (units (unkno wn) date) Disposition: Home unknown) (unknown) (no (unknown) (unknown) Patient History (units (unknown) date) unknown) (unknown) (no (unknown) (unknown) Patient has a (units ( unknown) date) mildly elevated unknown) lactate of 2.8 mildly cardiac of 102 of (unknown) (no (unknown) (unknown) Patient is a (units (u nknown) date) 21-year-old male unknown) 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 Given 1st dose of (unknown) (no (unknown) (unknown) Patient: (units (unkno wn) date) Rodolfo Ackerman unknown) MR#: [id number] (unknown) (no (unknown) (unknown) Patient: (units (unkno wn) date) Rodolfo Ackerman unknown) (unknown) (no (unknown) (unknown) Plt Count (units (unkn own) date) (150-400) X103/uL unknown) (unknown) (no (unknown) (unknown) Plt Count 246 (units ( unknown) date) (150-400) X103/uL unknown) (unknown) (no (unknown) (unknown) Postsurgical (units (un known) date) changes in the unknown) cervical spine are partially imaged.? Dental disease (unknown) (no (unknown) (unknown) Potassium (units (unkn own) date) (3.4-5.1) mmol/L unknown) (unknown) (no (unknown) (unknown) Potassium 3.5 (units ( unknown) date) (3.4-5.1) mmol/L unknown) (unknown) (no (unknown) (unknown) Prescriptions: (units (unknown) date) unknown) (unknown) (no (unknown) (unknown) Previous Rx's (units ( unknown) date) unknown) (unknown) (no (unknown) (unknown) Procalcitonin (units ( unknown) date) (<0.5) ng/mL unknown) (unknown) (no (unknown) (unknown) Procalcitonin 0.13 (units (unknown) date) (<0.5) ng/mL unknown) (unknown) (no (unknown) (unknown) Procedure: CT (units ( unknown) date) facial bones w con unknown) (unknown) (no (unknown) (unknown) Pulse Oximetry 97 (units (unknown) date) 10/22/22 16:46 unknown) (unknown) (no (unknown) (unknown) Pulse Oximetry 97 (units (unknown) date) unknown) (unknown) (no (unknown) (unknown) Pulse Rate 102 H (units (unknown) date) 10/22/22 16:46 unknown) (unknown) (no (unknown) (unknown) Pulse Rate 102 H (units (unknown) date) unknown) (unknown) (no (unknown) (unknown) RBC (4.5-5.9) (units ( unknown) date) X106/uL unknown) (unknown) (no (unknown) (unknown) RBC 4.56 (4.5-5.9) (units (unknown) date) X106/uL unknown) (unknown) (no (unknown) (unknown) RDW (11.6-14.8) % (units (unknown) date) unknown) (unknown) (no (unknown) (unknown) RDW 13.1 (units (unkno wn) date) (11.6-14.8) % unknown) (unknown) (no (unknown) (unknown) RESPIRATORY: (units (u nknown) date) Breath sounds equal unknown) bilaterally, no wheezes rales or rhonchi. (unknown) (no (unknown) (unknown) RESPIRATORY: (units (u nknown) date) Denies dyspnea, unknown) cough, wheezing (unknown) (no (unknown) (unknown) Radiologist's (units ( unknown) date) Impression: unknown) (unknown) (no (unknown) (unknown) Related Data (units (u nknown) date) unknown) (unknown) (no (unknown) (unknown) Respiratory Rate (units (unknown) date) 18 10/22/22 16:46 unknown) (unknown) (no (unknown) (unknown) Respiratory Rate (units (unknown) date) 18 unknown) (unknown) (no (unknown) (unknown) Result diagrams: (units (unknown) date) unknown) (unknown) (no (unknown) (unknown) Review of Systems (units (unknown) date) unknown) (unknown) (no (unknown) (unknown) SKIN: Facial (units (u nknown) date) erythema over unknown) bridge of nose mostly on the right side inferior (unknown) (no (unknown) (unknown) SKIN: See HPI (units ( unknown) date) unknown) (unknown) (no (unknown) (unknown) Signed By: (units (unk nown) date) unknown) (unknown) (no (unknown) (unknown) Signed (units (unkno wn) date) unknown) (unknown) (no (unknown) (unknown) Sinus tachycardia (units (unknown) date) unknown) (unknown) (no (unknown) (unknown) Sinuses:? (units (unkn own) date) Paranasal sinuses unknown) are aerated without fluid levels, mucosal (unknown) (no (unknown) (unknown) Smoking Status: (units (unknown) date) Current every day unknown) smoker (unknown) (no (unknown) (unknown) Social History (units (unknown) date) (Reviewed 10/22/22 unknown) @ 19:27 by Silvia Langston DO) (unknown) (no (unknown) (unknown) Sodium (137-145) (units (unknown) date) mmol/L unknown) (unknown) (no (unknown) (unknown) Sodium 133 L (units (u nknown) date) (137-145) mmol/L unknown) (unknown) (no (unknown) (unknown) Sodium Chloride (units (unknown) date) (Normal Saline unknown) 0.9%) 1,000 mls @ 1,000 mls/hr IV BOLUS ONE (unknown) (no (unknown) (unknown) Soft tissues:? (units ( unknown) date) Nonspecific soft unknown) tissue edema is seen in the subcutaneous tissues (unknown) (no (unknown) (unknown) Source: patient (units (unknown) date) unknown) (unknown) (no (unknown) (unknown) Stated complaint: (units (unknown) date) Facial swelling unknown) (unknown) (no (unknown) (unknown) Stop: 10/22/22 (units (unknown) date) 18:21 unknown) (unknown) (no (unknown) (unknown) Stop: 10/22/22 (units (unknown) date) 19:21 unknown) (unknown) (no (unknown) (unknown) Stop: 10/22/22 (units (unknown) date) 20:19 unknown) (unknown) (no (unknown) (unknown) Stop: 10/22/22 (units (unknown) date) 20:20 unknown) (unknown) (no (unknown) (unknown) Substance Use (units ( unknown) date) Type: marijuana, unknown) heroin, methamphetamine and other (unknown) (no (unknown) (unknown) TECHNIQUE:? (units (un known) date) unknown) (unknown) (no (unknown) (unknown) Temperature 98.7 F (units (unknown) date) 10/22/22 16:46 unknown) (unknown) (no (unknown) (unknown) Temperature 98.7 F (units (unknown) date) unknown) (unknown) (no (unknown) (unknown) Time Seen by (units (u nknown) date) Provider: 10/22/22 unknown) 19:10 (unknown) (no (unknown) (unknown) Total Bilirubin (units (unknown) date) (0.2-1.3) mg/dL unknown) (unknown) (no (unknown) (unknown) Total Bilirubin (units (unknown) date) 0.7 (0.2-1.3) mg/dL unknown) (unknown) (no (unknown) (unknown) Total Protein (units ( unknown) date) (6.3-8.2) g/dL unknown) (unknown) (no (unknown) (unknown) Total Protein 7.6 (units (unknown) date) (6.3-8.2) g/dL unknown) (unknown) (no (unknown) (unknown) Trimethoprim/Sulfa (units (unknown) date) methoxazole unknown) (Trimeth/Sulfa 160/800 (Ds) Tablet) 1 tab PO NOW (unknown) (no (unknown) (unknown) Unasyn, however he (units (unknown) date) does not want to unknown) stay for the vancomycin. He is not septic, (unknown) (no (unknown) (unknown) Vancomycin HCl (units (unknown) date) (Vancomycin) 750 mg unknown) in 150 mls @ 150 mls/hr IV NOW ONE (unknown) (no (unknown) (unknown) Vascular:? (units (unk nown) date) Visualized vascular unknown) structures appear patent throughout.? Bony (unknown) (no (unknown) (unknown) Visit Report (units (u nknown) date) Forms: Patient unknown) Portal/API (unknown) (no (unknown) (unknown) Visualized (units (unk nown) date) portions of the unknown) skull base and auditory canals also appear normal.? (unknown) (no (unknown) (unknown) Vital Signs - 8 hr (units (unknown) date) unknown) (unknown) (no (unknown) (unknown) Vital Signs (units (un known) date) unknown) (unknown) (no (unknown) (unknown) Vital signs: (units (u nknown) date) unknown) (unknown) (no (unknown) (unknown) WBC (4.5-11.0) (units (unknown) date) X103/uL unknown) (unknown) (no (unknown) (unknown) WBC 11.2 H (units (unk nown) date) (4.5-11.0) X103/uL unknown) (unknown) (no (unknown) (unknown) [Embedded Image (units (unknown) date) Not Available] unknown) (unknown) (no (unknown) (unknown) alcohol intake (units (unknown) date) frequency: 0-2 unknown) drinks per day (unknown) (no (unknown) (unknown) although I think (units (unknown) date) unlikely at this unknown) time, he has absolutely no eye pain with (unknown) (no (unknown) (unknown) amoxicillin 875 (units (unknown) date) mg-potassium 1 tab unknown) PO BID #14 tabs 10/22/22 (unknown) (no (unknown) (unknown) amoxicillin-pot (units (unknown) date) clavulanate 875-125 unknown) mg tablet (unknown) (no (unknown) (unknown) and/or (units (unkno wn) date) unknown) (unknown) (no (unknown) (unknown) at the (units (unkno wn) date) unknown) (unknown) (no (unknown) (unknown) awake alert. Do (units (unknown) date) not think orbital unknown) cellulitis or preseptal at this time he has (unknown) (no (unknown) (unknown) clavulanate 125 mg (units (unknown) date) tablet unknown) (unknown) (no (unknown) (unknown) collection or (units ( unknown) date) abscess.? No unknown) enlarged lymph nodes.? (unknown) (no (unknown) (unknown) destruction.? (units ( unknown) date) unknown) (unknown) (no (unknown) (unknown) difficulty seeing (units (unknown) date) feels like his nose unknown) is congested. He denies any dental pain. (unknown) (no (unknown) (unknown) eye fever or any (units (unknown) date) new, worsening or unknown) concerning symptoms (unknown) (no (unknown) (unknown) fluoxetine 20 mg (units (unknown) date) capsule 20 mg PO unknown) DAILY #30 caps 04/07/21 (unknown) (no (unknown) (unknown) fluoxetine 20 mg (units (unknown) date) capsule unknown) (unknown) (no (unknown) (unknown) foramina and (units (u nknown) date) canals appear unknown) normal.? (unknown) (no (unknown) (unknown) from the (units (unkno wn) date) unknown) (unknown) (no (unknown) (unknown) guarding or (units (un known) date) rebound. unknown) (unknown) (no (unknown) (unknown) happened before. (units (unknown) date) unknown) (unknown) (no (unknown) (unknown) intact (units (unkno wn) date) unknown) (unknown) (no (unknown) (unknown) intraorbital (units (u nknown) date) edema.? No focal unknown) fluid collection or abscess. (unknown) (no (unknown) (unknown) is (units (unkno wn) date) unknown) (unknown) (no (unknown) (unknown) kV according to (units (unknown) date) patient size.? unknown) (unknown) (no (unknown) (unknown) leukocytosis of (units (unknown) date) 11.2 an obvious unknown) cellulitis on his face. No airway compromise. (unknown) (no (unknown) (unknown) membranes (units (unkn own) date) unknown) (unknown) (no (unknown) (unknown) mg-trimethoprim (units (unknown) date) 160 mg tablet unknown) (unknown) (no (unknown) (unknown) mid-neck to the (units (unknown) date) frontal sinuses, unknown) with coronal and sagittal reformats.? For (unknown) (no (unknown) (unknown) minimal pain. Will (units (unknown) date) put him on unknown) Augmentin and Bactrim. (unknown) (no (unknown) (unknown) movement does not (units (unknown) date) involve the whole unknown) periorbital area only the inferior part. (unknown) (no (unknown) (unknown) mucoceles.? (units (un known) date) Mastoid air cells unknown) are aerated.? (unknown) (no (unknown) (unknown) nose beginning to (units (unknown) date) go up into the unknown) orbital area and forehead. No eye pain no (unknown) (no (unknown) (unknown) noted. (units (unkno wn) date) unknown) (unknown) (no (unknown) (unknown) on the area that (units (unknown) date) will also help. 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 Mostly over the bridge of (unknown) (no (unknown) (unknown) propranolol 10 mg (units (unknown) date) tablet 10 mg PO BID unknown) #30 tabs 04/07/21 (unknown) (no (unknown) (unknown) propranolol 10 mg (units (unknown) date) tablet unknown) (unknown) (no (unknown) (unknown) radiation dose (units (unknown) date) unknown) (unknown) (no (unknown) (unknown) reduction, the (units ( unknown) date) following was unknown) used:? automated exposure control, adjustment of mA (unknown) (no (unknown) (unknown) right face just (units (unknown) date) inferior to the unknown) orbit.? No intraorbital edema is seen.? No fluid (unknown) (no (unknown) (unknown) sulfamethoxazole (units (unknown) date) 800 1 tab PO BID 7 unknown) days #14 tabs 10/22/22 (unknown) (no (unknown) (unknown) sulfamethoxazole-t (units (unknown) date) rimethoprim unknown) [Bactrim DS] 800-160 mg tablet (unknown) (no (unknown) (unknown) thickening, or (units (unknown) date) unknown) (unknown) (no (unknown) (unknown) tobacco type: (units ( unknown) date) cigarettes unknown) (unknown) (no (unknown) (unknown) tomorrow. (units (unkn own) date) unknown) (unknown) (no (unknown) (unknown) vascular (units (unkno wn) date) unknown) Result panel 93 (unknown) (no date) (unknown) (unknown) (no value) (units (un known) unknown) (unknown) (no date) (unknown) (unknown) NO GROWTH (units (unk nown) AFTER 24 unknown) HOURS (unknown) (no date) (unknown) (unknown) NO GROWTH (units (unk nown) AFTER 24 unknown) HOURS Result panel 94 (unknown) (no date) (unknown) (unknown) (no value) (units (un known) unknown) (unknown) (no date) (unknown) (unknown) NO GROWTH (units (unk nown) AFTER 24 unknown) HOURS (unknown) (no date) (unknown) (unknown) NO GROWTH (units (unk nown) AFTER 24 unknown) HOURS Result panel 95 (unknown) (no date) (unknown) (unknown) (no value) (units (un known) unknown) (unknown) (no date) (unknown) (unknown) NO GROWTH (units (unk nown) AFTER 48 unknown) HOURS (unknown) (no date) (unknown) (unknown) NO GROWTH (units (unk nown) AFTER 48 unknown) HOURS Result panel 96 (unknown) (no date) (unknown) (unknown) (no value) (units (un known) unknown) (unknown) (no date) (unknown) (unknown) NO GROWTH (units (unk nown) AFTER 48 unknown) HOURS (unknown) (no date) (unknown) (unknown) NO GROWTH (units (unk nown) AFTER 48 unknown) HOURS Result panel 97 (unknown) (no date) (unknown) (unknown) (no value) (units (un known) unknown) (unknown) (no date) (unknown) (unknown) NO GROWTH (units (unk nown) AFTER 72 unknown) HOURS (unknown) (no date) (unknown) (unknown) NO GROWTH (units (unk nown) AFTER 72 unknown) HOURS Result panel 98 (unknown) (no date) (unknown) (unknown) (no value) (units (un known) unknown) (unknown) (no date) (unknown) (unknown) NO GROWTH (units (unk nown) AFTER 72 unknown) HOURS (unknown) (no date) (unknown) (unknown) NO GROWTH (units (unk nown) AFTER 72 unknown) HOURS Result panel 99 (unknown) (no date) (unknown) (unknown) (no value) (units (un known) unknown) (unknown) (no date) (unknown) (unknown) NO GROWTH (units (unk nown) AFTER 4 DAYS unknown) (unknown) (no date) (unknown) (unknown) NO GROWTH (units (unk nown) AFTER 4 DAYS unknown) Result panel 100 (unknown) (no date) (unknown) (unknown) (no value) (units (un known) unknown) (unknown) (no date) (unknown) (unknown) NO GROWTH (units (unk nown) AFTER 4 DAYS unknown) (unknown) (no date) (unknown) (unknown) NO GROWTH (units (unk nown) AFTER 4 DAYS unknown) Result panel 101 (unknown) (no date) (unknown) (unknown) (no value) (units (un known) unknown) (unknown) (no date) (unknown) (unknown) NO GROWTH (units (unk nown) AFTER 5 DAYS unknown) (unknown) (no date) (unknown) (unknown) NO GROWTH (units (unk nown) AFTER 5 DAYS unknown) Result panel 102 (unknown) (no date) (unknown) (unknown) (no value) (units (un known) unknown) (unknown) (no date) (unknown) (unknown) NO GROWTH (units (unk nown) AFTER 5 DAYS unknown) (unknown) (no date) (unknown) (unknown) NO GROWTH (units (unk nown) AFTER 5 DAYS unknown) Social History date description facility 2022-10-22 00:00 Smokes tobacco daily ([facility] Vital Signs date measurement value units 2022-10-22 00:00 BMI 18.7 kg/m2 2022-10-22 00:00 BP_diastolic 59 mmHg 2022-10-22 00:00 BP_systolic 130 mmHg 2022-10-22 00:00 heart_rate 102 /min 2022-10-22 00:00 height_metric 167.64 cm 2022-10-22 00:00 height_standard 66 in 2022-10-22 00:00 o2_saturation 97 % 2022-10-22 00:00 respiration_rate 18 /min 2022-10-22 00:00 temperature_metric 37.06 C 2022-10-22 00:00 temperature_standard 98.7 F 2022-10-22 00:00 weight_metric 52.61 kg 2022-10-22 00:00 weight_standard 115.99 lb
--- NOTE | 2022-11-22 16:29 | ED Physician Documentation ---
PD HPI UPPER EXT INJURY - Stated complaint Stated Complaint: ARM NUMBNESS - Chief complaint Chief Complaint: Ext Problem - History obtained from History obtained from: Patient - Additonal information Additional information: 22-year-old gentleman with history of fentanyl abuse by inhalation woke up yesterday morning with the left arm being numb. He notes numbness on the lateral side of the left forearm and difficulty extending the left wrist. He was high when he went to bed that night. Review of Systems Constitutional: reports: Reviewed and negative Ears: reports: Reviewed and negative Throat: reports: Reviewed and negative Cardiac: reports: Reviewed and negative PD PAST MEDICAL HISTORY - Past Medical History Cardiovascular: None Respiratory: Asthma Neuro: None Endocrine/Autoimmune: None GI: None : None HEENT: None Psych: Depression, Anxiety, Panic attacks Musculoskeletal: None Derm: None - Past Surgical History Past Surgical History: No - Present Medications Home Medications: Ambulatory Orders Medication Instructions Recorded Confirmed DULoxetine [Cymbalta] 30 mg PO DAILY 05/20/21 07/03/21 hydrOXYzine HCL [Hydroxyzine HCl] 25 mg PO DAILY 05/20/21 07/03/21 Buprenorphine HCl/Naloxone HCl 2 film DAILY 06/03/21 07/03/21 [Suboxone 8 mg-2 mg Sl Film] Trazodone HCl 100 mg QPM 06/03/21 07/03/21 clonazePAM [Clonazepam] 0.5 mg PO DAILY 06/03/21 07/03/21 methocarbamoL [Methocarbamol] 500 mg Q8H PRN 06/03/21 07/03/21 - Allergies Allergies/Adverse Reactions: Allergies Allergy/AdvReac Type Severity Reaction Status Date / Time No Known Drug Allergies Allergy Verified 11/17/21 10:51 - Social History Does the pt smoke?: Yes Smoking Status: Current every day smoker Does the pt drink ETOH?: No Does the pt have substance abuse?: Yes - Immunizations Immunizations are current?: Yes - POLST Patient has POLST: No PD ED PE NORMAL - Vitals Vital signs reviewed: Yes - General General: Alert and oriented X 3, No acute distress - Abdomen Abdomen: Normal bowel sounds, Soft, Non tender - Neuro Neuro: Alert and oriented X 3, No motor deficit, Normal speech, Other (He has basically complete numbness in a radial distribution of the left hand and is unable to extend at the wrist. He has numbness up the radial side of the left forearm. Tricep function is intact. He has no numbness throughout the left leg or face.) Eye Opening: Spontaneous Motor: Obeys Commands Verbal: Oriented GCS Score: 15 - Psych Psych: Normal mood, Normal affect Results - Vitals Vitals: Vital Signs - 24 hr 11/22/22 16:14 Temperature 36.8 C Heart Rate 85 Respiratory 17 Rate Blood Pressure 144/91 H O2 Saturation 95 Oxygen O2 Source Room air PD Medical Decision Making - ED course ED course: 22-year-old gentleman presents with a's "Tuesday night palsy" he is placed in a Velcro wrist splint and advised on the generally conservative nature of this diagnosis and the excellent prognosis for albeit slow healing. We discussed his fentanyl abuse and he has been in detox before with success but is not quite ready at this point to entertain that but he understands there is a detox facility in [place] as he has been there before. He is encouraged to return there. Departure - Departure Disposition: 01 Home, Self Care Clinical Impression: Tuesday night palsy Qualifiers: Laterality: left Qualified Code(s): G56.32 - Lesion of radial nerve, left upper limb Condition: Good Record reviewed to determine appropriate education?: Yes Instructions: ED Palsy Radial Nerve Comments: As discussed, this is known as a "Tuesday night palsy." It should heal albeit it can take weeks to months. Return if worse. Follow-up with your primary care physician in a week to assess healing. I encourage you to go to detox when you are ready for help with your fentanyl addiction.
== END 2022-11-22 16:48 | disposition home or self-care (01) ==
LOC: EDUNIT# → ED 16:07
DX: G56.32 Lesion of radial nerve, left upper limb (principal); F17.200 Nicotine dependence, unspecified, uncomplicated
CPT/HCPCS: 99282; 99283

== ENCOUNTER 2023-07-25 08:36 | Outpatient (CLI) | payer MEDICAID | END 2023-07-25 23:59 | disposition EMS.NT | LOC: EMS 08:36 | DX: Z03.89 Encounter for observation for other suspected diseases and conditions ruled out (principal); Z59.02 Unsheltered homelessness ==